=== PATIENT | female | born 1955 | race Caucasian/White ===

== ENCOUNTER 2022-01-07 09:32 | Outpatient (CLI) | payer MEDICARE, SELFPAY ==
--- NOTE | 2022-01-07 09:45 | CRLHL7_ITS ---
For Patients: As a result of the Century Cures Act, medical imaging exams and procedure reports are released immediately into your electronic medical record. You may view this report before your referring provider. If you have questions, please contact your health care provider. BILATERAL MAMMOGRAM WITH COMPUTER-AIDED DETECTION AND TOMOSYNTHESIS TECHNIQUE: CC and MLO views were obtained. These mammographic images have been obtained using full-field digital technique. These mammographic images were interpreted with the benefit of computer-aided detection. Breast Tomosynthesis was used in this interpretation. COMPARISON FILM: 12/21/2020, 12/21/2019, 08/06/2018. FINDINGS: The breasts are almost entirely fatty IMPRESSION: There is no radiographic evidence for malignancy. ASSESSMENT: BI-RADS Category 1: Negative RECOMMENDATION: Routine screening mammogram in 1 year. A lay language report of this examination will be provided to the patient. Ben Neville M.D. Diagnostic Radiologist [email or web address] DAYA/Dictated by: Ben Neville MD @ 01/07/2022 10:49:00 AM (Electronically Signed)
== END 2022-01-07 09:33 | disposition home or self-care (01) ==
LOC: MAMMO 09:39
PROVIDERS: PCP Family Medicine; Visit Provider Family Medicine
DX: Z12.31 Encounter for screening mammogram for malignant neoplasm of breast (principal); R92.2 Inconclusive mammogram
CPT/HCPCS: 77063; 77067

== ENCOUNTER 2022-02-26 13:18 | Outpatient (CLI) | payer MEDICARE, BC, SELFPAY | END 2022-02-26 13:19 | disposition home or self-care (01) | LOC: LONREF 13:19 | PROVIDERS: PCP Family Medicine; Visit Provider Family Medicine | DX: N39.0 Urinary tract infection, site not specified (principal) | CPT/HCPCS: 87086; 87186 ==

== ENCOUNTER 2022-04-24 07:32 | Outpatient (CLI) | payer MEDICARE, BC, SELFPAY ==
--- OUTSIDE RECORDS SUMMARY | 2022-04-24 07:33 | XMS_ITS | Encounter Summary ---
:1955 Author Organization [employer] Address [address] [place] [address] Care Team Providers Name Role Phone Colette Verma PA-C Primary Care Provider Reason for Visit Reason Onset Date Comments Refill 11/05/2018 metFORMIN (GLUCOPHAG E) 1000 MG tablet; omeprazole (PRILOSEC) 20 MG capsule Encounter Details Date Type Department Care Team Description 11/05/2018 Refill [facility] Colette Verma, Refill (metFORMIN Medicine CARLOS (GLUCOPHAGE) 1000 MG [address] tablet; omeprazole [place], [place] [address] (PRILOSEC) 20 [place] [id number] capsule) [phone] Social History Tobacco Use Types Packs/Day Years Used Date Smoking Tobacco: Former Cigarettes Quit : 01/25/2015 Smokeless Tobacco: Never Alcohol Use Standard Drinks/Week Comments Yes 0 (1 standard drink = 0.6 oz pure alcoho l) rare Sex Assigned at Date Recorded Not on file documented as of this encounter Nursing Notes Tiera Matos, RN - 11/08/2018 4:49 PM CDT Further Assistance Needed on Refill from Clinician RN reviewed. Patient overdue for lab(s). -> Rapid A1C ??is overdue (performed over 9 months ago, required every 6 months) ? Last qualifying visit: 02/15/2018 (with COLETTE VERMA) ? Next scheduled visit: None ? GFR (CrCl) estimated: >60 ml/min on 01/25/2018 Rapid A1C : 7.1 % on 01/25/2018 Review pended order for accuracy and sign if appropriate, Document if appointment is needed for further refills and route to care team to notify patient if needed. Requested Prescriptions Pending Prescriptions Disp Refills ??? metFORMIN (GLUCOPHAGE) 1000 MG tablet 360 Tablet 0 Sig: TAKE 2 TABS BY MOUTH TWICE DAILY WITH FOOD Signed Prescriptions Disp Refills ??? omeprazole (PRILOSEC) 20 MG capsule 90 Capsule 1 Sig: Take 1 Capsule by mouth daily. Take 1 hour before a meal. Authorizing Provider: COLETTE VERMA Ordering User: TIERA MATOS Interface, Out Surescripts Prov Query - 11/05/2018 1:21 PM CDT metFORMIN (GLUCOPHAGE) 1000 MG tablet Medication started: 01/25/2018 Last ordered by COLETTE VERMA R: 08/09/2018 (88 days ago) QTY: 360, Refills: 0, Sig: take 2 tabs by mouth twice daily with food (unchanged) -> This medication may not have been authorized by the requested provider. -> Rapid A1C is overdue (performed over 9 months ago, required every 6 months) Last qualifying visit: 02/15/2018 (with COLETTE VERMA) Next scheduled visit: None GFR (CrCl) estimated: >60 ml/min on 01/25/2018 Rapid A1C : 7.1 % on 01/25/2018 PATIENT IS DUE FOR: - HBA1C (PN ONLY) (Sent to [facility]) Powered by [employer], Reference: [id number], 11/05/2018 1:21:06 PM CDT, Pool: LAKVL REFILL ([id number]) omeprazole (PRILOSEC) 20 MG capsule Medication started: 01/25/2018 Last ordered by COLETTE VERMA R: 02/15/2018 (263 days ago) QTY: 90, Refills: 3, Sig: take 1 capsule by mouth daily. take 1 hour before a meal. (unchanged) -> The patient is requesting a renewal from a different pharmacy. -> Refill x 6 months, qty: 90, refills: 1 (until due for an office visit) Last qualifying visit: 02/15/2018 (with COLETTE VERMA) Next scheduled visit: None PATIENT IS DUE FOR: - HBA1C (PN ONLY) (Sent to [facility]) Powered by [employer], Reference: [id number], 11/05/2018 1:21:06 PM CDT, Pool: LAKVL REFILL ([id number]) documented in this encounter Plan of Treatment Not on filedocumented as of this encounter Visit Diagnoses Diagnosis Type 2 diabetes mellitus without complic ation, without long-term current use of insulin (HRC) Gastroesophageal reflux disease without esophagitis Esophageal reflux Essential hypertension (HRC) Unspecified essential hypertension documented in this encounter Care Teams Road Machinery Inspector Relationship Specialty Start Date End Date Colette Verma PA-C PCP - General Physician Public Relations Writer 01/19/18 [address] [place] [address] documented as of this encounter
--- OUTSIDE RECORDS SUMMARY | 2022-04-24 07:33 | XMS_ITS | Encounter Summary ---
:1955 Author Organization [employer] [email or web address] Address [address] [place] [address] Care Team Providers Name Role Phone Colette Verma PA-C Primary Care Provider Encounter Details Date Type Department Care Team Description 11/05/2018 Refill Order [facility] Colette Romero PA-C [address] [facility]. [address] [place] [address] [place] [address] [phone] (Wo rk) Social History Tobacco Use Types Packs/Day Years Used Date Smoking Tobacco: Former Cigarettes Quit : 01/25/2015 Smokeless Tobacco: Never Alcohol Use Standard Drinks/Week Comments Yes 0 (1 standard drink = 0.6 oz pure alcoho l) rare Sex Assigned at Date Recorded Not on file documented as of this encounter Nursing Notes Paulina Bean MA - 11/05/2018 1:38 PM CDT Labs to be addressed at future visit. Interface, Out Surescripts Prov Query - 11/05/2018 1:21 PM CDT SCHEDULE THE FOLLOWING: - HBA1C (PN ONLY) BY: Now (Due as of 07/24/2018 for metFORMIN (GLUCOPHAGE) 1000 MG tablet) - LAST QUALIFYING VISIT WITH COLETTE VERMA: 02/15/2018 - NEXT SCHEDULED VISIT: None - NEXT LAB APPOINTMENT: None Powered by [employer], Reference: [id number], 11/05/2018 1:21:06 PM CDT, Pool: FOREST LIGIA ([id number]) documented in this encounter Plan of Treatment Not on filedocumented as of this encounter Visit Diagnoses Diagnosis Encounter for long-term (current) use of medications - Primary Encounter for long-term (current) use of other medications documented in this encounter Care Teams Pattern Storage Clerk Relationship Specialty Start Date End Date Colette Verma PA-C PCP - General Physician Kiln Mechanic 01/19/18 [address] [place] [address] documented as of this encounter
--- OUTSIDE RECORDS SUMMARY | 2022-04-24 07:33 | XMS_ITS | Encounter Summary ---
:1955 Author Organization [employer] Address [address] [place] [address] Care Team Providers Name Role Phone Colette Verma PA-C Primary Care Provider Reason for Visit Reason Onset Date Comments Refill 11/05/2018 rosuvastatin (CRESTO R) 10 MG tablet; losartan (COZAAR) 25 MG tablet Encounter Details Date Type Department Care Team Description 11/05/2018 Refill [facility] Colette Verma, Refill (rosuvastatin Medicine CARLOS (CRESTOR) 10 MG tablet; [address] losartan (COZAAR) 25 MG [place], [place] [address] tablet) [id number] [phone] Social History Tobacco Use Types Packs/Day Years Used Date Smoking Tobacco: Former Cigarettes Quit : 01/25/2015 Smokeless Tobacco: Never Alcohol Use Standard Drinks/Week Comments Yes 0 (1 standard drink = 0.6 oz pure alcoho l) rare Sex Assigned at Date Recorded Not on file documented as of this encounter Nursing Notes Colette Verma PA-C - 11/07/2018 10:10 AM CDT OK, that's fine then. She should be getting refills from the person she is seeing. Colette Balderrama Ashleigh Vargas LPN - 11/05/2018 4:26 PM CDT Adeola returning phone call, states she has a new provider and has recently had all of her appointments. Adeola will notify the pharmacy to contact her new provider for further medication refills. Ashleigh Vargas LPN - 11/05/2018 4:18 PM CDT Left message for patient to call back. [facility] ([facility]), please warm transfer call to extension [phone] to discuss. If no answer at extension, re-route to appropriate pool per callrouting grid. Message to Patient/Caller: Left message for Kristan to return call to clinic for Colette's message. Colette Verma PA-C - 11/05/2018 4:16 PM CDT Please notify pt I refilled her meds for 30 days only. She is very overdue for annual exam/pap/diabetes check and labs. I would like her to come in for lab only fasting (but well hydrated) to do her labs first some morning as soon as she can and then schedule an annual exam/pap/med check visit for a couple days after that so we can update her full physical, discuss labs, do refills and update preventative medicine needed also. ThanksColette Monserrat Gregg RN - 11/05/2018 1:27 PM CDT Further Assistance Needed on Refill from Clinician RN reviewed. Medication ordered for short term. Please advise if longterm supply is appropriate Last qualifying visit: 02/15/2018 (with COLETTE VERMA) ? Next scheduled visit: None ? Review pended order for accuracy. Sign if appropriate. Document if appointment is needed for furtherrefills. Route to care team to notify patient if needed. Requested Prescriptions Pending Prescriptions Disp Refills ??? rosuvastatin (CRESTOR) 10 MG tablet 90 Tablet 1 Sig: Take 1 Tablet by mouth daily. ??? losartan (COZAAR) 25 MG tablet 90 Tablet 0 Sig: Take 1 Tablet by mouth daily. Interface, Out Surescripts Prov Query - 11/05/2018 1:21 PM CDT losartan (COZAAR) 25 MG tablet Medication started: 02/15/2018 Last ordered by COLETTE VERMA R: 08/04/2018 (93 days ago) QTY: 90, Refills: 1, Sig: take 1 tablet bymouth every day (changed but equivalent) -> Refill x 3 months (until due for a(n) Cr check and K check) Last qualifying visit: 02/15/2018 (with COLETTE VERMA) Next scheduled visit: None SBP: 122 mm Hg on 02/15/2018 DBP: 78 mm Hg on 02/15/2018 Cr: 0.7 mg/dL on 01/25/2018 K: 4.4 mEq/L on 01/25/2018 PATIENT IS DUE FOR: - HBA1C (PN ONLY) (Sent to [facility]) Powered by [email or web address], Reference: [id number], 11/05/2018 1:21:06 PM CDT, Pool: FOREST REFILL ([id number]) rosuvastatin (CRESTOR) 10 MG tablet Medication started: 01/25/2018 Last ordered by COLETTE VERMA: 08/09/2018 (88 days ago) QTY: 30, Refills: 0, Sig: take 1 tablet bymouth every day (changed but equivalent) -> Refill x 6 months, qty: 90, refills: 1 (until due for an office visit) Last qualifying visit: 02/15/2018 (with COLETTE VERMA) Next scheduled visit: None PATIENT IS DUE FOR: - HBA1C (PN ONLY) (Sent to [facility]) Powered by [email or web address], Reference: [id number], 11/05/2018 1:21:06 PM CDT, Pool: FOREST REFILL ([id number]) documented in this encounter Plan of Treatment Not on filedocumented as of this encounter Visit Diagnoses Diagnosis Essential hypertension (HRC) Unspecified essential hypertension Type 2 diabetes mellitus without complic ation, without long-term current use of insulin (HRC) documented in this encounter Care Teams Pharmacy Data Analyst Relationship Specialty Start Date End Date Colette Verma, HEAVENC PCP - General Physician Teleprinter Installer 01/19/18 [address] [place] [address] documented as of this encounter
--- OUTSIDE RECORDS SUMMARY | 2022-04-24 07:33 | XMS_ITS | Encounter Summary ---
:1955 Author Organization [facility] Address [address] [address] Care Team Providers Name Role Phone Colette Verma PA-C Primary Care Provider Encounter Details Date Type Department Care Team Description 07/21/2018 [facility] [address] [address] [place], [place] [id number] [place] [address] [phone] (Wo rk) Social History Tobacco Use Types Packs/Day Years Used Date Smoking Tobacco: Former Cigarettes Quit : 01/25/2015 Smokeless Tobacco: Never Alcohol Use Standard Drinks/Week Comments Yes 0 (1 standard drink = 0.6 oz pure alcoho l) rare Sex Assigned at Date Recorded Not on file documented as of this encounter Plan of Treatment Not on filedocumented as of this encounter Visit Diagnoses Not on filedocumented in this encounter Care Teams Cheese Production Supervisor Relationship Specialty Start Date End Date Colette Verma PA-C PCP - General Physician Retail Sales Assistant 01/19/18 [address] [place] [address] documented as of this encounter
--- OUTSIDE RECORDS SUMMARY | 2022-04-24 07:33 | XMS_ITS | Encounter Summary ---
:1955 Author Organization [facility] Address [address] [place] [address] Care Team Providers Name Role Phone Colette Verma PA-C Primary Care Provider Encounter Details Date Type Department Care Team Description 12/27/2018 Notes/Orders [facility] Colette Verma Screeni ng for colon Medicine PACandice [facility] [address] [address] [address] [place] [address] [phone] Social History Tobacco Use Types Packs/Day Years Used Date Smoking Tobacco: Former Cigarettes Quit : 01/25/2015 Smokeless Tobacco: Never Alcohol Use Standard Drinks/Week Comments Yes 0 (1 standard drink = 0.6 oz pure alcoho l) rare Sex Assigned at Date Recorded Not on file documented as of this encounter Plan of Treatment Not on filedocumented as of this encounter Visit Diagnoses Diagnosis Screening for colon cancer Special screening for malignant neoplasm s, colon documented in this encounter Care Teams Aeronautical Inspector Relationship Specialty Start Date End Date Colette Verma PA-C PCP - General Physician Assessment Technician 01/19/18 [address] [place] [address] documented as of this encounter
--- OUTSIDE RECORDS SUMMARY | 2022-04-24 07:33 | XMS_ITS | Encounter Summary ---
:1955 Author Organization [facility] Address [address] [place] [address] Care Team Providers Name Role Phone Colette Verma PA-C Primary Care Provider Reason for Visit Reason Comments Refill losartan (COZAAR) 25 MG tabl et [Pharmacy Med Name: LOSARTAN POTASSIUM 25 MG TAB] Encounter Details Date Type Department Care Team Description 08/04/2018 Refill [facility] Colette Verma, Refill (losartan Medicine CARLOS (COZAAR) 25 MG tablet [address] [Pharmacy Med Name: [place], [place] [address] LOSARTAN POTASSIUM 25 MG [id number] TAB]) [phone] Social History Tobacco Use Types Packs/Day Years Used Date Smoking Tobacco: Former Cigarettes Quit : 01/25/2015 Smokeless Tobacco: Never Alcohol Use Standard Drinks/Week Comments Yes 0 (1 standard drink = 0.6 oz pure alcoho l) rare Sex Assigned at Date Recorded Not on file documented as of this encounter Nursing Notes Reshma Murphy RN - 08/04/2018 10:30 AM CST Renewed medication per medication refill protocol. Requested Prescriptions Pending Prescriptions Disp Refills losartan (COZAAR) 25 MG tablet [Pharmacy Med Name: LOSARTAN POTASSIUM 25 MG TAB] 90 Tablet 1 Sig: TAKE 1 TABLET BY MOUTH EVERY DAY [facility] Interface, Out Surescripts Prov Query - 08/04/2018 2:16 AM CST losartan (COZAAR) 25 MG tablet [Pharmacy Med Name: LOSARTAN POTASSIUM 25 MG TAB] Medication started: 02/15/2018 Last ordered by COLETTE VERMA R: 02/15/2018 (170 days ago) QTY: 90, Refills: 1, Sig: take 1 tablet by mouth daily. (changed but equivalent) -> Refill x 6 months, qty: 90, refills: 1 (until due for a(n) Cr check and K check) Last qualifying visit: 02/15/2018 (with COLETTE VERMA) Next scheduled visit: None SBP: 122 mm Hg on 02/15/2018 DBP: 78 mm Hg on 02/15/2018 Cr: 0.7 mg/dL on 01/25/2018 K: 4.4 mEq/L on 01/25/2018 Powered by [employer], Reference: [id number], 08/04/2018 2:16:26 AM KATIE, Ayad: FOREST REFILL ([id number]) [address] documented in this encounter Plan of Treatment Not on filedocumented as of this encounter Visit Diagnoses Diagnosis Essential hypertension (HRC) Unspecified essential hypertension documented in this encounter Care Teams Drosophere Operator Relationship Specialty Start Date End Date Colette Verma PA-C PCP - General Physician Nut Sorter 01/19/18 [address] [place], [place] [address] documented as of this encounter
--- OUTSIDE RECORDS SUMMARY | 2022-04-24 07:33 | XMS_ITS | Clinical Summary ---
:[address] [facility] Address [address] [place] [address] Care Team Providers Name Role Phone Colette Verma PA-C Primary Care Provider Source Comments You are receiving this document as you are listed as the primary care provider,follow-up provider, or the patient has been referred to you for consultation.This is in compliance with the Medicare and Medicaid EHR Incentive Program,which states Providers who transition their patient to another setting of careor provider of care or refers their patient to another provider of care shouldprovide summarycare record for each transition of care or referral. [employer] Allergies No known active allergies Medications Medication Sig Dispensed Refills Start Date End Date Status aspirin, enteric-coated Take 81 mg by 0 Active 81 MG enteric coated mouth daily. tablet Adalimumab (HUMIRA) 40 1 shot twice a 0 Active MG/0.4ML PSKT month nystatin (MYCOSTATIN) Apply to rash 60 g 5 01/25/2018 Active 648282 UNIT/GM under breasts creamIndications: bid prn Edwige infection of flexural skin blood glucose (ACCU-CHEK Use to test 100 Strip 3 07/02/2018 Active CARLY PLUS) test strip daily. ICD 10 - E11.9 ACCU-CHEK CARLY PLUS Use to test 1 Each 0 07/02/2018 Active meter daily. DX CODE: E11.9 lancets (ACCU-CHEK Use to test 100 Each 3 07/02/2018 Active FASTCLIX) daily. ICD 10 - E11.9 metFORMIN (GLUCOPHAGE) TAKE 2 TABS BY 360 Tablet 0 08/09/2018 Active 1000 MG MOUTH TWICE tabletIndications: Type DAILY WITH FOOD 2 diabetes mellitus without complication, without long-term current use of insulin (HRC) rosuvastatin (CRESTOR) Take 1 Tablet 30 Tablet 0 11/05/2018 Active 10 MG tabletIndications: by mouth daily. Type 2 diabetes mellitus without complication, without long-term current use of insulin (HRC) omeprazole (PRILOSEC) 20 Take 1 Capsule 90 Capsule 1 9 Active MG capsuleIndications: by mouth daily. Gastroesophageal reflux Take 1 hour disease without before a meal. esophagitis losartan (COZAAR) 25 MG Take 1 Tablet 30 Tablet 0 11/05/2018 Active tabletIndications: by mouth daily. Essential hypertension (HRC) Active Problems Problem Noted Date Type 2 diabetes mellitus without complication, without long-term current 01/25/2018 use of insulin Morbid obesity with BMI of 40.0-44.9, adult 01/25/2018 Psoriasis 01/25/2018 Gastroesophageal reflux disease without esophagitis Hx of bladder cancer 01/25/2018 Essential hypertension 01/25/2018 Edwige infection of flexural skin 01/25/2018 Family History Medical History Relation Name Comments Diabetes Father Heart Disease Father Alzheimer's Mother No Known Problems Son Natanael Relation Name Status Comments Father Mother Alive Son Natanael Alive Social History Tobacco Use Types Packs/Day Years Used Date Smoking Tobacco: Former Cigarettes Quit : 01/25/2015 Smokeless Tobacco: Never Alcohol Use Standard Drinks/Week Comments Yes 0 (1 standard drink = 0.6 oz pure alcoho l) rare Sex Assigned at Date Recorded Not on file Last Filed Vital Signs Vital Sign Reading Time Taken Comments Blood Pressure 122/78 02/15/2018 1:58 PM CDT Pulse 76 02/15/2018 1:58 PM CDT Temperature 36.1 ??C (97 ??F) 01/27/2018 5:00 PM CDT Respiratory Rate 20 01/27/2018 5:00 PM CDT Oxygen Saturation 99% 01/27/2018 5:00 PM CDT Inhaled Oxygen Concentration - - Weight 111.6 kg (246 lb) 01/27/2018 1:00 PM CDT Height 163.8 cm (5' 4.49) 01/27/2018 1:00 PM CDT Body Mass Index 41.59 01/27/2018 1:00 PM CDT Plan of Treatment Health Maintenance Due Date Last Done Comments Colon Cancer Screening Plan 1955 Due Diabetes: Eye Exam 1955 Diabetes: Foot Exam 1955 Diabetes: Lipid Panel 1955 Hep C Screening (Preventive 1955 Services) COVID-19 Vaccine (#1) 01/17/1956 Adult Preventive Visit 1973 Zoster/Shingles (1 of 2) 2005 Diabetes: HGBA1C 04/27/2018 01/25/2018 Mammogram 05/12/2018 05/12/2017 (Completed) Diabetes: Creatinine 01/25/2019 01/25/2018 Diabetes: Urine 02/15/2019 02/15/2018 Microalbumin Pneumococcal 65+ Yrs (2 - 09/28/2021 09/28/2020 PCV) Influenza (#1) 2022 04/17/2020, 04/04/2019, 06/01/2017, Additional history exists DTaP/Tdap/Td (2 - Tdap) 06/09/2024 06/09/2014 HepA Aged Out No longer eligib le based on patient 's age to complete this topic HepB Aged Out No longer eligib le based on patient 's age to complete this topic Hib Aged Out No longer eligib le based on patient 's age to complete this topic IPV (Polio) Aged Out No longer eligib le based on patient 's age to complete this topic MCV4 Aged Out No longer eligib le based on patient 's age to complete this topic Insurance Payer Benefit Plan / Subscriber Effective Phone Address Type Group ID Dates RISK RISK [id number] 11/15/2017-P [phone] Workers Comp ADMINISTRATION ADMINISTRATION resent [phone] SERVICES SERVICES [facility] [place] [phone] CIGNA CIGNA [id number] 06/29/2017-Pr [phone] Commer cial esent [phone] IVÁN MOONEY, ASHWINI [id number] Guarantor Name Account Type Relation to Date of Phone Billing Address Patient Adeola Hector Personal/Famil Self 1955 [id number] ([place]) [facility] [place] [phone] (Work) Adeola Hector Personal/Famil Self [address] y (Home) [place] [phone] [place] (Work) [phone] Adeola Hector Personal/Famil Self [address] (Home) [place] [phone] [place] (Work) [phone] Adeola Hector Workers Comp Self [address] (Home) [place] [address] Adeola Hector Workers Comp Self [address] (Home) [place] [address] Care Teams Water Chemist Relationship Specialty Start Date End Date Colette Verma PA-C PCP - General Physician Naphthalene Operator Helper 01/19/18 [address] [place] [address]
--- OUTSIDE RECORDS SUMMARY | 2022-04-24 07:33 | XMS_ITS | Encounter Summary ---
:1955 Author Organization [facility] Address [address] [place] [address] Care Team Providers Name Role Phone Colette Verma PA-C Primary Care Provider Reason for Visit Reason Onset Date Comments Refill Refill 08/09/2018 Encounter Details Date Type Department Care Team Description 08/08/2018 Refill [facility] Colette Romero PA-C Refill; Refill [address] [address] [place] [address] [place], [place] [phone] (Wo rk) Social History Tobacco Use Types Packs/Day Years Used Date Smoking Tobacco: Former Cigarettes Quit : 01/25/2015 Smokeless Tobacco: Never Alcohol Use Standard Drinks/Week Comments Yes 0 (1 standard drink = 0.6 oz pure alcoho l) rare Sex Assigned at Date Recorded Not on file documented as of this encounter Nursing Notes Susanne Pizano RN - 08/09/2018 2:10 PM CST Renewed medication per medication refill protocol. Requested Prescriptions Signed Prescriptions Disp Refills ??? metFORMIN (GLUCOPHAGE) 1000 MG tablet 360 Tablet 0 Sig: TAKE 2 TABS BY MOUTH TWICE DAILY WITH FOOD Authorizing Provider: COLETTE VERMA Ordering User: SUSANNE PIZANO CREAM MAN Interface, Out Surescripts Prov Query - 08/08/2018 8:44 AM CST metFORMIN (GLUCOPHAGE) 1000 MG tablet [Pharmacy Med Name: METFORMIN HCL 1,000 MG TABLET] Medication started: 01/25/2018 Last ordered by COLETTE VERMA R: 02/15/2018 (174 days ago) QTY: 360, Refills: 1, Si tabs po bid with food (changed) -> This medication may not have been authorized by the requested provider. -> Due to an unreadable sig, manually ensure the patient is due for a renewal. -> The requested sig has changed from the last order. -> Refill x 3 months (courtesy refill, overdue for a(n) Rapid A1C check) Last qualifying visit: 02/15/2018 (with COLETTE VERMA) Next scheduled visit: None GFR (CrCl) estimated: >60 ml/min on 01/25/2018 Rapid A1C : 7.1 % on 01/25/2018 PATIENT IS DUE FOR: - HBA1C (PN ONLY) (Sent to [facility]) Powered by YesVideo, Reference: [id number], 08/08/2018 8:44:50 AM ICE CREAM MAN, Pool: FOREST REFILL ([id number]) CREAM MAN documented in this encounter Plan of Treatment Not on filedocumented as of this encounter Visit Diagnoses Diagnosis Type 2 diabetes mellitus without complic ation, without long-term current use of insulin (HRC) documented in this encounter Care Teams Vac Press Operator Relationship Specialty Start Date End Date Colette Verma PA-C PCP - General Physician Rfid Systems Engineer 01/19/18 [address] [place] [address] documented as of this encounter
--- OUTSIDE RECORDS SUMMARY | 2022-04-24 07:33 | XMS_ITS | Encounter Summary ---
:1955 Author Organization [facility] Address [address] [place] [address] Care Team Providers Name Role Phone Colette Verma PA-C Primary Care Provider Encounter Details Date Type Department Care Team Description 08/08/2018 Refill Order [facility] [address] [facility] [address] [place] [address] [place] [address] [phone] (Wo rk) Social History Tobacco Use Types Packs/Day Years Used Date Smoking Tobacco: Former Cigarettes Quit : 01/25/2015 Smokeless Tobacco: Never Alcohol Use Standard Drinks/Week Comments Yes 0 (1 standard drink = 0.6 oz pure alcoho l) rare Sex Assigned at Date Recorded Not on file documented as of this encounter Nursing Notes Billie Wilson - 08/09/2018 10:27 AM CST Labs to be addressed at future visit. SERVICER HELPER Interface, Out Surescripts Prov Query - 08/08/2018 8:44 AM CST SCHEDULE THE FOLLOWING: - HBA1C (PN ONLY) BY: Now (Due as of 07/24/2018 for metFORMIN (GLUCOPHAGE) 1000 MG tablet) - LAST QUALIFYING VISIT WITH COLETTE VERMA: 02/15/2018 - NEXT SCHEDULED VISIT: None - NEXT LAB APPOINTMENT: None Powered by Codeship, Reference: [id number], 08/08/2018 8:44:50 AM Ayad WILSON: FOREST LIGIA ([id number]) E documented in this encounter Plan of Treatment Not on filedocumented as of this encounter Visit Diagnoses Diagnosis Encounter for long-term (current) use of medications - Primary Encounter for long-term (current) use of other medications documented in this encounter Care Teams Investor Relationship Specialty Start Date End Date Colette Verma PA-C PCP - General Physician Mixer Wet Pour 01/19/18 [address] [place] [address] documented as of this encounter
--- OUTSIDE RECORDS SUMMARY | 2022-04-24 07:33 | XMS_ITS | Encounter Summary ---
:1955 Author Organization [facility] Address [address] [place] [address] Care Team Providers Name Role Phone Colette Verma PA-C Primary Care Provider Reason for Visit Reason Comments Refill rosuvastatin (CRESTOR) 10 MG tablet [Pharmacy Med Name: ROSUVASTATIN CALCIUM 10 MG TAB] Encounter Details Date Type Department Care Team Description 08/08/2018 Refill [facility] Colette Verma, Refill (rosuvastatin Medicine CARLOS (CRESTOR) 10 MG tablet [address]. [address] [facility] [Pharmacy Med Name: [place], [place] [address] ROSUVASTATIN CALCIUM 10 [id number] MG TAB]) [phone] Social History Tobacco Use Types Packs/Day Years Used Date Smoking Tobacco: Former Cigarettes Quit : 01/25/2015 Smokeless Tobacco: Never Alcohol Use Standard Drinks/Week Comments Yes 0 (1 standard drink = 0.6 oz pure alcoho l) rare Sex Assigned at Date Recorded Not on file documented as of this encounter Nursing Notes Delilah Treviño LPN - 08/09/2018 12:55 PM CST Spoke with patient let her know that RX has been sent in for refill, but no additional refills will be given until patient is seen for annual exam. Patient should come and have lab work done prior to appointment, labs are pended. TER HAND Colette Verma PA-C - 08/09/2018 12:33 PM CST Please call pt and let them know they are overdue for annual exam and diabetes check and need to schedule that before anymore refills after this one. I put in her lab orders so I would like her to do fasting labs first (but drink water that day) and then see me a couple days after that for annual exam/diabetes check and we'll go over the labs also. Colette Balderrama TER HAND Monserrat Gregg, RN - 08/09/2018 10:31 AM CST Further Assistance Needed on Refill from Clinician RN reviewed. Medication ordered for short term. Please advise if deputy of counter intelligence supply is appropriate Last qualifying visit: 02/15/2018 (with COLETTE VERMA) ? Next scheduled visit: None ? Review pended order for accuracy. Sign if appropriate. Document if appointment is needed for furtherrefills. Route to care team to notify patient if needed. Requested Prescriptions Pending Prescriptions Disp Refills ??? rosuvastatin (CRESTOR) 10 MG tablet [Pharmacy Med Name: ROSUVASTATIN CALCIUM 10 MG TAB] 90 Tablet 2 Sig: TAKE 1 TABLET BY MOUTH EVERY DAY TER HAND Interface, Out Surescripts Prov Query - 08/08/2018 8:44 AM CST rosuvastatin (CRESTOR) 10 MG tablet [Pharmacy Med Name: ROSUVASTATIN CALCIUM 10 MG TAB] Medication started: 01/25/2018 Last ordered by COLETTE VERMA R: 02/15/2018 (174 days ago) QTY: 90, Refills: 1, Sig: take 1 tablet by mouth daily. (changed but equivalent) -> Refill x 9 months, qty: 90, refills: 2 (until due for an office visit) Last qualifying visit: 02/15/2018 (with COLETTE VERMA) Next scheduled visit: None PATIENT IS DUE FOR: - HBA1C (PN ONLY) (Sent to [facility]) Powered by Intelipost, Reference: [id number], 08/08/2018 8:44:50 AM PLEATER HAND, Pool: FOREST REFILL ([id number]) TER HAND documented in this encounter Plan of Treatment Not on filedocumented as of this encounter Visit Diagnoses Diagnosis Essential hypertension (HRC) - Primary Unspecified essential hypertension Type 2 diabetes mellitus without complic ation, without long-term current use of insulin (HRC) documented in this encounter Care Teams Reporting Developer Relationship Specialty Start Date End Date Colette Verma, PADebiC PCP - General Physician Transport Coordinator 01/19/18 [address] [place] [address] documented as of this encounter
--- OUTSIDE RECORDS SUMMARY | 2022-04-24 07:33 | XMS_ITS | Encounter Summary ---
:1955 Author Organization [facility] Address [address] [place] [address] Care Team Providers Name Role Phone Colette Verma PA-C Primary Care Provider Reason for Visit Reason Onset Date Comments Refill 07/02/2018 Encounter Details Date Type Department Care Team Description 07/02/2018 Refill [facility] Colette Romero PA-C Refill [address]. [address] [place] [address] [place], [place] [phone] (Wo rk) Social History Tobacco Use Types Packs/Day Years Used Date Smoking Tobacco: Former Cigarettes Quit : 01/25/2015 Smokeless Tobacco: Never Alcohol Use Standard Drinks/Week Comments Yes 0 (1 standard drink = 0.6 oz pure alcoho l) rare Sex Assigned at Date Recorded Not on file documented as of this encounter Nursing Notes Monserrat Gregg, RN - 07/02/2018 5:07 PM CST Renewed medication per medication refill protocol. Requested Prescriptions Signed Prescriptions Disp Refills ??? blood glucose (ACCU-CHEK CARLY PLUS) test strip 100 Strip 3 Sig: Use to test daily. ICD 10 - E11.9 Authorizing Provider: COLETTE VERMA Ordering User: MONSERRAT GREGG ??? ACCU-CHEK CARLY PLUS meter 1 Each 0 Sig: Use to test daily. DX CODE: E11.9 Authorizing Provider: COLETTE VERMA Ordering User: MONSERRAT GREGG ??? lancets (ACCU-CHEK FASTCLIX) 100 Each 3 Sig: Use to test daily. ICD 10 - E11.9 Authorizing Provider: COLETTE VERMA Ordering User: MONSERRAT GREGG SPORTATION CONSULTANT documented in this encounter Plan of Treatment Not on filedocumented as of this encounter Visit Diagnoses Not on filedocumented in this encounter Care Teams Certified Athletic Trainer Relationship Specialty Start Date End Date Colette Verma, PADebiC PCP - General Physician Software Developer Mid Level 01/19/18 [address] [place] [address] documented as of this encounter
--- OUTSIDE RECORDS SUMMARY | 2022-04-24 07:34 | XMS_ITS | Encounter Summary ---
:1955 Author Organization [facility] Address [address] [place] [address] Care Team Providers Name Role Phone Bayron Colette Pagan PA-C Primary Care Provider Encounter Details Date Type Department Care Team Description 01/27/2018 Anesthesia Event [facility] Nasrin Carlton MD [address] [place], [place] [address] [address] [facility] Yossi Allen MD [address] [place] [address] [place], [place] [address] Anesthesia Record Procedure Summary Procedure Name Responsible Anesthesia Start Anesthesia Stop Anesthesiologist Time Time RIGHT knee arthroscopy Nasrin Carlton 01/27/18 1431 01/27/18 1516 jose Pagan MD meniscectomy, chondroplasty (Right: Knee) Events Date Time Event Comment 01/27/2018 1326 IV plmt Shima diaz APRN, PIPELINE SUPERINTENDENT DIVISION 1333 IV Plmt Comp IV was placed in Preop area by Shima Ham APRN, ERICA for a dministration of IV fluids, IV antibiotics, and IV pre-op sedation. Patient was continuously mon itored by Shima Ham APRN, CRNA durin g the placement. 1431 An Start 1435 MD/DO Present 1438 An Start Data 1438 An Induction 1500 MD/DO Present 1511 an stop data 1516 An Stop Care transferred . 1516 Care Handoff Note I discussed wi th the receiving nurse and we: 1) Identified the p atient, branch family member(s) or patient surrogat e 2) Identified the responsible practitioner 3) Reviewed the pertinent medical history 4) Discu ssed the surgical/procedure course 5) Reviewed intr a-op anesthesia management and issues during an esthesia 6) Set expectations for the post-procedu re period 7) Allowed opportunity for questions an d acknowledgement of understanding of report Electr onically signed by Margaux Thornton APRN, C RNA Name Total ceFAZolin (aka ANCEF) 2 g in dextrose 100 ml IVPB 2 g midazolam 2 mg/2 mL injection (aka VERSED) 2 mg FENTanyl injection (aka SUBLIMAZE) 100 mcg propofol 10 mg/mL (aka diPRIvan) 175.77 mg lidocaine 2% PF injection aka (XYLOCAINE) 60 mg ketorolac 30 mg/mL injection (aka TORADOL) 30 mg dextrose 50% injection (aka d50) 25 mL lactated ringer infusion 800 mL Agents Name O2 Blood No blood administrations on file. Lines, Drains, and Airways Type Details Placement Removal Peripheral IV Placement Date: 01/27/18 1326 by 02/10/18 1725 b y Lda, 01/27/18; Placement Shima Ham ue Time: 1326; CLEO Lares CRNA Pre-existing: No; Inserted by?: PIPELINE SUPERINTENDENT DIVISION; Orientation: Right; Site Prep: Alcohol; Local Anesthetic: Injectable, Lidocaine 1%; Insertion attempts: 1; Blood draw with insertion?: no; Patient Tolerance: Tolerated well; Removal Date: 02/10/18; Removal Time: 1725 Incision/Surgical Site 01/27/18; 1454; #1; 01/27/18 1454 by 0811/13 1725 by Tashi, No; Knee; Right; Liss Shah Discontinu e 02/10/18; 1725 RN documented in this encounter Social History Tobacco Use Types Packs/Day Years Used Date Smoking Tobacco: Former Cigarettes Quit : 01/25/2015 Smokeless Tobacco: Never Alcohol Use Standard Drinks/Week Comments Yes 0 (1 standard drink = 0.6 oz pure alcoho l) rare Sex Assigned at Date Recorded Not on file documented as of this encounter Miscellaneous Notes Anesthesia Postprocedure Evaluation - Luis Lama MD - 01/27/2018 3:59 PM CDT [facility] Anesthesia Post-op Note Patient: Adeola Hector Post-Op Diagnosis: Right knee pain Procedure Performed: Procedure(s): RIGHT knee arthroscopy partial medial meniscectomy, chondroplasty Anesthesia Type: Spinal Post-op vital signs: BP (P) 107/56 Pulse (!) (P) 53 Temp 97.7 ??F (36.5 ??C) (Oral) Resp (P) 16 Ht 5' 4.49 Wt 111.6 kg (246 lb) SpO2 (P) 94% BMI 41.59 kg/m2 Pain Score: Preferred Pain Scale: (P) number (Numeric Rating Pain Scale) Pain Rating (0-10): Rest: (P) 0 Post-op assessment: No anesthesia complication. Patient location: PACU Airway Status: Patent Cardiovascular function: Satisfactory Hydration status: Satisfactory PONV: None Level of Consciousness: Awake Fully Participates Postop Assessment: Patient tolerated procedure well. Electronically signed by: Luis Lama MD 01/27/2018 3:59 PM Anesthesia Preprocedure Evaluation - Nasrin Carlton MD - 01/27/2018 3:06 PM CDT [facility] Anesthesia Pre-op Evaluation Procedure: Procedure(s): RIGHT knee arthroscopy partial medial meniscectomy, chondroplasty HPI: 62 y.o. old female with Right knee pain NPO Status: Last Fluid Intake Time: 2300 Last Fluid Intake Date: 01/26/18 (0930 sips apple juice with meds) Last Food Intake Date: 01/26/18 Last Food Intake Time: 2299 No Known Allergies Past Medical History: Diagnosis Date ??? Cancer (HRC) 2012 bladder ??? Diabetes mellitus (HRC) ??? Gastroesophageal reflux disease ??? Obese (HRC) ??? Plaque psoriasis ??? Type 2 diabetes mellitus (HRC) Patient Active Problem List Diagnosis ??? Type 2 diabetes mellitus without complication, without long-term current use of insulin (HRC) ??? Morbid obesity with BMI of 40.0-44.9, adult (HRC) ??? Psoriasis ??? Gastroesophageal reflux disease without esophagitis ??? Hx of bladder cancer ??? Essential hypertension (HRC) ??? Edwige infection of flexural skin Past Surgical History: Procedure Laterality Date ??? BLADDER SURGERY 2012 bladder cancer ??? TONSILLECTOMY Outpatient Prescriptions Marked as Taking for the 01/27/18 encounter (Hospital Encounter) Medication Sig Dispense Refill ??? Adalimumab (HUMIRA) 40 MG/0.4ML PSKT 1 shot twice a month ??? amLODIPine (NORVASC) 5 MG tablet Take 5 mg by mouth daily. ??? metFORMIN (GLUCOPHAGE) 1000 MG tablet Take 1,000 mg by mouth two times a day with meals. ??? omeprazole (PRILOSEC) 20 MG capsule Take 20 mg by mouth daily. Take 1 hour before a meal. ??? rosuvastatin (CRESTOR) 10 MG tablet Take 10 mg by mouth daily. ??? [DISCONTINUED] omeprazole (PRILOSEC) 10 MG capsule Take 10 mg by mouth daily. Take 1 hour beforea meal. Current Facility-Administered Medications Medication Dose Route Frequency ??? chloroprocaine (NESACAINE) 3 % injection 2 mL 2 mL Regional Nerve Block Once ??? dextrose (D50) injection 25 g 25 g Intravenous PRN based on Blood Sugar ??? ropivacaine (NAROPIN) injection ONCE PRN Facility-Administered Medications Ordered in Other Encounters Medication Dose Route Frequency ??? dextrose (D50) injection ??? fentaNYL (SUBLIMAZE) injection Intravenous ??? ketorolac (TORADOL) injection Intravenous ??? lactated ringers infusion Intravenous ??? lidocaine 2% PF (XYLOCAINE) injection Intravenous ??? midazolam (aka VERSED) injection Intravenous ??? propofol (aka diPRIvan) injection Intravenous Labs: Lab Results Component Value Date/Time SODIUM 139 01/25/2018 02:25 PM K 4.4 01/25/2018 02:25 PM CHLORIDE 102 01/25/2018 02:25 PM BUN 19 01/25/2018 02:25 PM CREATININE 0.70 01/25/2018 02:25 PM GLUCOSE 108 (H) 01/25/2018 02:25 PM Lab Results Component Value Date/Time WBC 8.9 01/25/2018 02:25 PM HGB 15.6 (H) 01/25/2018 02:25 PM HCT 46.4 (H) 01/25/2018 02:25 PM PLTS 236 01/25/2018 02:25 PM No results found for: INR No results found for: HCGQUANT Urine : Urine : Blood Bank: No results found for: ABORH, ABSCR EKG: No results found for this or any previous visit. Physical Exam: BP (!) 144/66 Pulse 72 Temp 98.4 ??F (36.9 ??C) (Oral) Resp 18 Ht 5' 4.49 Wt 111.6 kg (246 lb) SpO2 96% BMI 41.59 kg/m2 Assessment/Plan: Review of Systems Patient has GERD. GERD controlled with medication. Patient is not a smoker. The patient denies alcohol use. Patient denies any recent URI. History of PONV: No. History of motion sickness: No. Patient denies any personal or family history of anesthesia complications (PONV). Exam Mental Status: Alert and oriented. Mallampati score: I (One). Mouth opening: Normal Thyromental Distance: > 3 finger breadths and Normal Neck Extension: Full Neck Circumference > 40 cm?: No Current airway assessment:Normal Dentition: Normal. Cardiac Exam: Regular rate and rhythm. Respiratory Exam: Breath sounds clear to auscultation Assessment ASA Status: 3 . Plan Anesthesia type: Spinal Induction: Maintenance: Postoperative pain management (PONV): Plan for postoperative opioid use PONV Risk Score Peds:0 PONV Risk Score Adult: 3 Anesthetic plan, risks, benefits and alternatives discussed with: Patient H&P Reviewed and Patient examined, no change observed IV access Antibiotics per surgery Electronically signed by: Nasrin Carlton MD 01/27/2018 3:06 PM documented in this encounter Plan of Treatment Not on filedocumented as of this encounter Visit Diagnoses Not on filedocumented in this encounter Administered Medications Inactive Administered Medications - up to 3 most recent administrations Medication Order MAR Action Action Date Dose Rate Site ceFAZolin (aka ANCEF) 2 g in Given 01/27/2018 2:35 PM CDT 2 g dextrose 100 ml IVPB 2 g, Intravenous, Administer over 30 Minutes, ONCE, On Thu01/27/18 at 1400, For 1 dose, Infuse within 60 minutes prior to incision; Re-dose 1 gram IV every 4 hours after initial dose until incision closed., Pre-op dextrose (D50) injection Given 01/27/2018 2:49 PM CDT 25 mL Starting on Thu01/27/18 at 1449 fentaNYL (SUBLIMAZE) injection Given 01/27/2018 2:35 PM CDT 100 mcg Intravenous, Starting on Thu01/27/18 at 1435 ketorolac (TORADOL) injection Given 01/27/2018 3:04 PM CDT 30 mg Intravenous, Starting on Thu01/27/18 at 1504, Until Thu01/27/18 at 1516 lactated ringers infusion Started 01/27/2018 2:31 PM CDT Starting on Thu01/27/18 at 1431 lidocaine 2% PF (XYLOCAINE) injection Given 01/27/2018 2:36 PM CDT 60 mg Intravenous, Starting on Thu01/27/18 at 1436, Until Thu01/27/18 at 1516 midazolam (aka VERSED) injection Given 01/27/2018 2:35 PM CDT 2 mg Intravenous, Starting on Thu01/27/18 at 1435 propofol (aka diPRIvan) Started 01/27/2018 2:40 PM 75 mcg/kg/min 5 0.22 mL/hr injection CDT Intravenous, Starting on Thu01/27/18 at 1440 documented in this encounter Care Teams Chemical Treatment Plant Technician Relationship Specialty Start Date End Date Colette Verma PA-C PCP - General Physician Medical Technologist Generalist 01/19/18 [address] [place] [address] documented as of this encounter
--- OUTSIDE RECORDS SUMMARY | 2022-04-24 07:34 | XMS_ITS | Encounter Summary ---
:1955 Author Organization [facility] Address [address] [place] [address] Care Team Providers Name Role Phone Unavailable Primary Care Provider Unavailable Encounter Details Date Type Department Care Team Description 04/21/2018 Hospital Encounter Department of [facility] Drug Screen Laboratory Medicine, S, SUPPORT COORDINATOR, C.N.P., [facility], [place] [address] [place] [address] [place] [address] [phone] (Wo rk) Social History Tobacco Use Types Packs/Day Years Used Date Smoking Tobacco: Never Assessed Sex Assigned at Date Recorded Not on file documented as of this encounter Plan of Treatment Not on filedocumented as of this encounter Visit Diagnoses Diagnosis Drug Screen documented in this encounter
--- OUTSIDE RECORDS SUMMARY | 2022-04-24 07:34 | XMS_ITS | Encounter Summary ---
:1955 Author Organization [facility] Address [address] [place] [address] Care Team Providers Name Role Phone Bayron Colette Pagan PA-C Primary Care Provider Encounter Details Date Type Department Care Team Description 01/27/2018 Surgery [facility] Pablito Luque MD RIGHT knee arthroscopy [address] [facility] Driv e [address] [facility] [address] partial medial [place], [place] [address] [place], [place] meniscectomy, [address] chondroplasty [phone] (Wo rk) Social History Tobacco Use Types Packs/Day Years Used Date Smoking Tobacco: Former Cigarettes Quit : 01/25/2015 Smokeless Tobacco: Never Alcohol Use Standard Drinks/Week Comments Yes 0 (1 standard drink = 0.6 oz pure alcoho l) rare Sex Assigned at Date Recorded Not on file documented as of this encounter Last Filed Vital Signs Vital Sign Reading Time Taken Comments Blood Pressure 144/66 01/27/2018 1:00 PM CDT Pulse 72 01/27/2018 1:00 PM CDT Temperature 36.9 ??C (98.4 ??F) 01/27/2018 1:00 PM CDT Respiratory Rate 18 01/27/2018 1:00 PM CDT Oxygen Saturation 96% 01/27/2018 1:00 PM CDT Inhaled Oxygen Concentration - - Weight 111.6 kg (246 lb) 01/27/2018 1:00 PM CDT Height 163.8 cm (5' 4.49) 01/27/2018 1:00 PM CDT Body Mass Index 41.59 01/27/2018 1:00 PM CDT documented in this encounter Medications at Time of Discharge Medication Sig Dispensed Refills Start Date End Date Adalimumab (HUMIRA) 40 1 shot twice a month 0 MG/0.4ML PSKT aspirin, enteric-coated Take 81 mg by mouth 0 81 MG enteric coated daily. tablet nystatin (MYCOSTATIN) Apply to rash under 60 g 5 01/25 316329 UNIT/GM breasts bid prn creamIndications: Edwige infection of flexural skin amLODIPine (NORVASC) 5 MG Take 5 mg by mouth 0 02/15/2018 tablet daily. HYDROcodone-acetaminophen Take 1 Tablet by 20 Tablet 0 08/0 06/201702/15/2018 (NORCO) 5-325 MG tablet mouth every 4 hours as needed. metFORMIN (GLUCOPHAGE) Take 1,000 mg by 0 02/15/2018 1000 MG tablet mouth two times a day with meals. omeprazole (PRILOSEC) 20 Take 20 mg by mouth 0 02/15/2018 MG capsule daily. Take 1 hour before a meal. rosuvastatin (CRESTOR) 10 Take 10 mg by mouth 0 02/15/2018 MG tablet daily. documented as of this encounter Procedure Notes Pablito Luque MD - 01/27/2018 12:00 PM CDT NAME: ADEOLA HECTOR MR#: [id number] CSN: [id number] AUTHENTICATING CLINICIAN: Pablito Luque MD CONFIRM #: [id number] LOC: 725 OPERATIVE REPORT DATE OF OPERATION: 01/27/2018 : 1955 SURGEON: Pabilto Luque MD PREOPERATIVE DIAGNOSIS: Right knee medial meniscus tear. POSTOPERATIVE DIAGNOSIS: Right knee medial meniscus tear along with chondromalacia of the patella, trochlea, and medial femoral condyle. FIRST DIGITAL PROOFING AND PLATEMAKER: Va Crabtree PA-C ANESTHESIA: Spinal and local. ESTIMATED BLOOD LOSS: Per the anesthesia record. IV FLUIDS: Per the anesthesia record. TOURNIQUET: Tourniquet was placed but not inflated. COMPLICATIONS: None. IMPLANTS: None. BRIEF HPI: The patient is an otherwise healthy 62-year-old female who had progressively worsening medial-sided right knee pain with associated swelling and mechanical symptoms. She failed extensive conservative treatment, and eventually an MRI was obtained. MRI showed evidence of a medial meniscus tear and some mild chondromalacia. Risks and benefits of both nonoperative and operative management were discussed,and she elected to proceed with surgical intervention. DESCRIPTION OF PROCEDURE: Patient was identified in the preoperative holding area, and the right knee was marked. History, physical exam, radiographs, and laboratory values were reviewed. After informed consent was obtained sparkle gram of Ancef antibiotics given prophylactically, she was brought to the operating room. She was placed on the operating room table in a supine position, and spinal anesthesia was administered. An exam under anesthesia demonstrated full range of motion of the knee, and the skin was intact. At this point, a well-padded tourniquet was placed high on the right thigh, leg was placed in an arthroscopic legholder and prepped and draped in the usual sterile fashion. After a [id number], a standard superolateral, inferolateral, and inferomedial portals were established and the knee joint was explored. The articular cartilage of the patella and trochlear groove showed some diffuse grade 2 and early grade 3 chondromalacic changes. This was debrided back to st able tissue with a full-radius shaver. The suprapatellar pouch, medial and lateral gutters were entered, and there was no synovitis or loose bodies noted. The medial compartment was entered. The articular cartilage of the medial femoral condyle and medialtibial plateau was largely intact. There was a small area of chondromalacia on the central weightbearing portion of the medial femoral condyle, and this was debrided back to stable tissue with a full-radius shaver. The medial meniscus was then probed, and there was a radial tear with a horizontal oblique component and a moderate-size flap component measuring about a 1.75 cm in length. This involved the white-white and red-white zones. This was unstable and not felt to be repairable, and an upbiting basket and full-radius shaver were used to debride this back to stable tissue. The remaining meniscus was probed and stable. The notch was explored, and the ACL and PCL were within normal limits. The lateral compartment was entered. The articular cartilage of the lateral femoral condyle and lateral tibial plateau was within normal limits. The lateral meniscus was probed and stable. At this point, all fluid and soft tissue was suctioned out of the knee joint, 30 mL of 0.5% ropivacaine was injected into the knee joint for postoperative pain control, and simple 3-0 nylon sutures were used to close the skin incisions. A sterile compressive dressing was placed over the knee joint itself. The patient was then awakened from the anesthetic and brought to the recovery room in stable condition. All sponge and needle counts were correct according to the nursing staff. KJA:MEDQ C: R:02/01/18 11:43 CONFIRM#:[id number] documented in this encounter Plan of Treatment Not on filedocumented as of this encounter Procedures Procedure Name Priority Date/Time Associated Diagnosis Comme nts ARTHROSCOPIC MENISCECTOMY 01/27/2018 2:34 PM Right kne e pain KNEE CDT documented in this encounter Visit Diagnoses Diagnosis Right knee pain Pain in joint, lower leg documented in this encounter Administered Medications Inactive Administered Medications - up to 3 most recent administrations Medication Order MAR Action Action Date Dose Rate Site dextrose (D50) injection 25 g 25 g, Intravenous, PRN BASED ON BLOOD ANN GAR, Blood Sugar <, Starting on Thu01/27/18 at 1338, PACU & Post-op ropivacaine (NAROPIN) injection Given 01/27/2018 3:02 PM CDT 30 mL Right Knee ONCE PRN, Starting on Thu01/27/18 at 1502, Until Thu01/27/18 at 1925, Intra-op documented in this encounter Active and Recently Administered Medications Times are shown in CDT. Scheduled Medication Order 01/25/2018 01/26/2018 01/27/2018 ceFAZolin (aka ANCEF) 2 g in dextrose 100 ml IVPB (COMPLETED) 1435 (Given - Provider: Margaux Thornton APRN, ZIPPER SETTER LOCKSTITCH) 2 g, Intravenous, Administer over 30 Min utes, ONCE, On Thu01/27/18 at 1400, For 1 dose, Infuse within 60 minutes prior to incision; Re-dose 1 gram IV every 4 hours after initial dose until incision closed., Pre-op chloroprocaine (NESACAINE) 3 % injection 2 mL 1400 (Due) 2 mL, Regional Nerve Block, ONCE, Thu01/27/18 at 1400, For 1 dose , Pre-op PRN Medication Order 01/25/2018 01/26/2018 01/27/2018 dextrose (D50) injection 25 g 25 g, Intravenous, PRN BASED ON BLOOD ANN GAR, Blood Sugar <, Starting Thu01/27/18 at 1338, PACU & Post-op ropivacaine (NAROPIN) injection 1502 (Given - Provider: Va Crabtree PA-C) ONCE PRN, Starting Thu01/27/18 at 1502, Intra-op documented in this encounter Care Teams Bartacker Relationship Specialty Start Date End Date Colette Verma PA-C PCP - General Physician Highway Administrative Engineer 01/19/18 [address] [place] [address] documented as of this encounter
--- OUTSIDE RECORDS SUMMARY | 2022-04-24 07:34 | XMS_ITS | Encounter Summary ---
:1955 Author Organization [facility] Address [address] [place] [address] Care Team Providers Name Role Phone Colette Verma PA-C Primary Care Provider Reason for Visit Reason Comments LAB RESULTS Encounter Details Date Type Department Care Team Description 01/26/2018 Telephone [facility] Colette Romero PA-C LAB RESULTS [id number] [address] [place] [address] [place], [place] [phone] (Wo rk) Social History Tobacco Use Types Packs/Day Years Used Date Smoking Tobacco: Former Cigarettes Quit : 01/25/2015 Smokeless Tobacco: Never Alcohol Use Standard Drinks/Week Comments Yes 0 (1 standard drink = 0.6 oz pure alcoho l) rare Sex Assigned at Date Recorded Not on file documented as of this encounter Nursing Notes Savanna Caruso CMA - 01/26/2018 1:23 PM CDT Spoke with patient informed her of message below. Nothing else needed. No further questions. Savanna Caruso CMA - 01/26/2018 1:23 PM CDT ----- Message from Colette Verma PA-C sent at 01/26/2018 11:04 AM CDT ----- Please call pt and let her know her labs look fine for surgery tomorrow, thanks. Colette documented in this encounter Plan of Treatment Not on filedocumented as of this encounter Visit Diagnoses Not on filedocumented in this encounter Care Teams Licensed Practical Nurse Clinic Nurse Relationship Specialty Start Date End Date Colette Verma PA-C PCP - General Physician Concrete Pourer 01/19/18 [address] [place] [address] documented as of this encounter
--- OUTSIDE RECORDS SUMMARY | 2022-04-24 07:34 | XMS_ITS | Encounter Summary ---
:1955 Author Organization [facility] Address [address] [place] [address] Care Team Providers Name Role Phone Colette Verma PA-C Primary Care Provider Reason for Visit Reason Comments QUESTIONS, GENERAL work comp paperwork Encounter Details Date Type Department Care Team Description 06/09/2018 Telephone [facility] Pablito Luque MD QUESTIONS, GENERAL CENTER [address] [place] [address] (work comp paperwork) [address] [place], [place] [phone] (Wo rk) Social History Tobacco Use Types Packs/Day Years Used Date Smoking Tobacco: Former Cigarettes Quit : 01/25/2015 Smokeless Tobacco: Never Alcohol Use Standard Drinks/Week Comments Yes 0 (1 standard drink = 0.6 oz pure alcoho l) rare Sex Assigned at Date Recorded Not on file documented as of this encounter Nursing Notes Va Ferrera RN - 06/09/2018 3:02 PM CST Pt of Rebel status-post??right knee arthroscopy, partial medial meniscectomy and chondroplasty??completed on 01/27/2018??. Last OV 05/11. Sumanth from [employer] is requesting for Dr. Luque to fill out a form that was originally sent 05/24 and fax back. Paperwork was faxed here and sent to [employer]. Claim # [id number] Fax completed form to [phone] N[facility]OX documented in this encounter Plan of Treatment Not on filedocumented as of this encounter Visit Diagnoses Not on filedocumented in this encounter Care Teams Plasma Specialist Relationship Specialty Start Date End Date Colette Verma PADebiC PCP - General Physician Pet Resort Concierge 01/19/18 [address] [place] [address] documented as of this encounter
--- OUTSIDE RECORDS SUMMARY | 2022-04-24 07:34 | XMS_ITS | Encounter Summary ---
:1955 Author Organization [facility] Address [address] [place] [address] Care Team Providers Name Role Phone Unavailable Primary Care Provider Unavailable Encounter Details Date Type Department Care Team Description 08/03/2020 Immunization Urgent Care, [facility] Rolando Cevallos En counter For COVID-19 [place], in [place] Deras M.D. Vaccine Immunization [place], [place] [address] [place] [phone] Social History Tobacco Use Types Packs/Day Years Used Date Smoking Tobacco: Never Assessed Sex Assigned at Date Recorded Not on file documented as of this encounter Plan of Treatment Not on filedocumented as of this encounter Visit Diagnoses Diagnosis Encounter For COVID-19 Vaccine Immunizat ion documented in this encounter
--- OUTSIDE RECORDS SUMMARY | 2022-04-24 07:34 | XMS_ITS ---
:1955 Author Care Team Providers Name Role Phone ElizabethleighannDaniel Primary Care Provider Unavailable Allergies Code Code System Name Reaction Severity Status Onset 20301203 RxNorm Keflex Diarrhea ? Active ? Medications Name Status Start Date Stop Date ? ? betamethasone, augmented 0.05 % topical cream Active ? Not available APPLY TO BOTH LOWER LEGS TWO TIMES A DA Y FOR 2-3 WEEKS, THEN TWICE DAILY NEEDED FOR FLARES cefuroxime axetil 500 mg tablet Active ? Not available Take 1 tablet every 12 hours by oral route for 7 days. celecoxib 200 mg capsule Completed ? 022 TAKE ONE CAPSULE BY MOUTH ONCE DAILY Contour Next One Meter Active ? Not avail able USE DIRECTED ONCE DAILY Contour Next Test Strips Active ? Not mateus ilable USE DIRECTED ONCE DAILY glipizide ER 10 mg tablet, extended release 24 hr Active ? Not available TAKE ONE TABLET BY MOUTH ONCE DAILY glipizide ER 5 mg tablet, extended release 24 hr Completed ? 04/14/2022 TAKE ONE TABLET BY MOUTH ONCE DAILY Januvia 100 mg tablet Completed ? 04/14/2022 TAKE ONE TABLET BY MOUTH ONCE DAILY ketoconazole 2 % topical cream Completed ? 1 APPLY TO THE LOWER ABDOMEN ONCE DAILY losartan 25 mg tablet Active ? Not availa ble metformin 1,000 mg tablet Active ? Not av ailable TAKE ONE TABLET BY MOUTH TWICE A DAY WITH MEALS omeprazole 20 mg capsule,delayed release Active ? Not available TAKE ONE CAPSULE BY MOUTH ONCE DAILY rosuvastatin 10 mg tablet Active ? Not av ailable Skyrizi 150 mg/1.66 mL(75 mg/0.83 mL x 2) subcutaneous syringe k it Active ? Not available Inject by subcutaneous route. sulfamethoxazole 800 mg-trimethoprim 160 mg tablet Completed ? 04/14/2022 TAKE ONE TABLET BY MOUTH TWICE A DAY triamcinolone acetonide 0.025 % topical cream Completed ? 04/14/2022 APPLY TOPICAL ROUTE TO THE EAR TWO TIME S A DAY FOR 2-3 WEEKS , THEN 2 DAYS A WEEK AFTER. Problems None recorded. Procedures Date Name Performed by ? ? Transurethral Resection of Neoplasm of I nformation not available Bladder 04/14/2022 CT, Urogram [facility] Radiology Department [address] [place], [place] [id number] (Work Place) Results Lab Results Date Name Specimen Result Interpretation Description Value Range Status Address ? 04/14/2022 Culture, UR ABNORMAL Final microbiology ? Fin saul [place] Urine Report results [facility] [place]: [address] [facility] [address], [place] 04/14/2022 Urinalysis, ? Color-S Yellow ? ? [facility]: Dipstick tatus [address], [place] ? ? ? pH-Stat 6.0 ? ? [facility] : us [address], [place] ? ? ? Nitrate negative ? ? [facility]: s-Status [address], [place] ? ? ? Blood-S Trace ? ? [facility] : tatus [address], [place] ? ? ? Leuko-S Moderate ? ? [facility]: tatus [address], [place] Past Encounters 04/14/2022 History of Malignant Neoplasm of Bladder ; Microscopic Hematuria Daniel Pires MD: [address], [place] [address], Ph. Social History Tobacco Smoking Status Former Smoker Vaccine List Vaccine Type pneumococcal polysaccharide PPV23 09/28/2020 Plan of Care Reminders Provider Appointments None recorded. ? ? Lab None recorded. ? ? Referral None recorded. ? ? Procedures None recorded. ? ? Surgeries None recorded. ? ? Imaging None recorded. ? ? Vitals Height Weight 5 ft 4 in 239 lbs
--- OUTSIDE RECORDS SUMMARY | 2022-04-24 07:34 | XMS_ITS | Encounter Summary ---
:1955 Author Organization [facility] Address [address] [place] [address] Care Team Providers Name Role Phone Unassigned, Provider Primary Care Provider Unavailable Reason for Visit Reason Comments Knee Pain or Injury right Encounter Details Date Type Department Care Team Description 01/05/2018 Office Visit [facility] Pablito Luque MD Tear of medial meniscus of right knee, u nspecified tear type, unspecified whether old or current tear, initial encounter (Primary Dx); [address] Chondromalacia, right knee [address] [place], [place] [address] [phone] (Wo rk) Social History Tobacco Use Types Packs/Day Years Used Date Smoking Tobacco: Never Smokeless Tobacco: Never Sex Assigned at Date Recorded Not on file documented as of this encounter Last Filed Vital Signs Vital Sign Reading Time Taken Comments Blood Pressure - - Pulse - - Temperature - - Respiratory Rate - - Oxygen Saturation - - Inhaled Oxygen Concentration - - Weight 112 kg (247 lb) 01/05/2018 2:41 PM CDT Height 162.6 cm (5' 4) 01/05/2018 2:41 PM CDT Body Mass Index 42.4 01/05/2018 2:41 PM CDT documented in this encounter Progress Notes Pablito Luque MD - 01/05/2018 3:00 PM CDT [facility] Consult[facility] 01/05/2018 Chief Complaint: Right knee pain History of Present Illness: Adeola Hector is a 62 y.o. female worker's compensation patient who presents for evaluation of right knee pain. 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 She notes that she has been limping and is unable to walk well. She localizes her pain to the medial compartment of her knee. Her pain is made worse with weight bearing. She wasoriginally seen at a [facility] in [place]. Since she has recently moved to the [facility], so she no longer works for the job she was injured at and is set to have a new job here in the [facility]. The intake sheet was reviewed with the patient. This was up-to-date including medications, past surgical history and social history, as well as risk factors, complete review of systems and family health history and scanned into electronic medical record. Physical Exam: 1.626 m (5' 4) 112 kg (247 lb) General: Pleasant 62 y.o. female in no acute distress. Appropriate affect. Alert and oriented x 3. Walks with a non-antalgic gait. Musculoskeletal: Lumbosacral range of motion is full and pain-free. Neurovascular: Neurovascularly intact distally. Skin: No erythema, ecchymosis, atrophy, or effusion. Right Knee: No crepitation in the patellofemoral joint. Range of motion is 0-130 degrees. Mildly positive Cliff's for the medial compartment. Negative Cliff's for the lateral compartment. Ligamentously stable to varus and valgus loading testing. Negative anterior drawer, posterior drawer, Sonny's and pivot shift tests. Imaging: MRI of the right knee - Performed at an outs (12/07/17): 1. Medial meniscal tear. 2. Inflammation of the MCL. 3. Mild medial compartment arthritis. 4. Mild lateral and patellofemoral chondromalacia. 5. Trace effusion. Reading per radiology. I independently reviewed and interpreted the imaging studies above; the results were discussed with the patient. Assessment: Diagnosis and Associated Orders ICD-10-CM 1. Tear of medial meniscus of right knee, unspecified tear type, unspecified whether old or current tear, initial encounter S83.241A 2. Chondromalacia, right knee M94.261 mild Plan: We had a detailed discussion about the implications of the diagnosis, as well as possible treatment options. At this time her work restrictions will remain unchanged. Risks and benefits of both nonoperative and operative management were discussed. Risks of surgery were discussed. These included but were not limited to risks of bleeding, infection, possible injury to vessels and nerves, possible incomplete pain relief, and possible need for future surgery. We also discussed the possibility of partialmeniscectomy versus meniscal repair and the anatomy behind that decision intraoperatively. Patient verbalized understanding and wished to proceed with surgery. All of her questions were answered. Scribe Disclosure: Michael Haynes, am serving as a scribe to document services personally performed by Pablito Luque MD at this visit, based upon the provider's statements to me. All documentation has been reviewed by the aforementioned provider prior to being entered into the official medical record. Portions of this medical record were completed by a scribe. UPON MY REVIEW AND AUTHENTICATION BY ELECTRONIC SIGNATURE, this confirms (a) I performed the applicable clinical services, and (b) the recordis accurate. Pablito Luque MD documented in this encounter Plan of Treatment Not on filedocumented as of this encounter Visit Diagnoses Diagnosis Tear of medial meniscus of right knee, u nspecified tear type, unspecified whether old or current tear, initial encounter - Miladis amandeep Chondromalacia, right knee documented in this encounter Care Teams Visual Journalist Relationship Specialty Start Date End Date Unassigned, Provider PCP - General 08/30/00 01/18/[address] [place] [address] documented as of this encounter
--- OUTSIDE RECORDS SUMMARY | 2022-04-24 07:34 | XMS_ITS | Encounter Summary ---
:1955 Author Organization [facility] Address [address] [place] [address] Care Team Providers Name Role Phone Colette Verma PA-C Primary Care Provider Reason for Visit Reason Onset Date Comments Refill 05/13/2018 Encounter Details Date Type Department Care Team Description [facility] [facility] Ref[facility] [address] [address] [place] [address] [place], [place] [phone] (Wo rk) Social History Tobacco Use Types Packs/Day Years Used Date Smoking Tobacco: Former Cigarettes Quit : 01/25/2015 Smokeless Tobacco: Never Alcohol Use Standard Drinks/Week Comments Yes 0 (1 standard drink = 0.6 oz pure alcoho l) rare Sex Assigned at Date Recorded Not on file documented as of this encounter Nursing Notes Tammie Cornejo RN - 05/13/2018 2:47 PM CST Resent BROKER Geetha Martinez - 05/13/2018 1:58 PM CST Further assistance needed to complete refill request Reason: Clarification for medication regimen needed. Pharmacy asking for MORE specific directions, for insurance billing purposes. Next Steps: Triage to complete refill as appropriate. CURRENT PRESCRIPTION: Drug Name/Strength: One Touch Verio Test Strips Sig: Use to test daily [facility] PH: [phone] BROKER documented in this encounter Plan of Treatment Not on filedocumented as of this encounter Visit Diagnoses Not on filedocumented in this encounter Care Teams Neighborhood Worker Relationship Specialty Start Date End Date Colette Verma PADebiC PCP - General Physician Comic Book Artist 01/19/18 [address] [place] [address] documented as of this encounter
--- OUTSIDE RECORDS SUMMARY | 2022-04-24 07:34 | XMS_ITS | Encounter Summary ---
:1955 Author Organization [facility] Address [address], [place] [address] Care Team Providers Name Role Phone Bayron Colette Pagan PA-C Primary Care Provider Reason for Visit Reason Comments Knee Pain or Injury right Encounter Details Date Type Department Care Team Description 05/11/2018 Office Visit [facility] Pablito Luque MD S/P arthroscopic partial medial meniscec ej (Primary Dx); CENTER [address] [place] [address] [facility] [address] [place], [place] [address] [phone] (Wo rk) Social History Tobacco Use Types Packs/Day Years Used Date Smoking Tobacco: Former Cigarettes Quit : 01/25/2015 Smokeless Tobacco: Never Alcohol Use Standard Drinks/Week Comments Yes 0 (1 standard drink = 0.6 oz pure alcoho l) rare Sex Assigned at Date Recorded Not on file documented as of this encounter Patient Instructions Patient InstructionsFátima Forbes, ATC - 05/11/2018 11:[address] Pablito Luque MD Orthopaedic Surgeon Designer Architect: Karis Zaragoza Please contact Karis for all administrative questions at [phone] Physician Contract Officer: Va Crabtree PA-C Nurse: Randi Schultz Please contact Randi for any medical questions at [phone] Medication Requests: Prescriptions are not filled on Weekends or on Weekdays after 3:00PM For all medication refills: Request a refill using [employer] or contact your Pharmacy ERN ROOM WORKING SUPERVISOR documented in this encounter Progress Notes Pablito Luque MD - 05/11/2018 11:00 AM CST Orthopaedic Surgery Postoperative Follow-Up 05/11/2018 History of Present Illness: Adeola Hector is a 62 y.o. female worker's compensation patient, 3 months status- post right knee arthroscopy, partial medial meniscectomy and chondroplasty completed on 01/27/2018 who presents today forpostoperative follow-up. I last evaluated this patient on 03/09/18, at which time she reported to bedoin well postoperatively. Noted occasional shooting right knee pain, and some difficulty with stairs due to soreness. It was recommended that she continue with physical therapy, transitioning to a home therapy program with instruction from the therapist. Workability form provided for sedentary work.Today, she reports mild pain with extension. Denies swelling or signs of infection. Denies any new or worsening symptoms. Physical Exam: General: Pleasant 62 y.o. female in no acute distress. Appropriate affect. Alert and oriented x 3. Walks with a non-antalgic gait. Neurovascular: Neurovascularly intact distally. Skin: Well-healed incisions. Right Knee: Full extension. 115 degrees of flexion. No medial or lateral joint line tenderness. Assessment: Diagnosis and Associated Orders ICD-10-CM 1. S/P arthroscopic partial medial meniscectomy Z98.890 right knee with chondroplasty 2. Follow-up examination after orthopedic surgery Z09 Plan: I am pleased with this patient's progress postoperatively. Continue with home therapy exercises and symptomatic management as needed. Patient is at [facility]. Workability forms provided. Released without restrictions. Follow-up as needed. Can call for a visco or steroid injection in the future. Scribe Disclosure: I, Arcadio Prado, am serving as a scribe to document [...] (b) the recordis accurate. Pablito Luque MD ERN ROOM WORKING SUPERVISOR documented in this encounter Plan of Treatment Not on filedocumented as of this encounter Visit Diagnoses Diagnosis S/P arthroscopic partial medial meniscec ej - Primary Follow-up examination after orthopedic s urgery Follow-up examination, following other s urgery documented in this encounter Care Teams Pipeline Systems Operator Relationship Specialty Start Date End Date Colette Verma PA-C PCP - General Physician Contract Officer 01/19/18 [address] [place] [address] documented as of this encounter
--- OUTSIDE RECORDS SUMMARY | 2022-04-24 07:34 | XMS_ITS | Encounter Summary ---
:1955 Author Organization [facility] Address [address] [place] [address] Care Team Providers Name Role Phone Colette Verma PA-C Primary Care Provider Encounter Details Date Type Department Care Team Description 02/15/2018 Lab Visit [facility] Type 2 diabetes mellitus [id number] without complication, [place] [address] without long-term current [phone] use of insulin (HRC) Social History Tobacco Use Types Packs/Day Years [...] Name Priority Date/Time Associated Diagnosis Comme nts ALBUMIN/CREAT RATIO Routine 02/15/2018 2:40 PM Type 2 diabetes Results for this CDT mellitus without procedure a re in complication, the results without long-term section. current use of insulin (HRC) documented in this encounter Results Microalb/Creat Ratio (02/15/2018 2:40 PM CDT) P athologist Signature Microalbumin 29.7 mg/L PN SOFT Urine U Creat Random 121 mg/dL PN SOFT Microalbumin/Crea 24.5 0.0 - 30.0 PN SOFT tinine Ratio Specimen Anatomical Collection Method Collection Time Receive d Time (Source) Location / / Volume Laterality Urine specimen 02/15/2018 2:40 PM 018 4:52 (specimen) CDT PM CDT Narrative ELISEO MARINO - 02/15/2018 5:49 PM CDT Performed at [facility] ([facility] [address] [facility], [place] [address] CLIA number [id number] Colette Verma PA-C LAB_1 Performing Organization Address City/State/ZIP Code Phon e Number PN SOFT [address] [place] [address] documented in this encounter Visit Diagnoses Diagnosis Type 2 diabetes mellitus without complic ation, without long-term current use of insulin (HRC) documented in this encounter Care Teams Adult Services Librarian Relationship Specialty Start Date End Date Colette Verma PA-C PCP - General Physician News Camera Person 01/19/18 [address] [place] [address] documented as of this encounter
--- OUTSIDE RECORDS SUMMARY | 2022-04-24 07:34 | XMS_ITS | Encounter Summary ---
:1955 Author Organization [facility] Address [address] [place] [address] Care Team Providers Name Role Phone Colette Verma PA-C Primary Care Provider Reason for Referral Procedure/Equipment (Routine) - Incomplete Specialty Diagnoses / Procedures Referred By Contact Refer red To Contact Diagnoses Surgery, elective Pablito Luque MD Procedures YASMEEN Arthroscopy Knee Rt [address] [place] [address] Referral ID Status Reason Start Date Expiration Date Visits V isits Requested Authorized [id number] Incomplete 01/25/2018 04/26/2019 1 1 Encounter Details Date Type Department Care Team Description 01/25/2018 Notes/Orders [facility] Pablito Luque MD Surgery, elective CENTER [address] [place] [address] (Primary Dx) [address] [place], [place] [address] [phone] (Wo rk) Social History Tobacco Use Types Packs/Day Years Used Date Smoking Tobacco: Former Cigarettes Quit : 01/25/2015 Smokeless Tobacco: Never Alcohol Use Standard Drinks/Week Comments Yes 0 (1 standard drink = 0.6 oz pure alcoho l) rare Sex Assigned at Date Recorded Not on file documented as of this encounter Plan of Treatment Not on filedocumented as of this encounter Results YASMEEN Arthroscopy Knee Rt (01/27/2018 12:05 PM CDT) Anatomical Region Laterality Modality Lower Extremity, Knee Endoscopy Specimen (Source) Anatomical Location Collection Method / Collectio n Time Received Time / Laterality Volume Pablito Luque MD RAD NON-REPORTABLES documented in this encounter Visit Diagnoses Diagnosis Surgery, elective - Primary Unspecified elective surgery for purpose s other than remedying health states documented in this encounter Care Teams Legal Clerk Relationship Specialty Start Date End Date Colette Verma PA-C PCP - General Physician Fisheries Officer 01/19/18 [address] [place] [address] documented as of this encounter
--- OUTSIDE RECORDS SUMMARY | 2022-04-24 07:34 | XMS_ITS | Encounter Summary ---
:1955 Author Organization [facility] Address [address] [place] [address] Care Team Providers Name Role Phone Unavailable Primary Care Provider Unavailable Encounter Details Date Type Department Care Team Description 02/12/2021 Orders Only [facility] PCP TH Sa pat Maldonado M.D. [address] [place], [place] [phone] (Wo rk) Social History Tobacco Use Types Packs/Day Years Used Date Smoking Tobacco: Never Assessed Sex Assigned at Date Recorded Not on file documented as of this encounter Plan of Treatment Not on filedocumented as of this encounter Visit Diagnoses Not on filedocumented in this encounter
--- OUTSIDE RECORDS SUMMARY | 2022-04-24 07:34 | XMS_ITS | Encounter Summary ---
:1955 Author Organization [facility] Address [address] [place] [address] Care Team Providers Name Role Phone Colette Verma PA-C Primary Care Provider Encounter Details Date Type Department Care Team Description 01/25/2018 Lab Visit [facility] Preoperative examination; [id number] [address] Type 2 diabetes mellitus wit hout complication, without long-term current use of insulin (HRC) [place] [address] Social History Tobacco Use Types Packs/Day Years Used Date Smoking Tobacco: Former Cigarettes Quit : 01/25/2015 Smokeless Tobacco: Never Alcohol Use Standard Drinks/Week Comments Yes 0 (1 standard drink = 0.6 oz pure alcoho l) rare Sex Assigned at Date Recorded Not on file documented as of this encounter Progress Notes Colette Verma PA-C - 01/26/2018 11:04 AM CDT Please call pt and let her know her labs look fine for surgery tomorrow, thanks. Colette documented in this encounter Plan of Treatment Not on filedocumented as of this encounter Procedures Procedure Name Priority Date/Time Associated Diagnosis Comme nts COMP METABOLIC Routine 01/25/2018 2:25 PM Type 2 diabetes Resu lts for this PANEL CDT mellitus without procedure a re in complication, without the re sults long-term current use sectio n. of insulin (HRC) COMPLETE BLOOD Routine 01/25/2018 2:25 PM Preoperative Results for this COUNT-NO DIFF CDT examination procedure are in the results section. HGB A1C Routine 01/25/2018 2:25 PM Type 2 diabetes Result s for this CDT mellitus without procedure a re in complication, without the re sults long-term current use sectio n. of insulin (HRC) documented in this encounter Results (ABNORMAL) Hgb A1c (01/25/2018 2:25 PM CDT) athologist Signature HGB A1C 7.1 (H) 4.0 - 5.6 % PN SOFT Specimen Anatomical Collection Method Collection Time Receive d Time (Source) Location / / Volume Laterality 01/25/2018 2:25 PM 8 6:21 CDT PM CDT Narrative PN SOFT - 01/25/2018 11:00 PM CDT Performed at [facility], [facility] [place] [address] CLIA number [id number] Colette Verma PA-C LAB_1 Performing Organization Address City/State/ZIP Code Phon e Number PN SOFT [address] [place] [phone] (ABNORMAL) Comp Metabolic Panel (01/25/2018 2:25 PM CDT) [facility] gist Method Time Signature Aspartate 33 10 - 40 PN SOFT Aminotransferase U/L Lab Glucose 108 (H) 70 - 100 PN SOFT mg/dL Comment: The stated glucose range is for the fast ing state. Non-fasting glucose range is 70-180 mg/d L Bilirubin Total 0.9 0.2 - 1.2 mg/dL PN SOFT Calcium 9.9 8.4 - 10.4 mg/dL PN SOFT Sodium 139 136 - 145 mmol/L PN SOFT Potassium 4.4 3.5 - 5.2 mmol/L PN SOFT Blood Urea Nitrogen 19 9 - 26 mg/dL PN SOFT Albumin 4.0 3.4 - 5.0 g/dL PN SOFT Chloride 102 98 - 109 mmol/L PN SOFT Alk Phos 80 40 - 150 U/L PN SOFT Protein Total, Serum 8.1 6.4 - 8.3 g/dL PN S OFT Creatinine Serum 0.70 0.55 - 1.02 mg/dL PN SO FT Est GFR Am >60 >60 mL/min/1.73m2 PN SOFT Est GFR Non-Afr Am >60 >60 mL/min/1.73m2 PN SOFT Comment: Normal>60, moderate decrease 30 - 59, se melo decrease 15 - 29, renal failure <15 mL/min/1.73 m2 NOTE: ??Choose the eGFR result above inge ropriate for the race of the patient. Alanine Aminotransferase 31 9 - 55 U/L PN S OFT CO2 26 22 - 31 mmol/L PN SOFT Specimen Anatomical Collection Method Collection Time Receive d Time (Source) Location / / Volume Laterality 01/25/2018 2:25 PM 8 4:51 CDT PM CDT Narrative PN SOFT - 01/25/2018 5:36 PM CDT Performed at [facility], [address] [place] [address] CLIA number [id number] Colette Verma PA-C LAB_1 Performing Organization Address [facility] Phon e Number PN SOFT [address] [place] [address] [phone] (ABNORMAL) Complete Blood Count-No Diff (01/25/2018 2:25 PM CDT) [facility] gist Method Time Signature White Blood Cell 8.9 3.8 - 11.0 PN SOFT Count k/cmm Red Blood Cell 5.38 (H) 3.70 - PN SOFT Count 5.20 m/cmm Hemoglobin 15.6 (H) 11.8 - PN SOFT 15.5 g/dL Hematocrit 46.4 (H) 35.0 - PN SOFT 46.0 % Mean Corpuscular 86.2 80.0 - PN SOFT Volume 100.0 fL RDW 13.7 11.0 - PN SOFT 15.0 % Platelet Count 236 140 - 450 PN SOFT k/cmm Specimen Anatomical Collection Method Collection Time Receive d Time (Source) Location / / Volume Laterality 01/25/2018 2:25 PM 8 2:25 CDT PM CDT Narrative PN SOFT - 01/25/2018 2:27 PM CDT Performed at [facility], [address] [place] [address] CLIA number [id number] Colette R Bayron PA-C LAB_1 Performing Organization Address City/State/ZIP Code Phon e Number PN SOFT [address] [place] [address] [phone] documented in this encounter Visit Diagnoses Diagnosis Preoperative examination Preoperative examination, unspecified Type 2 diabetes mellitus without complic ation, without long-term current use of insulin (HRC) documented in this encounter Care Teams Show Host/Hostess Relationship Specialty Start Date End Date Colette Verma PA-C PCP - General Physician Disability Counselor 01/19/18 [address] [place] [address] documented as of this encounter
--- OUTSIDE RECORDS SUMMARY | 2022-04-24 07:34 | XMS_ITS | Encounter Summary ---
:1955 Author Organization [facility] Address [address] [place] [address] Care Team Providers Name Role Phone Unavailable Primary Care Provider Unavailable Reason for Referral Specialty Diagnoses / Procedures Referred By Contact Refer red To Contact Trace Renee M.D. [facility] [address] [place] [address] Referral ID Status Reason Start Date Expiration Date Visits Requ ested Visits Authorized RER WHARF Encounter Details Date Type Department Care Team Description 06/29/2020 Orders Only [facility] PCP [facility] Trace Renee Jr., M.D. [address] [facility] [address] [place] [phone] (Wo rk) Social History Tobacco Use Types Packs/Day Years Used Date Smoking Tobacco: Never Assessed Sex Assigned at Date Recorded Not on file documented as of this encounter Plan of Treatment Scheduled Referrals Name Type Priority Associated Order Schedule Diagnoses Covid immunization Outpatient Referral Routine Ex pected: office visit Initial 021 (Approximate), Expires: 06/29/2021 documented as of this encounter Visit Diagnoses Not on filedocumented in this encounter
--- OUTSIDE RECORDS SUMMARY | 2022-04-24 07:34 | XMS_ITS | Encounter Summary ---
:1955 Author Organization [facility] Address [address] [place] [address] Care Team Providers Name Role Phone Colette Verma PA-C Primary Care Provider Encounter Details Date Type Department Care Team Description 01/27/2018 Hospital Encounter [facility] Pablito Luque MD [address] [facility] Ricardo e [address] [facility] [place], [place] [address] [place], [place] [phone] (Wo rk) Social History Tobacco Use Types Packs/Day Years Used Date Smoking Tobacco: Former Cigarettes Quit : 01/25/2015 Smokeless Tobacco: Never Alcohol Use Standard Drinks/Week Comments Yes 0 (1 standard drink = 0.6 oz pure alcoho l) rare Sex Assigned at Date Recorded Not on file documented as of this encounter Last Filed Vital Signs Vital Sign Reading Time Taken Comments Blood Pressure 104/44 01/27/2018 5:00 PM CDT Pulse 57 01/27/2018 5:00 PM CDT Temperature 36.1 ??C (97 ??F) [...] to rash under 60 g 5 01/25 702218 UNIT/GM breasts bid prn creamIndications: Edwige infection [...] 12:00 PM CDT NAME: ADEOLA HECTOR MR#: [id number] CSN: [id number] AUTHENTICATING CLINICIAN: Pablito Luque MD CONFIRM #: [id number] LOC: 725 OPERATIVE REPORT DATE OF OPERATION: 01/27/2018 : 1955 SURGEON: Pablito Luque MD PREOPERATIVE DIAGNOSIS: Right knee medial meniscus tear. POSTOPERATIVE DIAGNOSIS: Right knee medial meniscus tear along with chondromalacia of the patella, trochlea, and medial femoral condyle. FIRST COMPRESSOR SERVICE TECHNICIAN: Va Crabtree PA-C ANESTHESIA: Spinal and local. [...] in the usual sterile fashion. After a ognmv-plu-fpt-cause, a standard superolateral, inferolateral, and inferomedial portals [...] were correct according to the nursing staff. CONI:BECKY C: R:02/01/18 11:43 CONFIRM#:[id number] documented in this encounter Plan of Treatment Not on filedocumented as of this encounter Procedures Procedure Name Priority Date/Time Associated Diagnosis Comme nts ARTHROSCOPIC MENISCECTOMY 01/27/2018 2:34 PM Right kne e pain KNEE CDT documented in this encounter Visit Diagnoses Not on filedocumented [...] 1435 (Given - Provider: Margaux Thornton APRN, [employer]) 2 g, Intravenous, Administer over 30 Min [...] Intra-op documented in this encounter Care Teams Laundry Equipment Operator Relationship Specialty Start Date End Date Colette Verma PA-C PCP - General Physician Music Librarian 01/19/18 [address] [place] [address] documented as of this encounter
--- OUTSIDE RECORDS SUMMARY | 2022-04-24 07:34 | XMS_ITS | Encounter Summary ---
:1955 Author Organization [facility] Address [address] [place] [address] Care Team Providers Name Role Phone Colette Vemra PA-C Primary Care Provider Reason for Visit Reason Onset Date Comments Medication Questions 05/12/2018 Encounter Details Date Type Department Care Team Description 05/12/2018 Telephone [facility] Colette Verma, Medicat ion Questions Medicine [place] [address] [address] [address] [place], [place] [address] [phone] Social History Tobacco Use Types Packs/Day Years Used Date Smoking Tobacco: Former Cigarettes Quit : 01/25/2015 Smokeless Tobacco: Never Alcohol Use Standard Drinks/Week Comments Yes 0 (1 standard drink = 0.6 oz pure alcoho l) rare Sex Assigned at Date Recorded Not on file documented as of this encounter Nursing Notes Haritha Jaime RN - 05/12/2018 12:05 PM CST Called patient back to request which test strips she uses. States she moved to [place] the end of November. Has a One Touch Verio, is almost out of strips. Requested Prescriptions Signed Prescriptions Disp Refills ??? blood glucose (ONETOUCH VERIO) test strip 100 Strip 1 Sig: Use to test daily. Use as directed. Pharmacy dispense brand based on insurance. Authorizing Provider: COLETTE VERMA Ordering User: HARITHA JAIME OV 02/15/18 NING OPERATIONS SPECIALIST Mai Roman - 05/12/2018 10:12 AM CST Further assistance needed to complete refill request Reason: Clarification for medication regimen needed. Pharmacy asking for specific directions, for insurance billing purposes. Next Steps: Triage to complete refill as appropriate. CURRENT PRESCRIPTION: Drug Name/Strength: blood glucose test strip Sig: Use ??to test as needed for Blood Sugar >. Use as directed. Pharmacy dispense brand based oninsurance. NING OPERATIONS SPECIALIST documented in this encounter Plan of Treatment Not on filedocumented as of this encounter Visit Diagnoses Not on filedocumented in this encounter Care Teams Roastmaster Relationship Specialty Start Date End Date Colette Verma PA-C PCP - General Physician Strategic Planner 01/19/18 [address] [place] [address] documented as of this encounter
--- OUTSIDE RECORDS SUMMARY | 2022-04-24 07:34 | XMS_ITS | Encounter Summary ---
:1955 Author Organization [facility] Address [address] [place] [address] Care Team Providers Name Role Phone Colette Verma PA-C Primary Care Provider Reason for Referral Therapies (Routine) - Closed Specialty Diagnoses / Procedures Referred By Contact Refer red To Contact Diagnoses Right knee pain, unspecified chronicity Pablito Luque MD [address] [facility] [place] [address] Referral ID Status Reason Start Date Expiration Date Visits Requ ested Visits Authorized [id number] Closed 02/03/2018 04/04/2018 1 1 Scheduling Instructions If scheduling assistance is needed, ajit asher inquire with the medical office staff upon exiting your appointment or contact the ordering clinic for recommended locations. This recommended service/s may not be co nimco by your insurance coverage. To find out your specific benefit coverage, please c all the number on your insurance card. Reason for Visit Reason Comments QUESTIONS, GENERAL Encounter Details Date Type Department Care Team Description 02/03/2018 Telephone [facility] Pablito Luque MD QUESTIONS, GENERAL [address] [facility] [address] [place] [address] [place] [address] [place] [address] [phone] (Wo rk) Social History Tobacco Use Types Packs/Day Years Used Date Smoking Tobacco: Former Cigarettes Quit : 01/25/2015 Smokeless Tobacco: Never Alcohol Use Standard Drinks/Week Comments Yes 0 (1 standard drink = 0.6 oz pure alcoho l) rare Sex Assigned at Date Recorded Not on file documented as of this encounter Nursing Notes Kacie Connelly RN - 02/03/2018 12:34 PM CDT Valerie Valdez, nurse correctional case records supervisor from [facility] called for operative report from 01/27/[address] Luque and for an outside order for PT so she can go closer to [employer]. Order placed, and op note from 01/27/18 and order faxed to Valerie at F#[phone]. documented in this encounter Plan of Treatment Scheduled Referrals Name Type Priority Associated Diagnoses Order S chedule Physical Therapy Referral Routine Right knee pain, unspeci fied Ordered: 02/03/2018 chronicity documented as of this encounter Visit Diagnoses Diagnosis Right knee pain, unspecified chronicity - Primary documented in this encounter Care Teams Gear Finisher Relationship Specialty Start Date End Date Colette Verma PA-C PCP - General Physician Dispensary Technician 01/19/18 [address] [place] [address] documented as of this encounter
--- OUTSIDE RECORDS SUMMARY | 2022-04-24 07:34 | XMS_ITS | Encounter Summary ---
:1955 Author Organization [facility] Address [address] [place] [address] Care Team Providers Name Role Phone Colette Verma PA-C Primary Care Provider Reason for Referral Consult/Transfer Care (Routine) - Closed Specialty Diagnoses / Procedures Referred By Contact Refer red To Contact Diagnoses Type 2 diabetes mellitus without complication, without long-term current use of insulin (HRC) Colette Verma PA-C [address] [place] [address] Referral ID Status Reason Start Date Expiration Date Visits Requ ested Visits Authorized [id number] Closed 02/15/2018 05/17/2019 1 1 Scheduling Instructions Your provider has recommended an appoint ment with Terri Conway. You may call [phone] to schedule your appoi ntment. If you do not schedule an appointment within the next 1 to 3 business days, we will call you to help arrange your appointment. We suggest you call your [employer] about your coverage and benefits for this appointment. Reason for Visit Reason Comments MEDICATION CHECK Encounter Details Date Type Department Care Team Description 02/15/2018 Office Visit Raf Gibson Colette Verma, Type 2 diabetes mellitus without complication, without long-term current use of insulin (HRC) (Primary Dx); Medicine PA-C Essential hypertension; [address] [address] [facility] Gastroesophageal reflux disease without esophagitis; [place], [place] Screen for ST D (sexually transmitted disease) [id number] [phone] Social History Tobacco Use Types Packs/Day Years [...] Pulse 76 02/15/2018 1:58 PM CDT Temperature - - Respiratory Rate - - Oxygen Saturation - - Inhaled Oxygen Concentration - - Weight - - Height - - Body Mass Index - - documented in this encounter Patient Instructions Patient InstructionsColette Verma PA-C - 02/15/2018 2:00 PM CDT Here is plan below: 1) Stop the Amlodipine 5mg tablet and start the Losartan 25mg tablet once daily in the AM for your blood pressure. Monitor your blood pressure a few times per week and make sure it is running under 130s/80s. If not we will increase the medication, give me an update in a month. Check the blood pressureat different times, sometimes in the AM, sometimes in the afternoon and sometimes in the PM but onlyonce daily or a few times per week. 2) We discussed that there are several lifestyle changes that can help improve overall mental and physical health including starting 2,000IU of Vitamin D3 daily and 2g fish oil daily (can get at [employer], Nature Made brand is good). Also drinking 2-3 liters of water per day and eating a healthy diet, more frequent, smaller meals of higher protein, lean meats, fruits, veggies, whole grains and avoid fast foods and processed foods and artificial sweeteners. Eat more healthy fats also like avocado, eggs,nuts, coconut oil, leonel seeds. Check out the book Food, What the Heck Should I Eat? By Dr. Wilton Monroy. 3) We also discussed the importance of getting regular exercise, aiming for 30- 60min of cardio/strength/yoga at least 4-6 times per week. 4) Continue your other medications as directed. 5) Recheck labs in 3 months. Come in for lab only visit first to do fasting labs, make sure to drinkat least 20oz of water before hand but no food from midnight the night before. Then schedule annual exam and med check visit for a couple days later. 6) Call to schedule your eye exam also at number below. Call with any questions or concerns in the meantime. Thanks, Colette Verma PAC. documented in this encounter Progress Notes Colette Verma PA-C - 02/15/2018 2:00 PM CDT Clinic Visit SUBJECTIVE: CC: Chief Complaint Patient presents with ??? MEDICATION CHECK History of Present Illness: Pt is here today for a med check. 1) Diabetes: She is taking Metformin 1,000mg, 2 tabs po bid with food, we'll continue this and consider adding something in 3 months if HgbA1C is going up. She is working on a more paleo diet, less carbs, more healthy fats and proteins. She has a stationary bike in her house and treadmill which is broken but they are going to fix it. Her knee surgery went well so she can start to bike again. Discussed working up to 30-60min of cardio at least 4-6 times per week. She is on the statin for the diabetes, said her cholesterol has been fine in the past. 2) Hypertension: Lisinopril made her cough in the past but she is doing fine on amlodipine. Discussed switching to losartan though to have better kidney protection since she is a diabetic and she wouldlike to do that. Denies any headaches, vision changes, chest pains, palpitations, edema, dizziness. 3) Gerd: Has to take Prilosec 20mg qAM or her reflux comes back, hopefully some healthy diet changeswill help. Lab Results Component Value Date/Time HGB A1C 7.1 (H) 01/25/2018 1425 Creatinine Serum 0.70 01/25/2018 1425 No results found for: CHOL, HDL, LDL, LDLPOC, TRI, TRIGPOC Lab Results Component Value Date/Time Alanine Aminotransferase 31 01/25/2018 1425 Aspartate Aminotransferase 33 01/25/2018 1425 PMH, Allergies and Medications reviewed and updated in [facility] today. Review of Systems: Review of systems reviewed and found to be negative except as noted above in HPI. OBJECTIVE: Vital Signs: BP 122/78 (BP Location: Left Arm, BP Cuff Size: Adult Large) Pulse 76 General: Pleasant in NAD. Obese. Skin: Warm and dry pink, psoriasis patch on R frausto noted. Psych: Well dressed and groomed, normal affect. ASSESSMENT: Encounter Diagnoses Name Primary? Type 2 diabetes mellitus without complication, without long-term current use of insulin (HRC) Yes ??? Essential hypertension (HRC) ??? Gastroesophageal reflux disease without esophagitis ??? Screen for STD (sexually transmitted disease) PLAN: Adeola was seen today for medication check. Diagnoses and all orders for this visit: Type 2 diabetes mellitus without complication, without long-term current use of insulin (HRC) - metFORMIN (GLUCOPHAGE) 1000 MG tablet; 2 tabs po bid with food - rosuvastatin (CRESTOR) 10 MG tablet; Take 1 Tablet by mouth daily. - Ophthalmology Consult-Adult/Peds - Lipid Panel and Direct LDL(If Needed); Future - Microalb/Creat Ratio; Future - Hgb A1c; Future Essential hypertension (HRC) - losartan (COZAAR) 25 MG tablet; Take 1 Tablet by mouth daily. - Comp Metabolic Panel; Future Gastroesophageal reflux disease without esophagitis - omeprazole (PRILOSEC) 20 MG capsule; Take 1 Capsule by mouth daily. Take 1 hour before a meal. Screen for STD (sexually transmitted disease) - HIV 1/2 Ag/Ab 4th Generation; Future - Hepatitis C Virus Melissa with Reflex; Future Here is plan below: 1) Stop the Amlodipine 5mg tablet and start the Losartan 25mg tablet once daily in the AM for your blood pressure. Monitor your blood pressure a few times per week and make sure it is running under 130s/80s. If not we will increase the medication, give me an update in a month. Check the blood pressureat different times, sometimes in the AM, sometimes in the afternoon and sometimes in the PM but onlyonce daily or a few times per week. 2) We discussed that there are several lifestyle changes that can help improve overall mental and physical health including starting 2,000IU of Vitamin D3 daily and 2g fish oil daily (can get at [employer], Nature Made brand is good). Also drinking 2-3 liters of water per day and eating a healthy diet, more frequent, smaller meals of higher protein, lean meats, fruits, veggies, whole grains and avoid fast foods and processed foods and artificial sweeteners. Eat more healthy fats also like avocado, eggs,nuts, coconut oil, leonel seeds. Check out the book Food, What the Heck Should I Eat? By Dr. Wilton Monroy. 3) We also discussed the importance of getting regular exercise, aiming for 30- 60min of cardio/strength/yoga at least 4-6 times per week. 4) Continue your other medications as directed. 5) Recheck labs in 3 months. Come in for lab only visit first to do fasting labs, make sure to drinkat least 20oz of water before hand but no food from midnight the night before. Then schedule annual exam and med check visit for a couple days later. 6) Call to schedule your eye exam also at number below. Call with any questions or concerns in the meantime. Thanks, ZAID Oshea. 25min spent with pt today, all in consult about above A/P. HRK documented in this encounter Plan of Treatment Scheduled Referrals Name Type Priority Associated Diagnoses Order [facility] Ophthalmology Referral Routine Type 2 diabetes Ordered: Consult-Adult/Peds mellitus without complication, without long-term current use of insulin (HRC) documented as of this encounter Results Microalb/Creat Ratio (02/15/2018 2:40 PM CDT) athologist Signature Microalbumin 29.7 mg/L PN SOFT Urine U Creat Random 121 mg/dL PN SOFT Microalbumin/Crea 24.5 0.0 - 30.0 PN SOFT tinine Ratio Specimen Anatomical Collection Method Collection Time Receive d Time (Source) Location / / Volume Laterality Urine specimen 02/15/2018 2:40 PM 018 4:52 (specimen) CDT PM CDT Narrative PN SOFT - 02/15/2018 5:49 PM CDT Performed at [facility], [address] [place] [address] CLIA number [id number] Colette Verma PA-C LAB_1 Performing Organization Address City/State/ZIP Code [facility] e Number PN SOFT [address] [place] [address] [phone] documented in this encounter Visit Diagnoses Diagnosis Type 2 diabetes mellitus without complic ation, without long-term current use of insulin (HRC) - Primary Essential hypertension (HRC) Unspecified essential hypertension Gastroesophageal reflux disease without esophagitis Esophageal reflux Screen for STD (sexually transmitted dis ease) Screening examination for venereal disea se Type 2 diabetes mellitus without complic ation, without long-term current use of insulin (HRC) documented in this encounter Care Teams Test Borer Helper Relationship Specialty Start Date End Date Colette Verma PA-C PCP - General Physician Roll Wrapper 01/19/18 [address] [place] [address] documented as of this encounter
--- OUTSIDE RECORDS SUMMARY | 2022-04-24 07:34 | XMS_ITS | Encounter Summary ---
:1955 Author Reason for Visit Bladder Cancer Assessment and Plan 1. History of malignant neoplasm of liza dder 1. H/O Bladder cancer (LG Ta) - s/p TUR-BT (05/26/12) - LG Ta - patient is no longer smoking - Cystoscopy (04/14/22) reveals normal b ladder / normal urethra - recommend annual Cystoscopy ? urinalysis, dipstick ? culture, urine 2. Microscopic hematuria 2. Microscopic hematuria - Cystoscopy (04/14/22) revealed a elena l bladder - check UCx - check CT Urogram ? CT, urogram - CT A/P with and without contrast Discussion Note: None recorded.Patient educational handouts: No information available. Plan of Care Reminders Provider Appointments None recorded. ? ? Lab Urinalysis, Dipstick 04/14/2022 [facility] ? Culture, Urine 04/14/2022 [place] [facility] Referral None recorded. ? ? Procedures None recorded. ? ? Surgeries None recorded. ? ? Imaging CT, Urogram 04/14/2022 [facility] Radiology Department Medications Name Start Date ? ? betamethasone, augmented 0.05 % topical cream ? APPLY TO BOTH LOWER LEGS TWO TIMES A DA Y FOR 2-3 WEEKS, THEN TWICE DAILY NEEDED FOR FLARES cefuroxime axetil 500 mg tablet ? Take 1 tablet every 12 hours by oral route for 7 days . Contour Next One Meter ? USE DIRECTED ONCE DAILY Contour Next Test Strips ? USE DIRECTED ONCE DAILY glipizide ER 10 mg tablet, extended release 24 hr ? TAKE ONE TABLET BY MOUTH ONCE DAILY losartan 25 mg tablet ? TAKE ONE TABLET BY MOUTH ONCE DAILY metformin 1,000 mg tablet ? TAKE ONE TABLET BY MOUTH TWICE A DAY WITH MEALS omeprazole 20 mg capsule,delayed release ? TAKE ONE CAPSULE BY MOUTH ONCE DAILY rosuvastatin 10 mg tablet ? TAKE ONE TABLET BY MOUTH ONCE DAILY Skyrizi 150 mg/1.66 mL(75 mg/0.83 mL x 2) subcutaneous syringe kit ? Inject by subcutaneous route. Medications Administered None recorded. Vitals Height Weight 5 ft 4 in 239 lbs Results Lab Results Date Name Specimen Result Interpretation Description Value Range Status Address ? 04/14/2022 Culture, UR ABNORMAL Final microbiology ? Dany [facility] [place] Urine Report results Urology - Emmy Yates b: [address], [place] 04/14/2022 Urinalysis, ? Color-S Yellow ? ? [...] [address], [place] Allergies Code Code System Name Reaction Severity Onset 20301203 RxNorm Keflex Diarrhea ? ? Problems None recorded. Procedures Date Name Performed by ? ? Transurethral Resection of Neoplasm of I nformation not available Bladder 04/14/2022 CT, Urogram [facility] Radiology Department [address] [place] [address] (Work Place) Vaccine List Vaccine Type pneumococcal polysaccharide PPV23 09/28/2020 Social History Tobacco Smoking Status Former Smoker What was the date of your most recent tobacco 04/14/2022 screening? Do you use any illicit or recreational drugs? N When did you quit smoking? 6-10yearssincelastcigarette What is your level of alcohol consumption? Moderate What is your level of caffeine consumption? Occasional Family History Relation Problem Onset Age of Age Notes Father No current problems or (No Information) N/A ( No Notes) disability Mother No current problems or (No Information) N/A ( No Notes) disability Functional Status Unknown. Past Encounters 04/14/2022 History of Malignant Neoplasm of Bladder ; Microscopic Hematuria Daniel Pires MD: [address], [place] [address], Ph. History of Present Illness Note: <div>66 yo female with history of Bladder cancer, plaque psoriasis, HTN, DM (type 2), hyperlipidemia, and obesity. She reports 2 UTIs in the past year. Her recent UAs have shown microscopic hematuria and pyuria - UCx have been negative. She voids every 2-3 hours during the day and 2x/night. Shehas occasional urgency - denies hesitancy, slow stream, or dysuria.</div><div>
& lt;/div><div>- s/p TUR-BT (05/26/12) - LG Ta ([place])</div><div>
</div><div>- UA - trace blood - moderate LE</div> Review of Systems ? Comprehensive General Adult ROS Reported By: Patient Constitutional: Constitutional: no fever, no chills Eyes: Eyes: no dry eyes, no vision change, no irritation Endocrine: Endocrine: no fatigue, no in creased thirst Cardiovascular: Cardiovascular: no chest isabell n, no palpitations Integumentary: Skin: no rashes, no change i n skin color Respiratory: Respiratory: no wheezing, no cough, no shortness of breath Gastrointestinal: Gastrointestinal: no abdomin al pain, no nausea, no vomiting, no constipation, no GERD Musculoskeletal: Musculoskeletal: no neck isabell n, no back pain Neurologic: Neurologic: no tremor, no di zziness, no numbness, no headaches Genitourinary: Genitourinary: no incontinen ce, no difficulty urinating ENMT: Ears: no ear pain. Mouth/Thr oat: no sore throat Allergic/Immunologic: Allergy/Immunologic: no itch ing, no hives Hematologic/Lymphatic: Hematologic/Lymphatic no swo llen glands, no excessive bleeding Psychiatric: Psych: no hallucinations, (n ormal) sleep disturbances: mismatch of sleep / wake miguel edule with lifestyle needs Physical Exam ? Urology Female Reported By: Patient Constitutional: General Appearance: healthy- appearing, overweight. Level of Distress: no acute distress Abdomen: Inspection and Palpation: so ft, no tenderness, no masses, no CVA tenderness Female Genitalia: Vulva: no masses, no atrophy , no lesions. Bladder/Urethra: no urethral discharge, bladder non distended; urethral with mild retraction along anterior wa ll. Vagina: no tenderness, no abnormal vaginal discharge Skin: General Appearance of extrem ities: no edema. Inspection and palpation: normal temperatur e
--- OUTSIDE RECORDS SUMMARY | 2022-04-24 07:34 | XMS_ITS | Encounter Summary ---
:1955 Author Organization [facility] Address [address] [place] [address] Care Team Providers Name Role Phone Unavailable Primary Care Provider Unavailable Reason for Referral Specialty Diagnoses / Procedures Referred By Contact Refer red To Contact [facility] [address] [place] [phone] Referral ID Status Reason Start Date Expiration Date Visits Requ ested Visits Authorized ATE DUTY RN Encounter Details Date Type Department Care Team Description 07/13/2020 Immunization Urgent Care, [address], in [facility] (Primary Dx) [address] [place] [phone] Social History Tobacco Use Types Packs/Day Years Used Date Smoking Tobacco: Never Assessed Sex Assigned at Date Recorded Not on file documented as of this encounter Plan of Treatment Scheduled Referrals Name Type Priority Associated Diagnoses Order S chedule Covid immunization Outpatient Referral Routine Encounter For E xpected: office visit Covid-19 Vaccine 08/03/2020, Subsequent; 21 days Immunization Expires: 07/13/2023 documented as of this encounter Visit Diagnoses Diagnosis Encounter For COVID-19 Vaccine Immunizat ion - Primary documented in this encounter
--- OUTSIDE RECORDS SUMMARY | 2022-04-24 07:34 | XMS_ITS | Clinical Summary ---
:1955 Author Organization [facility] Address [address] [place] [address] Care Team Providers Name Role Phone Unavailable Primary Care Provider Unavailable Source Comments Patient records contain information from all sites at [facility]. For routine questions regarding patient records, call [phone] during business hours, M-F 8:00 AM - 5:00 PM Central Time. Record requests for emergency care only can be directed to [phone] at any time.[facility] Immunizations Name Administration Dates Next Due Influenza TIV (IM) 06/01/2017, 04/07/2016, 04/26/2013, 03/25/2012 Influenza, Unspecified 04/07/2016, 05/21/2015, 03/29/2014 SARS-COV-2 (COVID-19) - PFIZER (12 08/03/2020, 07/13/2020 years or older) Tdap 06/09/2014 influenza vaccine quad 04/17/2021 (FLUZONE/FLUARIX) (6 months and older)(PF) Social History Tobacco Use Types Packs/Day Years Used Date Smoking Tobacco: Never Assessed Sex Assigned at Date Recorded Not on file Plan of Treatment Health Maintenance Due Date Last Done Comments Bone Density Scan 1955 (Osteoporosis Screen) CT Colonography 1955 Cologuard 1955 Colonoscopy 1955 Colorectal Cancer Screening 1955 FIT 1955 Fasting Glucose for 1955 Diabetes Screening Hepatitis C Screening 1955 Mammogram 1955 Zoster Vaccines (1 of 2) 1974 COVID-19 Vaccine (3 - 08/31/2020 08/03/2020, 07/13/2020 Pfizer risk series) Depression Screening 06/29/2021 (Annual PHQ-2) Fall Risk Screen (Annual) 06/29/2021 Pneumococcal vaccine (65+ 09/28/2021 09/28/2020 years) (2 - PCV) Influenza Vaccine (#1) 2022 04/17/2021, 04/17/2020, 04/04/2019, Additional history exists DTaP,Tdap,and Td Vaccines 06/09/2024 06/09/2014 (2 - Td or Tdap) HPV Vaccines Aged Out No longer eligib le based on patient 's age to complete this topic Insurance Payer Benefit Plan Subscriber ID Effective Phone Address Typ e / Group Dates [facility] [id number] 2020-Pres [phone] [address] [address] PPO PLUS ent [address] [place] [phone] (Home) [place] [id number]
--- OUTSIDE RECORDS SUMMARY | 2022-04-24 07:34 | XMS_ITS | Encounter Summary ---
:1955 Author [facility] Address [address] [place] [address] [place] [address] Care Team Providers Name Role Phone Bayron Colette Pagan PA-C Primary Care Provider Reason for Visit Reason Comments Knee Problem Right Knee Encounter Details Date Type Department Care Team Description 02/08/2018 Office Visit [facility], Postop check (Primary [facility] Dx) [address] [place] [address] [place], [place] [phone] (Wo rk) Social History Tobacco Use Types Packs/Day Years Used Date Smoking Tobacco: Former Cigarettes Quit : 01/25/2015 Smokeless Tobacco: Never Alcohol Use Standard Drinks/Week Comments Yes 0 (1 standard drink = 0.6 oz pure alcoho l) rare Sex Assigned at Date Recorded Not on file documented as of this encounter Patient Instructions Patient InstructionsRosetta Call MA - 02/08/2018 11:00 AM CDT Va Crabtree PA-C, ATC Physician Electron Gun Inspector Please contact the nurse line for all medical related questions at [phone] Medication Requests: Prescriptions are not filled on Weekends or on Weekdays after 3:00PM For all medication refills: Request a refill using MyChart or contact your Pharmacy documented in this encounter Progress Notes Va Crabtree PA-C - 02/08/2018 11:00 AM CDT HISTORY OF PRESENT ILLNESS: Adeola Hector is a pleasant 62 y.o. female who returns 12 days status post right knee arthroscopy with partial medial meniscectomy and chondroplasty of the patella, trochlea, and medial femoral condyle.Surgery was performed by Dr. Luque on 01/27/18. Overall she feels like she is recovering as expectedand rates her pain as a 3/10 in severity. She discontinued [place] and takes ibuprofen as needed with relief. This is a workman's comp injury and she has not returned to work since surgery. Physical therapy is scheduled to start next week in [place]. She denies any fever, chills or shortness of breath. PHYSICAL EXAM: The patient is alert, oriented, and in no apparent distress. She ambulates with a slightly antalgic gait, without the use of a brace or any other assisted device. Examination of the right knee reveals a mild effusion and moderate erythema around the two lateral incisions. No ecchymosis. Small amount of purulence but no significant drainage. Calf is soft and non-tender to palpation. Range of motion isabout 3-100 degrees and pain free. She is otherwise neurovascularly intact distally. IMPRESSION: Status post right knee arthroscopy with partial medial meniscectomy and chondroplasty of the patella, trochlea, and medial femoral condyle (DOS:01/27/18) PLAN: Surgical findings were discussed with the patient and scope pictures were reviewed. Sutures removed and but no steri-strips were applied due to the redness around the incisions. I recommend we start a course of Keflex for early cellulitis and she agrees with that plan. Keflex is e-prescribed to her [facility] in [place]. We discussed concerning signs of a deep infection including fever, joint effusion and painful range of motion and she is instructed to seek immediate medical attention if those develop. She will change the bandages daily and let us know if there is no improvement in the nextfew days. She may otherwise begin physical therapy as scheduled, continue as long as it is beneficial and transition to a home exercise program. We discussed how she can progressively increase her activities as tolerated. We also discussed her return to work and decided that she be off work until her next follow-up appointment with the goal of starting light duty work at that point. She was asked to return to clinic in 5 weeks' time for a routine 6 week postop check with Dr. Luque. All questions were answered today and she is invited to call with any additional questions. documented in this encounter Plan of Treatment Not on filedocumented as of this encounter Visit Diagnoses Diagnosis Postop check - Primary Follow-up examination, following unspeci fied surgery documented in this encounter Care Teams Talent Assistant Relationship Specialty Start Date End Date Colette Verma PA-C PCP - General Physician Electron Gun Inspector 01/19/18 [address] [place] [address] documented as of this encounter
--- OUTSIDE RECORDS SUMMARY | 2022-04-24 07:34 | XMS_ITS | Encounter Summary ---
:1955 Author Organization [facility] Address [address] [address] Care Team Providers Name Role Phone Bayron Colette Pagan PA-C Primary Care Provider Reason for Visit Reason Comments Knee Pain or Injury right Encounter Details Date Type Department Care Team Description 03/09/2018 Office Visit [facility] Pablito Luque, S/P rig ht knee arthroscopy (Primary Dx); CENTER Aftercare following surgery of [facility] [address] [facility] [address] [place] [address] [place] [address] [phone] Social History Tobacco Use Types Packs/Day Years Used Date Smoking Tobacco: Former Cigarettes Quit : 01/25/2015 Smokeless Tobacco: Never Alcohol Use Standard Drinks/Week Comments Yes 0 (1 standard drink = 0.6 oz pure alcoho l) rare Sex Assigned at Date Recorded Not on file documented as of this encounter Patient Instructions Patient InstructionsFátima Forbes, ATC - 03/09/2018 11:[address] Pablito Luque MD Orthopaedic Surgeon Operator Receptionist: Karis Zaragoza Please contact Karis for all administrative questions at [phone] Physician Curriculum Coach: Va Crabtree PA-C Nurse: Randi Schultz Please contact Randi for any medical questions at [phone] Medication Requests: Prescriptions are not filled on Weekends or on Weekdays after 3:00PM For all medication refills: Request a refill using MyChart or contact your Pharmacy documented in this encounter Progress Notes Pablito Luque MD - 03/09/2018 11:00 AM CDT Orthopaedic Surgery Postoperative Follow-Up 03/09/2018 History of Present Illness: Adeola Hector is a 62 y.o. female workers' compensation patient status-post right knee arthroscopy, partial medial meniscectomy and chondroplasty completed on 01/27/2018 who presents today for postoperative follow-up. Today, the patient reports she is doing well postoperatively. She states has experienced intermittent shooting pains at the knee. She has difficulty walking up and down stairs due to soreness and discomfort. Denies any swelling, numbness or tingling. Physical Exam: General: Pleasant 62 y.o. female in no acute distress. Appropriate affect. Alert and oriented x 3. Walks with a non-antalgic gait. Skin: Well-healed incisions. Right Knee: Range of motion 0-110 degrees. No medial or lateral joint line tenderness. Neurovascularly intact distally. Assessment: Diagnosis and Associated Orders ICD-10-CM 1. S/P right knee arthroscopy Z98.890 status-post right knee arthroscopy, partial medial meniscectomy and chondroplasty 2. Aftercare following surgery of the musculoskeletal system Z47.89 Plan: Patient is doing well. She should continue with physical therapy until the therapist feels she is ready to transition to a home program. The patient was provided with an updated workability form outlining light duty, sedentary work restrictions. Follow up in six weeks for reevaluation. All questions were answered. Scribe Disclosure: INirmala, am serving as a scribe to document services personally performed by Pablito Luque MD at this visit, based upon the provider's statements to me. All documentation has been reviewed bythe aforementioned provider prior to being entered into [...] of this encounter Visit Diagnoses Diagnosis S/P right knee arthroscopy - Primary Other postprocedural status [facility] documented in this encounter Care Teams Director Hedis Relationship Specialty Start Date End Date Colette Verma PA-C PCP - General Physician Curriculum Coach 01/19/18 [address] [place] [address] documented as of this encounter
--- OUTSIDE RECORDS SUMMARY | 2022-04-24 07:34 | XMS_ITS | Encounter Summary ---
:1955 Author [facility] Address [address] [place] [address] Care Team Providers Name Role Phone Colette Verma PA-C Primary Care Provider Reason for Visit Reason Comments Preop Exam 01/27/2018 DOROTHY Luque Encounter Details Date Type Department Care Team Description 01/25/2018 Pre-Op Visit [facility] Colette Verma, Preoper ative examination (Primary Dx); Medicine PA-Bill Tear of medial meniscus of right knee, c urrent, unspecified tear type, initial encounter; [address] Type 2 diabetes mellitus without complic ation, without long-term current use of insulin (HRC); [place], [place] Morbid obesit y with BMI of 40.0-44.9, adult (HRC); [id number] Lucy infection of flexural skin [phone] Social History Tobacco Use Types Packs/Day Years Used Date Smoking Tobacco: Former Cigarettes Quit : 01/25/2015 Smokeless Tobacco: Never Alcohol Use Standard Drinks/Week Comments Yes 0 (1 standard drink = 0.6 oz pure alcoho l) rare Sex Assigned at Date Recorded Not on file documented as of this encounter Last Filed Vital Signs Vital Sign Reading Time Taken Comments Blood Pressure 125/80 01/25/2018 1:24 PM CDT Pulse 69 01/25/2018 1:24 PM CDT Temperature 37.2 ??C (99 ??F) 01/25/2018 1:24 PM CDT Respiratory Rate 16 01/25/2018 1:24 PM CDT Oxygen Saturation 95% 01/25/2018 1:24 PM CDT Inhaled Oxygen Concentration - - Weight 111.6 kg (246 lb) 01/25/2018 1:24 PM CDT Height 163.8 cm (5' 4.5) 01/25/2018 1:24 PM CDT Body Mass Index 41.57 01/25/2018 1:24 PM CDT documented in this encounter OR Notes H&P - Colette Verma PA-C - 01/25/2018 1:30 PM CDT PREOPERATIVE ASSESSMENT Date of : 1955 Age: 62 y.o. Sex: female Preoperative Evaluation completed by: Colette Verma PA-C Primary care physician: Colette Verma PA-C [phone] CHIEF COMPLAINT Pre-Operative Evaluation ANTICIPATED PROCEDURE Pt will be having R knee arthroscopy with Dr. Pablito Luque on 01/27/18 at [facility]. HISTORY OF PRESENT ILLNESS Pt was working in the [employer] room in October and twisted her R knee and torn the meniscus. She waited to do the surgery until they moved up here from [place], [place]. They moved here in November to be with Family. Their son is here. The knee bothers her every day and aches at night so they recommended the surgery. Pt took last dose of Advil 800mg night of 01/24/18. She stopped aspirin 81mg last week. Pts last Humara dose for her psoriasis was 01/24/18. No signs of infection today, should be fine for surgery. Risk Factors/Review of Systems: (Please see flowsheets for details) Cardiovascular risks negative except for: HTN: Pt states she doesn't have hypertension that she knows of but she is on Amlodipine 5mg so I putit down. Renal risks negative except for: Neuro risks negative except for: GI risks negative except for: GERD: Stable on Omeprazole 20mg qd Pulmonary risks negative except for: Amt/Quit Date:: Quit in 2014. Endocrine/Nutrition risks negative except for: Diabetes: Details: Type 2, Controlled Hematologic Disease risks negative except for: Musculoskeletal/Skin risks negative except for: Torn R knee medial meniscus. Mental Health risks negative except for: Other risk factors negative except for: Complete review of systems is otherwise negative except as noted: above. . Past Medical History: Diagnosis Date ??? Cancer (HRC) 2012 bladder ??? Diabetes mellitus (HRC) ??? Gastroesophageal reflux disease ??? Obese (HRC) ??? Plaque psoriasis ??? Type 2 diabetes mellitus (HRC) Past Surgical History: Procedure Laterality Date ??? BLADDER SURGERY 2011 bladder cancer ??? TONSILLECTOMY Family History Problem Relation Age of Onset ??? Alzheimer's Mother ??? Diabetes Father ??? Heart Disease Father ??? No Known Problems Son Social History Social History ??? Marital status: Spouse name: Noah ??? Number of children: 1 ??? 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 Social History Main Topics ??? Smoking status: Former Smoker Quit date: 01/25/2015 ??? Smokeless tobacco: Never Used ??? Alcohol use Yes Comment: rare ??? Drug use: No ??? Sexual activity: Yes Partners: Male control/ protection: Post-menopausal Other Topics Concern ??? Bike Helmet Yes ??? City Water No ??? Exercise Yes ??? Seat Belt No ??? Weight Concern Yes Social History Narrative Current Outpatient Prescriptions Medication Sig Dispense Refill ??? Adalimumab (HUMIRA) 40 MG/0.4ML PSKT 1 shot twice a month ??? amLODIPine (NORVASC) 5 MG tablet Take 5 mg by mouth daily. ??? aspirin, enteric-coated 81 MG enteric coated tablet Take 81 mg by mouth daily. ??? metFORMIN (GLUCOPHAGE) 1000 MG tablet Take 1,000 mg by mouth two times a day with meals. ??? nystatin (MYCOSTATIN) [id number] UNIT/GM cream Apply to rash under breasts bid prn 60 g 5 ??? omeprazole (PRILOSEC) 20 MG capsule Take 20 mg by mouth daily. Take 1 hour before a meal. ??? rosuvastatin (CRESTOR) 10 MG tablet Take 10 mg by mouth daily. No current facility-administered medications for this visit. No Known Allergies PHYSICAL EXAMINATION: BP 125/80 (BP Location: Right Arm, BP Cuff Size: Adult Large) Pulse 69 Temp 99 ??F (37.2 ??C) (Oral) Resp 16 Ht 5' 4.5 (1.638 m) Wt 246 lb (111.6 kg) SpO2 95% BMI 41.57 kg/m2 General: Patient alert, in NAD. Morbidly obese. HEENT: PERRLA. EOMI. Bilateral TM's, external canals normal. Nose: normal mucosa, turbinates, without lesions. Oropharynx normal, normal teeth, gums, tongue, moist mucosa. Skin: Warm, dry, without lesions noted, pt does have psoriasis in cleavage area and under b/l breasts but also has lucy infection under the breast folds because the skin is more red and macerated. Has psoriasis on b/l shins also. Neck: Supple, without thyromegaly, masses or lymphadenopathy. CV: RRR without murmurs, rubs or gallops. Resp: Clear to auscultation b/l without rhonchi, wheezes or rales. Abdomen: Obese, soft, non-tender, without palpable hepatosplenomegaly, masses, or hernias, b/s x 4. Lower extremities: No edema, varicosities, or deformity. Pt has patches of psoriasis b/l shins. MS: Normal cervical, thoracic and lumbar spine without deformities, non-tender. Neuro: Antalgic gait, patellar reflexes 2/4+ b/l, biceps reflexes 2/4+ b/l. Psychiatric: Alert & oriented with normal affect and insight, does not appear depressed or anxious. TEST RESULTS AND DATE EKG done: Today: 01/25/2018. Normal EKG today. Labs done: Yes: date and results: CMP=normal except for borderline glucose, HgbA1c was 7.1, CBC=normal white count but hct, hgb and RBC are borderline high. ASSESSMENT 1. Preoperative Assessment: This patient has been examined by me today and has been found to be a suitable candidate for surgery: YES. 2. R knee medial meniscus tear. RECOMMENDATIONS AND PLAN Day of surgery testing: none Medication recommendations: no adjustments needed. Additional screening recommended: no Consult (Cardiology/other): no Additional test results attached: none Beta yoni protocol ordered: no Insulin/Diabetes orders initiated: no Not on insulin. Initiate continuous O2 sat monitoring post-op: no Other: no ABOVE RECOMMENDATIONS WERE REVIEWED WITH PATIENT: yes Colette Verma PA-C 01/26/2018 documented in this encounter Plan of Treatment Not on filedocumented as of this encounter Procedures Procedure Name Priority Date/Time Associated Diagnosis Comme nts ECG 12 LEAD Routine 01/25/2018 1:37 PM Preoperative Results f or this OUTPATIENT CDT examination procedure are i n the results section. documented in this encounter Results (ABNORMAL) Hgb A1c (01/25/2018 2:25 PM CDT) athologist Signature HGB A1C 7.1 (H) 4.0 - 5.6 % PN SOFT Specimen Anatomical Collection Method Collection Time Receive d Time (Source) Location / / Volume Laterality 01/25/2018 2:25 PM 8 6:21 CDT PM CDT Narrative PN SOFT - 01/25/2018 11:00 PM CDT Performed at [facility], [address] [place] [address] CLIA number [id number] Colette Verma PA-C LAB_1 Performing Organization Address City/State/[facility] Phon e Number PN SOFT [address] [place] [address] (ABNORMAL) Comp Metabolic Panel (01/25/2018 2:25 PM CDT) [facility] gist Method Time Signature Aspartate 33 [...] - 01/25/2018 5:36 PM CDT Performed at [facility], [address] [place] [address] CLIA number [id number] Colette Verma PA-C LAB_1 Performing Organization Address City/State/[facility] Code Phon e Number PN SOFT [address] [place] [address] (ABNORMAL) Complete Blood Count-No Diff (01/25/2018 2:25 PM CDT) [facility] gist Method Time Signature White Blood [...] - 01/25/2018 2:27 PM CDT Performed at [facility], [address] [place] [address] CLIA number [id number] Colette Verma PA-C LAB_1 Performing Organization Address City/[facility]/ZIP Code Phon e Number PN SOFT [address] [place] [address] ECG 12 Lead Outpatient (01/25/2018 1:37 PM CDT) P athologist Signature Ventricular Rate 69 BPM [facility] Atrial Rate 69 BPM [facility] P-R Interval 130 ms [facility] QRS Duration 84 ms [facility] QT 390 ms [facility] QTc 417 ms [facility] P [place] 11 degrees [facility] R [place] -7 degrees [facility] T [place] 28 degrees [facility] Specimen (Source) Anatomical Collection Method Collection Time Re ceived Time Location / / Volume Laterality 01/25/2018 1:37 PM CDT Narrative [facility] - 01/25/2018 1:44 PM CDT Sinus rhythm Normal ECG No previous ECGs available Confirmed by ABRAN CANADA ([id number]) on 12/29 1:44:51 PM Procedure Note Abran Canada MD / Epic, Internal Pro cessing - 10/14/2019 Sinus rhythm Normal ECG No previous ECGs available Confirmed by ABRAN CANADA ([id number]) on 12/29 1:44:51 PM Colette Verma PA-C PN ECG ORDERABLES Performing Organization Address [facility] Phon e Number [facility] [address] [place] [address] documented in this encounter Visit Diagnoses Diagnosis Preoperative examination - Primary Preoperative examination, unspecified Tear of medial meniscus of right knee, c urrent, unspecified tear type, initial encounter Type 2 diabetes mellitus without complic ation, without long-term current use of insulin (HRC) Morbid obesity with BMI of 40.0-44.9, ad ult (HRC) Lucy infection of flexural skin Candidiasis of skin and nails Preoperative examination Preoperative examination, unspecified Type 2 diabetes mellitus without complic ation, without long-term current use of insulin (HRC) documented in this encounter Care Teams Dexigraph Operator Relationship Specialty Start Date End Date Colette Verma PA-C PCP - General Physician Drinking Water Technician 01/19/18 [address] [place] [address] documented as of this encounter
--- NOTE | 2022-04-24 08:00 | CRLHL7_ITS ---
For Patients: As a result of the 21st Century Cures Act, medical imaging exams and procedure reports are released immediately into your electronic medical record. You may view this report before your referring provider. If you have questions, please contact your health care provider. INDICATION: MICROSCOPIC HEMATURIA , HX OF BLADDER CANCER TECHNIQUE: CT abdomen and pelvis urogram without and with 99 cc Isovue 370 intravenous contrast. Contrast images were obtained in the nephrographic and delayed phases. COMPARISON: None. FINDINGS: KIDNEYS: The unenhanced images demonstrate a large 1 cm stone in the distal left ureter with left hydroureter and hydronephrosis. The kidneys are normal in caliber. The right kidney demonstrates normal uptake and excretion of IV contrast. There is decreased uptake and delayed excretion of contrast regarding the left kidney. No masses. The right renal collecting system and right ureter are normal. There is an incidental subcentimeter cyst in the midportion of the right kidney. URINARY BLADDER: The urinary bladder is normal in caliber and without evidence of mass, wall thickening, or inflammation. OTHER: Mild scarring at the medial right lung base. No pleural effusion. No free intraperitoneal air. Fatty infiltration of the liver. Gallbladder normal. Normal pancreas and spleen. There is a 1.5 cm benign left adrenal adenoma. Normal right adrenal gland. Atherosclerotic disease. No aneurysm. No adenopathy. Uterus and ovaries appear normal. No bowel obstruction. No fracture IMPRESSION: 1. Obstructing 1 cm stone in the distal left ureter with left hydroureter and left hydronephrosis. Delayed opacification and excretion of contrast regarding the left kidney consistent with obstructive nephropathy. 2. 1.5 cm benign left adrenal adenoma. 3. Hepatic steatosis. Please note that all CT scans at this facility use dose modulation, iterative reconstruction, and/or weight-based dosing when appropriate to reduce radiation dose to as low as reasonably achievable. Dictated by Ben Neville MD @ 04/24/2022 10:16:14 AM (Electronically Signed)
[2022-04-24 08:22] LABS: Creatinine* 0.8 mg/dL (0.5-1.5); Estimated Glomerular Filt Rate 81 ml/min
== END 2022-04-24 07:33 | disposition home or self-care (01) ==
LOC: CT 07:32
PROVIDERS: PCP Family Medicine; Visit Provider Urology
DX: R31.29 Other microscopic hematuria (principal); N13.2 Hydronephrosis with renal and ureteral calculous obstruction; K76.0 Fatty (change of) liver, not elsewhere classified; E27.9 Disorder of adrenal gland, unspecified
CPT/HCPCS: 36415; 74178; 82565; Q9967

== ENCOUNTER 2022-05-02 10:13 | Outpatient (CLI) | payer MEDICARE, BC, SELFPAY ==
--- OUTSIDE RECORDS SUMMARY | 2022-05-02 10:23 | XMS_ITS | Encounter Summary ---
:1955 Author Organization [facility] Address [address] [place] [address] Care Team Providers Name Role Phone Colette Verma PA-C Primary Care Provider Encounter Details Date Type Department Care Team Description 07/21/2018 [facility] [address] [address] [place], [place] [id number] [place] [address] [phone] (Wo rk) Social History Tobacco Use Types [...] on filedocumented in this encounter Care Teams Edge Trimmer Mechanic Relationship Specialty Start Date End Date Colette Verma PA-C PCP - General Physician Cellular Phone Repairer 01/19/18 [address] [place] [address] documented as of this encounter
--- OUTSIDE RECORDS SUMMARY | 2022-05-02 10:23 | XMS_ITS | Encounter Summary ---
:1955 Author Organization [facility] Address [address] [place] [address] Care Team Providers Name Role Phone Colette Verma PA-C Primary Care Provider Reason for Visit Reason Comments Refill rosuvastatin (CRESTOR) 10 MG tablet [Pharmacy Med Name: ROSUVASTATIN CALCIUM 10 MG TAB] Encounter Details Date Type Department Care Team Description 08/08/2018 Refill [facility] Colette Verma, Refill (rosuvastatin Medicine CARLOS (CRESTOR) 10 MG tablet [id number] [address] [facility] [Pharmacy Med Name: [place], [place] [address] ROSUVASTATIN CALCIUM 10 [id number] MG TAB]) [phone] Social History Tobacco Use Types Packs/Day Years [...] done prior to appointment, labs are pended. T WORKER Colette Verma PA-C - 08/09/2018 12:33 PM [...] go over the labs also. Colette Balderrama T WORKER Monserrat Gregg, RN - 08/09/2018 10:31 AM CST Further Assistance Needed on Refill from Clinician RN reviewed. Medication ordered for short term. Please advise if terminal makeup operator supply is appropriate Last qualifying visit: 02/15/2018 [...] TAKE 1 TABLET BY MOUTH EVERY DAY T WORKER Interface, Out Surescripts Prov Query - 08/08/2018 [...] (Sent to [facility]) Powered by [employer], Reference: [id number], 08/08/2018 8:44:50 AM CRAFT WORKER, Pool: FOREST REFILL ([id number]) T WORKER documented in this encounter Plan of Treatment Not on filedocumented as of this encounter Visit Diagnoses Diagnosis Essential hypertension (HRC) - Primary Unspecified essential hypertension Type 2 diabetes mellitus without complic ation, without long-term current use of insulin (HRC) documented in this encounter Care Teams Department Clinician Relationship Specialty Start Date End Date Colette Verma, PADebiC PCP - General Physician Gear Keeper 01/19/18 [address] [place] [address] documented as of this encounter
--- OUTSIDE RECORDS SUMMARY | 2022-05-02 10:23 | XMS_ITS | Encounter Summary ---
:1955 Author Organization [facility] Address [address] [place] [address] Care Team Providers Name Role Phone Colette Verma PA-C Primary Care Provider Reason for Visit Reason Onset Date Comments Refill Refill 08/09/2018 Encounter Details Date Type Department Care Team Description 08/08/2018 Refill [facility] Colette Romero PA-C Refill; Refill [address] [address] [place] [address] [place], [place] [id number] (Wo rk) Social History Tobacco Use Types [...] Provider: COLETTE VERMA Ordering User: SUSANNE PIZANO OMER SERVICE AGENT Interface, Out Surescripts Prov Query - 08/08/2018 [...] (Sent to [facility]) Powered by [employer], Reference: [id number], 08/08/2018 8:44:50 AM CUSTOMER SERVICE AGENT, Pool: FOREST REFILL ([id number]) OMER SERVICE AGENT documented in this encounter Plan of Treatment Not on filedocumented as of this encounter Visit Diagnoses Diagnosis Type 2 diabetes mellitus without complic ation, without long-term current use of insulin (HRC) documented in this encounter Care Teams Receiving Tank Operator Relationship Specialty Start Date End Date Colette Verma PA-C PCP - General Physician Blanker Press Operator 01/19/18 [address] [place] [address] documented as of this encounter
--- OUTSIDE RECORDS SUMMARY | 2022-05-02 10:23 | XMS_ITS | Encounter Summary ---
:1955 Author [facility] Address [address] [address] Care Team Providers Name Role Phone Colette Verma PA-C Primary Care Provider Reason for Visit Reason Onset Date Comments Medication Questions 05/12/2018 Encounter Details Date Type Department Care Team Description 05/12/2018 Telephone [facility] Colette Verma, Medicat ion Questions Medicine CARLOS [address] [address] [place], [place] [address] [phone] Social History Tobacco Use Types Packs/Day Years [...] strips she uses. States she moved to [place] the end of November. Has a One Touch Verio, is almost out of strips. Requested Prescriptions Signed Prescriptions Disp Refills ??? blood glucose (ONETOUCH VERIO) test strip 100 Strip 1 Sig: Use to test daily. Use as directed. Pharmacy dispense brand based on insurance. Authorizing Provider: COLETTE VERMA Ordering User: HARITHA JAIME OV 02/15/18 OVER RIG OPERATOR Mai Roman - 05/12/2018 10:12 AM CST Further assistance needed to complete refill request Reason: Clarification for medication regimen needed. Pharmacy asking for specific directions, for insurance billing purposes. Next Steps: Triage to complete refill as appropriate. CURRENT PRESCRIPTION: Drug Name/Strength: blood glucose test strip Sig: Use ??to test as needed for Blood Sugar >. Use as directed. Pharmacy dispense brand based oninsurance. OVER RIG OPERATOR documented in this encounter Plan of Treatment Not on filedocumented as of this encounter Visit Diagnoses Not on filedocumented in this encounter Care Teams Finance Consultant Relationship Specialty Start Date End Date Colette Verma PA-C PCP - General Physician Sales Planning Manager 01/19/18 [address] [place] [address] documented as of this encounter
--- OUTSIDE RECORDS SUMMARY | 2022-05-02 10:23 | XMS_ITS | Encounter Summary ---
:1955 Author Organization [facility] Address [address] [place] [address] Care Team Providers Name Role Phone Colette Verma PA-C Primary Care Provider Encounter Details Date Type Department Care Team Description 11/05/2018 Refill Order [facility] Colette Romero PA-C [address] [facility]. [address] [place] [address] [place] [address] [phone] (Wo rk) Social History Tobacco Use Types [...] - NEXT LAB APPOINTMENT: None Powered by [employer], Reference: [id number], 11/05/2018 1:21:06 PM CDT, Pool: FOREST LIGIA ([id number]) documented in this encounter Plan of Treatment Not on filedocumented as of this encounter Visit Diagnoses Diagnosis Encounter for long-term (current) use of medications - Primary Encounter for long-term (current) use of other medications documented in this encounter Care Teams Seasonal Warehouse Associate Relationship Specialty Start Date End Date Colette Verma PA-C PCP - General Physician Product Design Specialist 01/19/18 [address] [place] [address] documented as of this encounter
--- OUTSIDE RECORDS SUMMARY | 2022-05-02 10:23 | XMS_ITS | Encounter Summary ---
:1955 Author Organization [facility] Address [address] [place] [address] Care Team Providers Name Role Phone Colette Verma PA-C Primary Care Provider Encounter Details Date Type Department Care Team Description 08/08/2018 Refill Order [facility] Colette Romero [facility]-C [address] [facility] [address] [place] [address] [place] [address] [phone] (Wo rk) Social History Tobacco Use Types [...] Labs to be addressed at future visit. OR RECRUITER Interface, Out Surescripts Prov Query - 08/08/2018 8:44 AM CST SCHEDULE THE FOLLOWING: - HBA1C (PN ONLY) BY: Now (Due as of 07/24/2018 for metFORMIN (GLUCOPHAGE) 1000 MG tablet) - LAST QUALIFYING VISIT WITH COLETTE VERMA: 02/15/2018 - NEXT SCHEDULED VISIT: None - NEXT LAB APPOINTMENT: None Powered by [email or web address], Reference: [id number], 08/08/2018 8:44:50 AM Ayad WILSON: FOREST LIGIA ([id number]) E documented in this encounter Plan of Treatment Not on filedocumented as of this encounter Visit Diagnoses Diagnosis Encounter for long-term (current) use of medications - Primary Encounter for long-term (current) use of other medications documented in this encounter Care Teams Steel Finisher Relationship Specialty Start Date End Date Colette Verma PA-C PCP - General Physician Medical Concierge 01/19/18 [address] [place] [address] documented as of this encounter
--- OUTSIDE RECORDS SUMMARY | 2022-05-02 10:23 | XMS_ITS | Encounter Summary ---
:1955 Author Organization [email or web address] Address [address] [place] [address] Care Team Providers Name Role Phone Colette Verma PA-C Primary Care Provider Reason for Visit Reason Onset Date Comments Refill 11/05/2018 rosuvastatin (CRESTO R) 10 MG tablet; losartan (COZAAR) 25 MG tablet Encounter Details Date Type Department Care Team Description 11/05/2018 Refill [facility] Colette Verma, Refill (rosuvastatin Medicine CARLOS (CRESTOR) 10 MG tablet; [address] [address] [address] losartan (COZAAR) 25 MG [place], [place] [address] tablet) [address] [phone] Social History Tobacco Use Types Packs/Day Years [...] (PSC), please warm transfer call to extension [phone] to discuss. If no answer at extension, [...] ordered for short term. Please advise if alf supply is appropriate Last qualifying visit: 02/15/2018 [...] (Sent to [facility]) Powered by [employer], Reference: [id number], 11/05/2018 1:21:06 PM CDT, Pool: FOREST REFILL ([id number]) rosuvastatin (CRESTOR) 10 MG tablet Medication started: [...] (Sent to [facility]) Powered by [employer], Reference: [id number], 11/05/2018 1:21:06 PM CDT, Pool: FOREST REFILL ([id number]) documented in this encounter Plan of Treatment Not on filedocumented as of this encounter Visit Diagnoses Diagnosis Essential hypertension (HRC) Unspecified essential hypertension Type 2 diabetes mellitus without complic ation, without long-term current use of insulin (HRC) documented in this encounter Care Teams Preschool Paraprofessional Relationship Specialty Start Date End Date Colette Verma, HEAVENC PCP - General Physician Calculus Tutor 01/19/18 [address] [place] [address] documented as of this encounter
--- OUTSIDE RECORDS SUMMARY | 2022-05-02 10:23 | XMS_ITS | Encounter Summary ---
:1955 Author Organization [facility] Address [address] [place] [address] Care Team Providers Name Role Phone Colette Verma PA-C Primary Care Provider Reason for Visit Reason Onset Date Comments Refill 05/13/2018 Encounter Details Date Type Department Care Team Description 05/13/2018 [facility] Refill [address] [address] [place] [address] [place], [place] [phone] (Wo rk) Social History Tobacco Use Types Packs/Day Years Used Date Smoking Tobacco: Former Cigarettes Quit : 01/25/2015 Smokeless Tobacco: Never Alcohol Use Standard Drinks/Week Comments Yes 0 (1 standard drink = 0.6 oz pure alcoho l) rare Sex Assigned at Date Recorded Not on file documented as of this encounter Nursing Notes Tammie Cornejo RN - 05/13/2018 2:47 PM CST Resent R AND SCALER Geetha Martinez - 05/13/2018 1:58 PM CST Further assistance needed to complete refill request Reason: Clarification for medication regimen needed. Pharmacy asking for MORE specific directions, for insurance billing purposes. Next Steps: Triage to complete refill as appropriate. CURRENT PRESCRIPTION: Drug Name/Strength: One Touch Verio Test Strips Sig: Use to test daily [facility] PH: [phone] R AND SCALER documented in this encounter Plan of Treatment Not on filedocumented as of this encounter Visit Diagnoses Not on filedocumented in this encounter Care Teams Drop Hammer Pile Driver Operator Relationship Specialty Start Date End Date Colette Verma PADebiC PCP - General Physician Business Relations Manager 01/19/18 [address] [place] [address] documented as of this encounter
--- OUTSIDE RECORDS SUMMARY | 2022-05-02 10:23 | XMS_ITS | Encounter Summary ---
:1955 Author Organization [facility] Address [address] [place] [address] Care Team Providers Name Role Phone Colette Verma PA-C Primary Care Provider Reason for Visit Reason Onset Date Comments Refill 07/02/2018 Encounter Details Date Type Department Care Team Description 07/02/[address] [facility] Colette Romero PA-C Refill [address] [address] [place] [address] [place], [place] [phone] (Wo rk) Social History Tobacco Use Types [...] Provider: COLETTE VERMA Ordering User: MONSERRAT GREGG RONMENTAL COMPLIANCE MANAGER documented in this encounter Plan of Treatment Not on filedocumented as of this encounter Visit Diagnoses Not on filedocumented in this encounter Care Teams Psychiatry Instructor Relationship Specialty Start Date End Date Colette Verma, PADebiC PCP - General Physician Fireproof Door Assembler 01/19/18 [address] [place] [address] documented as of this encounter
--- OUTSIDE RECORDS SUMMARY | 2022-05-02 10:23 | XMS_ITS | Encounter Summary ---
:1955 Author Organization [employer] [facility] Address [address] [place] [address] Care Team Providers Name Role Phone Colette Verma PA-C Primary Care Provider Reason for Visit Reason Onset Date Comments Refill 11/05/2018 metFORMIN (GLUCOPHAG E) 1000 MG tablet; omeprazole (PRILOSEC) 20 MG capsule Encounter Details Date Type Department Care Team Description 11/05/2018 Refill [facility] Colette Verma, Refill (metFORMIN Medicine CARLOS (GLUCOPHAGE) 1000 MG [address] tablet; omeprazole [place], [place] [address] (PRILOSEC) 20 [place] [address] capsule) [phone] Social History Tobacco Use Types Packs/Day Years [...] (Sent to [facility]) Powered by [employer], Reference: [id number], 11/05/2018 1:21:06 PM CDT, Pool: LAKVL REFILL ([id number]) omeprazole (PRILOSEC) 20 MG capsule Medication started: [...] (Sent to [facility]) Powered by [employer], Reference: [id number], 11/05/2018 1:21:06 PM CDT, Pool: LAKVL REFILL ([id number]) documented in this encounter Plan of Treatment Not on filedocumented as of this encounter Visit Diagnoses Diagnosis Type 2 diabetes mellitus without complic ation, without long-term current use of insulin (HRC) Gastroesophageal reflux disease without esophagitis Esophageal reflux Essential hypertension (HRC) Unspecified essential hypertension documented in this encounter Care Teams Dip Brazier Relationship Specialty Start Date End Date Colette Verma PA-C PCP - General Physician Aco Coordinator 01/19/18 [address] [place] [address] documented as of this encounter
--- OUTSIDE RECORDS SUMMARY | 2022-05-02 10:23 | XMS_ITS | Encounter Summary ---
:1955 Author Organization [facility] Address [address] [place] [address] Care Team Providers Name Role Phone Colette Verma PA-C Primary Care Provider Reason for Visit Reason Comments Refill losartan (COZAAR) 25 MG tabl et [Pharmacy Med Name: LOSARTAN POTASSIUM 25 MG TAB] Encounter Details Date Type Department Care Team Description 08/04/2018 Refill [facility] Colette Verma, Refill (losartan Medicine CARLOS (COZAAR) [address] [address] [address] [Pharmacy Med Name: [place], [place] [address] LOSARTAN POTASSIUM 25 MG [address] TAB]) [phone] Social History Tobacco Use Types Packs/Day Years [...] TAKE 1 TABLET BY MOUTH EVERY DAY OVOLTAIC INSTALLER Interface, Out Surescripts Prov Query - 08/04/2018 [...] K: 4.4 mEq/L on 01/25/2018 Powered by [employer], Reference: [id number], 08/04/2018 2:16:26 AM KATIE, Ayad: FOREST REFILL ([id number]) OVOLTAIC INSTALLER documented in this encounter Plan of Treatment Not on filedocumented as of this encounter Visit Diagnoses Diagnosis Essential hypertension (HRC) Unspecified essential hypertension documented in this encounter Care Teams Bridge Crane Operator Relationship Specialty Start Date End Date Colette Verma PA-C PCP - General Physician Junior Graphic Designer 01/19/18 [address] [place], [place] [address] documented as of this encounter
--- OUTSIDE RECORDS SUMMARY | 2022-05-02 10:23 | XMS_ITS | Clinical Summary ---
:1955 Author Organization [facility] Address [address] [place] [address] Care Team Providers Name Role Phone Colette [...] for each transition of care or referral. [employer] Allergies No known active allergies Medications Medication Sig Dispensed Refills Start Date End Date Status aspirin, enteric-coated Take 81 mg by 0 Active 81 MG enteric coated mouth daily. tablet Adalimumab (HUMIRA) 40 1 shot twice a 0 Active MG/0.4ML PSKT month nystatin (MYCOSTATIN) Apply to rash 60 g 5 01/25/2018 Active 973807 UNIT/GM under breasts creamIndications: bid prn Edwige [...] Address Type Group ID Dates RISK RISK [id number] 11/15/2017-P [phone] Workers Comp ADMINISTRATION ADMINISTRATION resent [phone] SERVICES SERVICES [facility] [place] [address] CIGNA CIGNA [id number] 06/29/2017-Pr [phone] Commer cial esent [phone] IVÁN MOONEY, ASHWINI [address] Guarantor Name Account Type Relation to Date of Phone Billing Address Patient Adeola Hector Personal/Famil Self 1955 [id number] (Home) [facility] [phone] [address] (Work) Adeola Hector Personal/Famil Self [address] y (Home) [place] [phone] [place] (Work) [phone] Adeola Hector Personal/Famil Self 1955 [address] (Home) [place] [phone] [place] (Work) [phone] Adeola Hector Workers Comp Self [address] (Home) [place] [address] Adeola Hector Workers Comp Self [address] (Home) [place] [address] Care Teams Pharmacy Manager Relationship Specialty Start Date End Date Colette Verma PA-C PCP - General Physician Valet Service Attendant 01/19/18 [address] [place] [address]
--- OUTSIDE RECORDS SUMMARY | 2022-05-02 10:23 | XMS_ITS | Encounter Summary ---
:1955 Author Organization [facility] Address [address] [place] [address] Care Team Providers Name Role Phone Colette Verma PA-C Primary Care Provider Reason for Visit Reason Comments [facility] work comp paperwork Encounter Details Date Type Department Care Team Description 06/09/2018 Telephone [facility] Pablito Luque MD [facility] [address] [place] [address] (work comp paperwork) [address] [place], [place] [phone] (Wo rk) Social History Tobacco Use Types [...] here and sent to [employer]. Claim # [id number] Fax completed form to [phone] SKILLS SPECIALIST documented in this encounter Plan of Treatment Not on filedocumented as of this encounter Visit Diagnoses Not on filedocumented in this encounter Care Teams Derrick Barge Operator Relationship Specialty Start Date End Date Colette Verma PADebiC PCP - General Physician Pourer Bull Ladle 01/19/18 [address] [place] [address] documented as of this encounter
--- OUTSIDE RECORDS SUMMARY | 2022-05-02 10:23 | XMS_ITS | Encounter Summary ---
:1955 Author Organization [facility] Address [address] [facility] [place] [address] Care Team Providers Name Role Phone Colette Verma PA-C Primary Care Provider Encounter Details Date Type Department Care Team Description 12/27/2018 Notes/Orders [facility] Colette Verma Screeni ng for colon Medicine PACandice cancer [address] [facility] [address] [place] [address] [phone] Social History Tobacco Use Types Packs/Day Years [...] colon documented in this encounter Care Teams Utility Engineer Relationship Specialty Start Date End Date Colette Verma PA-C PCP - General Physician Vibration Technician 01/19/18 [address] [place] [address] documented as of this encounter
--- OUTSIDE RECORDS SUMMARY | 2022-05-02 10:24 | XMS_ITS | Encounter Summary ---
:1955 Author Organization [facility] Address [address] [facility] [place] [address] Care Team Providers Name Role Phone Colette Verma PA-C Primary Care Provider Reason for Visit Reason Comments Preop Exam 01/27/2018 DOROTHY Luque Encounter Details Date Type Department Care Team Description 01/25/2018 Pre-Op Visit [facility] Colette Verma, Preoper ative examination (Primary Dx); Medicine PA-Bill Tear of medial meniscus of right knee, c urrent, unspecified tear type, initial encounter; [address] Type 2 diabetes mellitus without complic ation, without long-term current use of insulin (HRC); [place], [place] Morbid obesit y with BMI of 40.0-44.9, adult (HRC); [address] Lucy infection of flexural skin [phone] Social History Tobacco Use Types Packs/Day Years [...] PA-C Primary care physician: Colette Verma PA-C [phone] CHIEF COMPLAINT Pre-Operative Evaluation ANTICIPATED PROCEDURE Pt will be having R knee arthroscopy with Dr. Pablito Luque on 01/27/18 at [facility]. HISTORY OF PRESENT ILLNESS Pt was working in the [employer] room in October and twisted her R knee and torn the meniscus. She waited to do the surgery until they moved up here from [place], [place]. They moved here in November to [...] a day with meals. ??? nystatin (MYCOSTATIN) 950040 UNIT/GM cream Apply to rash under breasts [...] - 01/25/2018 11:00 PM CDT Performed at [facility], [address] [place] [address] CLIA number [id number] Colette Verma PA-C LAB_1 Performing Organization Address City/State/[facility] Phon e Number PN SOFT [address] [place] [address] [phone] (ABNORMAL) Comp Metabolic Panel (01/25/2018 2:25 PM CDT) [facility] gist Method Time Signature Aspartate 33 10 [...] - 01/25/2018 5:36 PM CDT Performed at [facility], [address] [place] [address] CLIA number [id number] Colette Verma PA-C LAB_1 Performing Organization Address City/State/[facility] Code Phon e Number PN SOFT [address] [place] [address] (ABNORMAL) Complete Blood Count-No Diff (01/25/2018 2:25 PM CDT) [facility] gist Method Time Signature White Blood Cell [...] - 01/25/2018 2:27 PM CDT Performed at [facility], [address] [place] [address] CLIA number [id number] Colette Verma PA-C LAB_1 Performing Organization Address City/[facility]/ZIP Code Phon e Number PN SOFT [address] [place] [address] [phone] ECG 12 Lead Outpatient (01/25/2018 1:37 PM CDT) P athologist Signature Ventricular Rate 69 BPM MUSE GHP Atrial Rate 69 BPM MUSE GHP P-R Interval 130 ms MUSE GHP QRS Duration 84 ms MUSE GHP QT 390 ms MUSE GHP QTc 417 ms MUSE GHP P [place] 11 degrees MUSE GHP R [place] -7 degrees MUSE GHP T [place] 28 degrees MUSE GHP Specimen (Source) Anatomical [...] PA-C PN ECG ORDERABLES Performing Organization Address [facility] Phon e Number MUSE GHP [address] [place] [address] documented in this encounter Visit Diagnoses Diagnosis [...] (HRC) documented in this encounter Care Teams Service Station Equipment Mechanic Relationship Specialty Start Date End Date Colette Verma PA-C PCP - General Physician Lna 01/19/18 [address] [place] [address] documented as of this encounter
--- OUTSIDE RECORDS SUMMARY | 2022-05-02 10:24 | XMS_ITS | Encounter Summary ---
:1955 Author Organization [facility] Address [address] [place] [address] Care Team Providers Name Role Phone Colette Verma PA-C Primary Care Provider Encounter Details Date Type Department Care Team Description 02/15/[address] [facility] Type 2 diabetes mellitus [address] without complication, [place] [address] without long-term current [phone] use of insulin (HRC) Social History Tobacco [...] - 02/15/2018 5:49 PM CDT Performed at [facility], [address] [facility], [place] [address] CLIA number [id number] Colette Verma PA-C LAB_1 Performing Organization Address City/State/ZIP Code Phon e Number PN SOFT [address] [place] [address] documented in this encounter Visit Diagnoses Diagnosis Type 2 diabetes mellitus without complic ation, without long-term current use of insulin (HRC) documented in this encounter Care Teams Poultry Killer Relationship Specialty Start Date End Date Colette Verma PA-C PCP - General Physician Machinist Class B 01/19/18 [address] [place] [address] documented as of this encounter
--- OUTSIDE RECORDS SUMMARY | 2022-05-02 10:24 | XMS_ITS | Encounter Summary ---
:1955 Author Organization [facility] Address [address] [place] [address] Care Team Providers Name Role Phone Colette Verma PA-C Primary Care Provider Encounter Details Date Type Department Care Team Description 01/25/2018 Lab Visit [facility] Preoperative examination; [address] Type 2 diabetes mellitus wit hout complication, without long-term current use of insulin (HRC) [place] [address] Social History Tobacco Use [...] 11:00 PM CDT Performed at [facility], [facility] [place] [address] CLIA number [id number] Colette Verma PA-C LAB_1 Performing Organization Address City/State/ZIP Code Phon e Number PN SOFT [address] [place] [address] (ABNORMAL) Comp Metabolic Panel (01/25/2018 2:25 PM CDT) [facility] gist Method Time Signature Aspartate 33 10 [...] - 01/25/2018 5:36 PM CDT Performed at [facility], [address] [place] [address] CLIA number [id number] Colette Verma PA-C LAB_1 Performing Organization Address [facility] Phon e Number PN SOFT [address] [place] [address] (ABNORMAL) Complete Blood Count-No Diff (01/25/2018 2:25 PM CDT) [facility] gist Method Time Signature White Blood Cell [...] - 01/25/2018 2:27 PM CDT Performed at [facility], [address] [place] [address] CLIA number [id number] Colette R Bayron PA-C LAB_1 Performing Organization Address City/State/ZIP Code Phon e Number PN SOFT [address] [place] [address] documented in this encounter Visit Diagnoses Diagnosis Preoperative examination Preoperative examination, unspecified Type 2 diabetes mellitus without complic ation, without long-term current use of insulin (HRC) documented in this encounter Care Teams Retouching Operator Relationship Specialty Start Date End Date Colette Verma PA-C PCP - General Physician Pin Drafter Operator 01/19/18 [address] [place] [address] documented as of this encounter
--- OUTSIDE RECORDS SUMMARY | 2022-05-02 10:24 | XMS_ITS | Encounter Summary ---
:1955 Author Organization [facility] Address [address] [place] [address] Care Team Providers Name Role Phone Colette Verma PA-C Primary Care Provider Reason for Referral Therapies (Routine) - Closed Specialty Diagnoses / Procedures Referred By Contact Refer red To Contact Diagnoses Right knee pain, unspecified chronicity Pablito Luque MD [address] [facility] [place]ST[place]IS [address] Referral ID Status Reason Start Date Expiration Date Visits Requ ested Visits Authorized [id number] Closed 02/03/2018 04/04/2018 1 1 Scheduling Instructions [...] TER Pablito Luque MD [facility] [address] [facility] [address] [place] [address] [place] 55[address] [place] [address] [phone] (Wo rk) Social History Tobacco Use Types [...] 02/03/2018 12:34 PM CDT Valerie Valdez, nurse nurse case manager from [facility] called for operative report from 01/27/[address] Luque and for an outside order for PT so she can go closer to [place]. Order placed, and op note from 01/27/18 and order faxed to Valerie at F#[phone]. documented in this encounter Plan of Treatment Scheduled Referrals Name Type Priority Associated Diagnoses Order S chedule Physical Therapy Referral Routine Right knee pain, unspeci fied Ordered: 02/03/2018 chronicity documented as of this encounter Visit Diagnoses Diagnosis Right knee pain, unspecified chronicity - Primary documented in this encounter Care Teams Drop Tester Relationship Specialty Start Date End Date Colette Verma PA-C PCP - General Physician Gear Hobber 01/19/18 [address] [place] [address] documented as of this encounter
--- OUTSIDE RECORDS SUMMARY | 2022-05-02 10:24 | XMS_ITS | Encounter Summary ---
:1955 Author Organization [facility] Address [address] [place] [address] Care Team Providers Name Role Phone Colette Verma PA-C Primary Care Provider Reason for Visit Reason Comments LAB RESULTS Encounter Details Date Type Department Care Team Description 01/26/2018 Telephone [facility] Colette Romero PA-C LAB RESULTS [address] [address] [place] [address] [place], [place] [phone] (Wo rk) Social History Tobacco Use Types [...] on filedocumented in this encounter Care Teams Fence Installer Helper Relationship Specialty Start Date End Date Colette Verma PA-C PCP - General Physician Veterinary Parasitologist 01/19/18 [address] [place] [address] documented as of this encounter
--- OUTSIDE RECORDS SUMMARY | 2022-05-02 10:24 | XMS_ITS | Encounter Summary ---
:1955 Author Organization [facility] Address [address] [place] [address] Care Team Providers Name Role Phone Colette Verma PA-C Primary Care Provider Reason for Referral Consult/Transfer Care (Routine) - Closed Specialty Diagnoses / Procedures Referred By Contact Refer red To Contact Diagnoses Type 2 diabetes mellitus without complication, without long-term current use of insulin (HRC) Colette Verma PA-C [address] [place] [address] Referral ID Status Reason Start Date Expiration Date Visits Requ ested Visits Authorized [id number] Closed 02/15/2018 05/17/2019 1 1 Scheduling Instructions Your provider has recommended an appoint ment with Terri Conway. You may call [phone] to schedule your appoi ntment. If you do not schedule an appointment within the next 1 to 3 business days, we will call you to help arrange your appointment. We suggest you call your [employer] about your coverage and benefits for this appointment. Reason for Visit Reason Comments MEDICATION CHECK Encounter Details Date Type Department Care Team Description 02/15/2018 Office Visit Raf Gibson Colette Verma, Type 2 diabetes mellitus without complication, without long-term current use of insulin (HRC) (Primary Dx); Medicine PA-C Essential hypertension; [address] [address] [facility] Gastroesophageal reflux disease without esophagitis; [place], [place] Screen for ST D (sexually transmitted disease) [id number] [phone] Social History Tobacco Use Types Packs/Day Years [...] Allergies and Medications reviewed and updated in [facility] today. Review of Systems: Review of systems [...] Name Type Priority Associated Diagnoses [facility] Referral Routine Type 2 diabetes Ordered: [...] - 02/15/2018 5:49 PM CDT Performed at [facility], [address] [place] [address] CLIA number [id number] Colette Verma PA-C LAB_1 Performing Organization Address City/State/ZIP Code [facility] e Number PN SOFT [address] [place] [address] documented in this encounter Visit Diagnoses Diagnosis [...] (HRC) documented in this encounter Care Teams Enterprise Integration Developer Relationship Specialty Start Date End Date Colette Verma PA-C PCP - General Physician Industrial Real Estate Agent 01/19/18 [address] [place] [address] documented as of this encounter
--- OUTSIDE RECORDS SUMMARY | 2022-05-02 10:24 | XMS_ITS | Encounter Summary ---
:1955 Author Organization [facility] Address [address], [place] [address] Care Team Providers Name Role Phone Bayron Colette Pagan PA-C Primary Care Provider Reason for Visit Reason Comments Knee Pain or Injury right Encounter Details Date Type Department Care Team Description 03/09/2018 Office Visit [facility] Pablito Luque, S/P rig ht knee arthroscopy (Primary Dx); CENTER Aftercare following surgery of the [facility] [address] [facility] [address] [place] [address] [place] [address] [phone] Social History Tobacco Use Types Packs/Day Years [...] CDT Dr. Pablito Luque MD Orthopaedic Surgeon Intensive Care Anaesthetist: Karis Zaragoza Please contact Karis for all administrative questions at [phone] Physician Visual Training Aide: Va Crabtree PA-C Nurse: Randi Schultz Please contact Randi for any medical questions at [phone] Medication Requests: Prescriptions are not filled on [...] postprocedural status Aftercare [facility]care [facility] documented in this encounter Care Teams Immersion Metal Cleaner Relationship Specialty Start Date End Date Colette Verma PA-C PCP - General Physician Visual Training Aide 01/19/18 [address] [place] [address] documented as of this encounter
--- OUTSIDE RECORDS SUMMARY | 2022-05-02 10:24 | XMS_ITS | Encounter Summary ---
:1955 Author Organization [facility] Address [address] [address] Care Team Providers Name Role Phone Bayron Colette Pagan PA-C Primary Care Provider Reason for Visit Reason Comments Knee Pain or Injury right Encounter Details Date Type Department Care Team Description 05/11/2018 Office Visit [facility] Pablito Luque MD S/P arthroscopic partial medial meniscec ej (Primary Dx); CENTER [address] [place] [address] [facility] [address] [place], [place] [address] [phone] (Wo rk) Social History Tobacco Use Types [...] CST Dr. Pablito Luque MD Orthopaedic Surgeon Physician Ophthalmologist: Karis Zaragoza Please contact Karis for all administrative questions at [phone] Physician Hydrogenation Still Operator: Va Crabtree PA-C Nurse: Randi Schultz Please contact Randi for any medical questions at [phone] Medication Requests: Prescriptions are not filled on Weekends or on Weekdays after 3:00PM For all medication refills: Request a refill using [employer] or contact your Pharmacy ATIONS STAFF SPECIALIST SECURITY documented in this encounter Progress Notes Pablito [...] (b) the recordis accurate. Pablito Luque MD ATIONS STAFF SPECIALIST SECURITY documented in this encounter Plan of Treatment Not on filedocumented as of this encounter Visit Diagnoses Diagnosis S/P arthroscopic partial medial meniscec ej - Primary Follow-up examination after orthopedic s urgery Follow-up examination, following other s urgery documented in this encounter Care Teams Healthcare Specialist Relationship Specialty Start Date End Date Colette Verma PA-C PCP - General Physician Hydrogenation Still Operator 01/19/18 [address] [place] [address] documented as of this encounter
--- OUTSIDE RECORDS SUMMARY | 2022-05-02 10:24 | XMS_ITS | Encounter Summary ---
:1955 Author Organization [facility] Address [address] [place] [address] Care Team Providers Name Role Phone Bayron Colette Pagan PA-C Primary Care Provider Encounter Details Date Type Department Care Team Description 01/27/2018 Surgery [facility] Pablito Luque MD RIGHT knee arthroscopy 8[address] [facility] Driv e [address] [facility] [address] partial medial [place], [place] [address] [place], [place] meniscectomy, [address] chondroplasty [phone] (Wo rk) Social History Tobacco Use Types [...] to rash under 60 g 5 01/25 034210 UNIT/GM breasts bid prn creamIndications: Edwige infection [...] 12:00 PM CDT NAME: ADEOLA HECTOR MR#: [id number] CSN: [id number] AUTHENTICATING CLINICIAN: Pablito Luque MD CONFIRM #: [id number] LOC: 725 OPERATIVE REPORT DATE OF OPERATION: 01/27/2018 : 1955 SURGEON: Pablito Luque MD PREOPERATIVE DIAGNOSIS: Right knee medial meniscus tear. POSTOPERATIVE DIAGNOSIS: Right knee medial meniscus tear along with chondromalacia of the patella, trochlea, and medial femoral condyle. FIRST MILLING SUPERVISOR: Va Crabtree PA-C ANESTHESIA: Spinal and local. [...] in the usual sterile fashion. After a lhivh-ppg-tnt-cause, a standard superolateral, inferolateral, and inferomedial portals [...] the nursing staff. KJA:MEDQ C: R:02/01/18 11:43 CONFIRM#:[id number] documented in this encounter Plan of Treatment [...] 1435 (Given - Provider: Margaux Thornton APRN, MONOMER PURIFICATION OPERATOR) 2 g, Intravenous, Administer over 30 Min [...] Intra-op documented in this encounter Care Teams Pharmacy Stock Clerk Relationship Specialty Start Date End Date Colette Verma PA-C PCP - General Physician Carton Forming Machine Operator 01/19/18 [address] [place] [address] documented as of this encounter
--- OUTSIDE RECORDS SUMMARY | 2022-05-02 10:24 | XMS_ITS | Encounter Summary ---
:1955 Author Organization [facility] Address [address] [place] [address] Care Team Providers Name Role Phone Colette Verma PA-C Primary Care Provider Reason for Referral Procedure/Equipment (Routine) - Incomplete Specialty Diagnoses / Procedures Referred By Contact Refer red To Contact Diagnoses Surgery, elective Pablito Luque MD Procedures YASMEEN Arthroscopy Knee Rt [address] [place] [address] Referral ID Status Reason Start Date Expiration Date Visits V isits Requested Authorized [id number] Incomplete 01/25/2018 04/26/2019 1 1 Encounter Details Date Type Department Care Team Description 01/25/2018 Notes/Orders [facility] Pablito Luque MD Surgery, elective CENTER [address] [place] [address] (Primary Dx) [address] [place], [place] [address] [phone] (Wo rk) Social History Tobacco Use Types [...] states documented in this encounter Care Teams Index Editor Relationship Specialty Start Date End Date Colette Verma PA-C PCP - General Physician Electrical Helper 01/19/18 [address] [place] [address] documented as of this encounter
--- OUTSIDE RECORDS SUMMARY | 2022-05-02 10:24 | XMS_ITS | Encounter Summary ---
:[address] [facility] Address [address] [place] [address] Care Team Providers Name Role Phone Unavailable Primary Care Provider Unavailable Encounter Details Date Type Department Care Team Description 08/03/2020 Immunization Urgent Care, [facility] Rolando Cevallos En counter For COVID-19 [place], in Osmin Deras M.D. Vaccine Immunization [place], [place] [address] [place] [phone] Social History Tobacco Use Types Packs/Day Years Used Date Smoking Tobacco: Never Assessed Sex Assigned at Date Recorded Not on file documented as of this encounter Plan of Treatment Not on filedocumented as of this encounter Visit Diagnoses Diagnosis Encounter For COVID-19 Vaccine Immunizat ion documented in this encounter
--- OUTSIDE RECORDS SUMMARY | 2022-05-02 10:24 | XMS_ITS | Encounter Summary ---
:[address] [facility] Address [address] [place] [address] Care Team Providers Name Role Phone Bayron Colette Pagan PA-C Primary Care Provider Encounter Details Date Type Department Care Team Description 01/27/2018 Anesthesia Event [facility] Nasrin Carlton MD [address] [place], [place] [address] 8[address] [facility] Yossi Allen MD [address] [place], [place] [address] [place], [place] [address] Anesthesia Record Procedure Summary Procedure Name Responsible Anesthesia Start Anesthesia Stop Anesthesiologist Time Time RIGHT knee arthroscopy Nasrin Carlton 01/27/18 1431 01/27/18 1516 jose Pagan MD meniscectomy, chondroplasty (Right: Knee) Events Date Time Event Comment 01/27/2018 1326 IV plmt Shima diaz APRN, HAIRSPRING INSPECTOR 1333 IV Plmt Comp IV was placed [...] CLEO Lares CRNA Pre-existing: No; Inserted by?: HAIRSPRING INSPECTOR; Orientation: Right; Site Prep: Alcohol; Local Anesthetic: [...] 1440 documented in this encounter Care Teams Head Gauge Unit Operator Relationship Specialty Start Date End Date Colette Verma PA-C PCP - General Physician Press Operator Helper 01/19/18 [address] [place] [address] documented as of this encounter
--- OUTSIDE RECORDS SUMMARY | 2022-05-02 10:24 | XMS_ITS | Encounter Summary ---
:1955 Author Organization [facility] Address [address] [place] [address] Care Team Providers Name Role Phone Unassigned, Provider Primary Care Provider Unavailable Reason for Visit Reason Comments Knee Pain or Injury right Encounter Details Date Type Department Care Team Description 01/05/2018 Office Visit [facility] ORTHOPAEDIC Pablito Luque MD Tear of medial meniscus of right knee, u nspecified tear type, unspecified whether old or current tear, initial encounter (Primary Dx); [address] Chondromalacia, right knee [address] [place], [place] [address] [phone] (Wo rk) Social History Tobacco Use Types [...] Luque MD - 01/05/2018 3:00 PM CDT [facility] Orthopaedic [place] Consultation 01/05/2018 Chief Complaint: Right knee pain [...] weight bearing. She wasoriginally seen at a [facility] in [place]. Since she has recently moved to the [place], so she no longer works for the job she was injured at and is set to have a new job here in the [place] [facility]. The intake sheet was reviewed with the [...] knee documented in this encounter Care Teams Inner Tube Cutter Relationship Specialty Start Date End Date Unassigned, Provider PCP - General 08/30/00 01/18/[address] [place] [address] documented as of this encounter
--- OUTSIDE RECORDS SUMMARY | 2022-05-02 10:24 | XMS_ITS | Clinical Summary ---
:1955 Author Organization [facility] Address [address] [place] [address] Care Team Providers Name Role Phone Unavailable Primary Care Provider Unavailable Source Comments Patient records contain information from all sites at [facility]. For routine questions regarding patient records, call [phone] during business hours, M-F 8:00 AM - 5:00 PM Central Time. Record requests for emergency care only can be directed to [phone] at any time.[facility] Immunizations Name Administration Dates Next Due Influenza [...] Phone Address Typ e / Group Dates [facility] CHOICE [id number] 2020-Pres [phone] [address] [address] PPO PLUS ent [address] [place] [phone] (Home) MD HARITHANHCRYSTAL WILSON [address]
--- OUTSIDE RECORDS SUMMARY | 2022-05-02 10:24 | XMS_ITS | Encounter Summary ---
:1955 Author [facility] Address [address] [place] [address] [place] [address] Care Team Providers Name Role Phone Bayron Colette Pagan PA-C Primary Care Provider Reason for Visit Reason Comments Knee Problem Right Knee Encounter Details Date Type Department Care Team Description 02/08/2018 Office Visit [facility] Va Salvador, Postop check (Primary CENTER CARLOS Dx) [address] [place] [address] [place], [place] [phone] (Wo rk) Social History Tobacco Use Types [...] AM CDT Va Crabtree PA-C, ATC Physician Public Relations Manager Please contact the nurse line for all medical related questions at [phone] Medication Requests: Prescriptions are not filled on [...] as a 3/10 in severity. She discontinued [place] and takes ibuprofen as needed with relief. This is a workman's comp injury and she has not returned to work since surgery. Physical therapy is scheduled to start next week in [place]. She denies any fever, chills or shortness [...] is e-prescribed to her [facility] in [place]. We discussed concerning signs of a deep [...] surgery documented in this encounter Care Teams Screw Remover Relationship Specialty Start Date End Date Colette Verma PA-C PCP - General Physician Public Relations Manager 01/19/18 [address] [place] [address] documented as of this encounter
--- OUTSIDE RECORDS SUMMARY | 2022-05-02 10:24 | XMS_ITS | Encounter Summary ---
:1955 Author Organization [facility] Address [address] [place] [address] Care Team Providers Name Role Phone Colette Verma PA-C Primary Care Provider Encounter Details Date Type Department Care Team Description 01/27/2018 Hospital Encounter [facility] Pablito Luque MD 8[address] [facility] Ricardo e [address] [facility] [place], [place] [address] [place], [place] [phone] (Wo rk) Social History Tobacco Use Types [...] to rash under 60 g 5 01/25 611360 UNIT/GM breasts bid prn creamIndications: Edwige infection [...] 12:00 PM CDT NAME: ADEOLA HECTOR MR#: [id number] CSN: [id number] AUTHENTICATING CLINICIAN: Pablito Luque MD CONFIRM #: [id number] LOC: 725 OPERATIVE REPORT DATE OF OPERATION: 01/27/2018 : 1955 SURGEON: Pablito Luque MD PREOPERATIVE DIAGNOSIS: Right knee medial meniscus tear. POSTOPERATIVE DIAGNOSIS: Right knee medial meniscus tear along with chondromalacia of the patella, trochlea, and medial femoral condyle. FIRST CAMPUS SUPERVISOR: Va Crabtree PA-C ANESTHESIA: Spinal and [...] in the usual sterile fashion. After a ppyqo-yrs-uqf-cause, a standard superolateral, inferolateral, and inferomedial portals [...] the nursing staff. CONI:BECKY C: R:02/01/18 11:43 CONFIRM#:[id number] documented in this encounter Plan of Treatment [...] ml IVPB (COMPLETED) 1435 (Given - Provider: Magraux Thornton APRN, DIGITAL SALES REPRESENTATIVE) 2 g, Intravenous, Administer over 30 Min [...] Intra-op documented in this encounter Care Teams Brick Loader Relationship Specialty Start Date End Date Colette Verma PA-C PCP - General Physician Tea Tree Farm Worker 01/19/18 [address] [place] [address] documented as of this encounter
--- OUTSIDE RECORDS SUMMARY | 2022-05-02 10:25 | XMS_ITS | Encounter Summary ---
:1955 Author Organization [facility] Address [address] [place] [address] Care Team Providers Name Role Phone Unavailable Primary Care Provider Unavailable Reason for Referral Specialty Diagnoses / Procedures Referred By Contact Refer red To Contact Trace Renee M.D. [facility] [address] [place] [address] Referral ID Status Reason Start Date Expiration Date Visits Requ ested Visits Authorized H BOSS Encounter Details Date Type Department Care Team Description 06/29/2020 Orders Only [facility] PCP [facility] Trace Renee Jr., M.D. [address] [facility] [address] [place] [phone] (Wo rk) Social History [...]
--- OUTSIDE RECORDS SUMMARY | 2022-05-02 10:25 | XMS_ITS | Encounter Summary ---
:1955 Author Organization [facility] Address [address] [place] [address] Care Team Providers Name Role Phone Unavailable Primary Care Provider Unavailable Encounter Details Date Type Department Care Team Description 04/21/2018 Hospital Encounter Department of [facility] Drug Screen Laboratory Medicine, S, VACCINE SPECIALIST, C.N.P., [facility] [place] [address] [place] [address] [place] [address] [phone] (Wo rk) Social History Tobacco Use Types Packs/Day Years Used Date Smoking Tobacco: Never Assessed Sex Assigned at Date Recorded Not on file documented as of this encounter Plan of Treatment Not on filedocumented as of this encounter Visit Diagnoses Diagnosis Drug Screen documented in this encounter
--- OUTSIDE RECORDS SUMMARY | 2022-05-02 10:25 | XMS_ITS ---
[...] 500 mg tablet Active ? Not available TAKE ONE TABLET BY MOUTH EVERY 12 HOURS FOR 7 DAYS celecoxib 200 mg capsule Completed ? 022 [...] mg tablet Active ? Not availa ble TAKE ONE TABLET BY MOUTH ONCE DAILY metformin 1,000 mg tablet Active ? Not av ailable TAKE ONE TABLET BY MOUTH TWICE A DAY WITH MEALS omeprazole 20 mg capsule,delayed release Active ? Not available TAKE ONE CAPSULE BY MOUTH ONCE DAILY rosuvastatin 10 mg tablet Active ? Not av ailable TAKE ONE TABLET BY MOUTH ONCE DAILY [...] nformation not available Bladder 04/14/2022 CT, Urogram [facility] Radiology Department [address] [place] [address] (Work Place) Results Lab Results Date Name Specimen Result Interpretation Description Value Range Status Address ? 04/14/2022 Culture, UR ABNORMAL Final microbiology ? Fin saul [place] Urine Report [facility]: [address], [place] 04/14/2022 Urinalysis, ? Color-S Yellow ? ? [...] Daniel Pires MD: [address], [place] [address], Ph. Social History Tobacco Smoking Status Former [...]
--- OUTSIDE RECORDS SUMMARY | 2022-05-02 10:25 | XMS_ITS | Encounter Summary ---
:1955 Author Organization [facility] Address [address] [place] [address] Care Team Providers Name Role Phone Unavailable Primary Care Provider Unavailable Reason for Referral Specialty Diagnoses / Procedures Referred By Contact Refer red To Contact [facility] Outpatient [facility] [address] [place] [phone] Referral ID Status Reason Start Date Expiration Date Visits Requ ested Visits Authorized EL BUFFER Encounter Details Date Type Department Care Team Description 07/13/2020 Immunization Urgent Care, [address], in [facility] (Primary Dx) [address] [place] [phone] Social History Tobacco Use Types [...]
--- OUTSIDE RECORDS SUMMARY | 2022-05-02 10:25 | XMS_ITS | Encounter Summary ---
[...] available. Plan of Care Reminders Provider Appointments [place] [address] 05/06/2022 9:00AM Daniel Pires MD Lab Urinalysis, Dipstick 04/14/2022 [facility] ? Culture, Urine 04/14/2022 [place] [facility] Lab Referral None recorded. ? ? Procedures None recorded. ? ? Surgeries None recorded. ? ? Imaging CT, Urogram 04/14/2022 [facility] Radiology Depart ment Medications Name Start Date ? ? betamethasone, augmented 0.05 % topical cream ? APPLY TO BOTH LOWER LEGS TWO TIMES A DA Y FOR 2-3 WEEKS, THEN TWICE DAILY NEEDED FOR FLARES cefuroxime axetil 500 mg tablet ? TAKE ONE TABLET BY MOUTH EVERY 12 HOURS FOR 7 DAYS Contour Next One Meter ? USE DIRECTED [...] UR ABNORMAL Final microbiology ? Dany hughes [place] Urine Report [facility] [place]: [address], [place] 04/14/2022 Urinalysis, ? Color-S Yellow ? ? [...] nformation not available Bladder 04/14/2022 CT, Urogram [facility] Radiology Department [address] [place] [address] (Work Place) Vaccine List Vaccine Type pneumococcal polysaccharide PPV23 09/28/2020 Social History Tobacco Smoking Status Former Smoker What was the date of your most recent tobacco 04/14/2022 screening? What is your level of alcohol consumption? Moderate What is your level of caffeine consumption? Occasional Do you use any illicit or recreational drugs? N When did you quit smoking? 6-10yearssincelastcigarette Family History Relation Problem Onset Age of Age Notes Father No current problems or (No Information) N/A ( No Notes) disability Mother No current problems or (No Information) N/A ( No Notes) disability Functional Status Unknown. Past Encounters 04/14/2022 History of Malignant Neoplasm of Bladder ; Microscopic Hematuria Daniel Pires MD: [address], [place] [address], Ph. History of Present Illness Note: <div>66 [...] lt;/div><div>- s/p TUR-BT (05/26/12) - LG [place] ([place])</div><div>
</div><div>- UA - trace blood - moderate [...]
[2022-05-02 13:27] LABS: Chloride* 102 mmol/L (96-114); Potassium* 4.2 mmol/L (3.6-5.1); Sodium* 137 mmol/L (135-149)
[2022-05-02 13:30] LABS: Blood Urea Nitrogen* 19 mg/dL (7-30); Carbon Dioxide* 24 mmol/L (20-32); Creatinine* 0.8 mg/dL (0.5-1.5); Estimated Glomerular Filt Rate 81 ml/min
[2022-05-02 13:31] LABS: Calcium* 9.4 mg/dL (8.4-10.6); Glucose* 196 mg/dL (60-115)
== END 2022-05-02 10:14 | disposition home or self-care (01) ==
LOC: LONREF 10:15
PROVIDERS: PCP Family Medicine; Visit Provider Family Medicine
DX: Z01.818 Encounter for other preprocedural examination (principal)
CPT/HCPCS: 80048

== ENCOUNTER 2022-05-05 09:11 | Outpatient (CLI) | payer MEDICARE, BC, SELFPAY ==
--- OUTSIDE RECORDS SUMMARY | 2022-05-05 09:13 | XMS_ITS | Encounter Summary ---
:1955 Author Organization [email or web address] Address [address] [place] [address] Care Team Providers Name Role Phone Colette Verma PA-C Primary Care Provider Reason for Visit Reason Onset Date Comments Refill 11/05/2018 metFORMIN (GLUCOPHAG E) 1000 MG tablet; omeprazole (PRILOSEC) 20 MG capsule Encounter Details Date Type Department Care Team Description 11/05/2018 Refill [facility] Colette Verma, Refill (metFORMIN Medicine CARLOS (GLUCOPHAGE) 1000 MG [address] tablet; omeprazole [place], [place] [address] (PRILOSEC) 20 [place] [address] capsule) [phone] Social History Tobacco Use Types Packs/Day Years [...] (Sent to [facility]) Powered by [employer], Reference: [id number], 11/05/2018 1:21:06 PM CDT, Pool: LAKVL REFILL ([id number]) omeprazole (PRILOSEC) 20 MG capsule Medication started: [...] (Sent to [facility]) Powered by [employer], Reference: [id number], 11/05/2018 1:21:06 PM CDT, Pool: LAKVL REFILL ([id number]) documented in this encounter Plan of Treatment Not on filedocumented as of this encounter Visit Diagnoses Diagnosis Type 2 diabetes mellitus without complic ation, without long-term current use of insulin (HRC) Gastroesophageal reflux disease without esophagitis Esophageal reflux Essential hypertension (HRC) Unspecified essential hypertension documented in this encounter Care Teams Electrode Cleaner Relationship Specialty Start Date End Date Colette Verma PA-C PCP - General Physician Wash Oil Pump Operator Helper 01/19/18 [address] [place] [address] documented as of this encounter
--- OUTSIDE RECORDS SUMMARY | 2022-05-05 09:13 | XMS_ITS | Clinical Summary ---
:1955 Author [facility] Address [address] [place] [address] Care Team Providers Name Role Phone Colette [...] for each transition of care or referral. Upverter Allergies No known active allergies Medications Medication Sig Dispensed Refills Start Date End Date Status aspirin, enteric-coated Take 81 mg by 0 Active 81 MG enteric coated mouth daily. tablet Adalimumab (HUMIRA) 40 1 shot twice a 0 Active MG/0.4ML PSKT month nystatin (MYCOSTATIN) Apply to rash 60 g 5 01/25/2018 Active 094609 UNIT/GM under breasts creamIndications: bid prn Edwige [...] Address Type Group ID Dates RISK RISK [id number] 11/15/2017-P [phone] Workers Comp ADMINISTRATION ADMINISTRATION resent [phone] SERVICES [place] [phone] CIGNA CIGNA [id number] 06/29/2017-Pr [phone] Commer cial esent [phone] IVÁN MOONEY, ASHWINI [address] Guarantor Name Account Type Relation to Date of Phone Billing Address Patient Adeola Hector Personal/Famil Self 1955 [address] (Home) [facility] [place] [phone] [address] (Work) Adeola Hector Personal/Famil Self [address] y (Home) [place] [phone] [place] (Work) [phone] Adeola Hector Personal/Famil Self 1955 [address] y (Home) [place] [phone] [place] (Work) [phone] Adeola Hector Workers Comp Self [address] (Home) [place] [address] Adeola Hector Workers Comp Self [address] (Home) [place] [address] Care Teams Instructor Physical Relationship Specialty Start Date End Date Colette Verma PA-C PCP - General Physician Fruit And Vegetable Inspector 01/19/18 [address] [place] [address]
--- OUTSIDE RECORDS SUMMARY | 2022-05-05 09:13 | XMS_ITS | Encounter Summary ---
:1955 Author Organization [facility] Address [address] [place] [address] Care Team Providers Name Role Phone Colette Verma PA-C Primary Care Provider Encounter Details Date Type Department Care Team Description 08/08/2018 Refill Order [facility] Colette Romero PA-C [address] [facility] [address] [place] [address] [place] [address] [phone] (Wo rk) Social History Tobacco Use Types [...] Labs to be addressed at future visit. T MANAGER Interface, Out Surescripts Prov Query - 08/08/2018 8:44 AM CST SCHEDULE THE FOLLOWING: - HBA1C (PN ONLY) BY: Now (Due as of 07/24/2018 for metFORMIN (GLUCOPHAGE) 1000 MG tablet) - LAST QUALIFYING VISIT WITH COLETTE VERMA: 02/15/2018 - NEXT SCHEDULED VISIT: None - NEXT LAB APPOINTMENT: None Powered by [employer], Reference: [id number], 08/08/2018 8:44:50 AM Ayad WILSON: FOREST LIGIA ([id number]) E documented in this encounter Plan of Treatment Not on filedocumented as of this encounter Visit Diagnoses Diagnosis Encounter for long-term (current) use of medications - Primary Encounter for long-term (current) use of other medications documented in this encounter Care Teams Missile Tracking Technician Relationship Specialty Start Date End Date Colette Verma PA-C PCP - General Physician Door Glass Installer 01/19/18 [address] [place] [address] documented as of this encounter
--- OUTSIDE RECORDS SUMMARY | 2022-05-05 09:13 | XMS_ITS | Encounter Summary ---
:1955 Author Organization [facility] Address [address] [place] [address] Care Team Providers Name Role Phone Colette Verma PA-C Primary Care Provider Reason for Visit Reason Onset Date Comments Refill Refill 08/09/2018 Encounter Details Date Type Department Care Team Description 08/08/2018 Refill [facility] Colette Romero PA-C Refill; Refill [address] [address] [place] [address] [place], [place] [phone] (Wo rk) Social History Tobacco Use Types [...] Provider: COLETTE VERMA Ordering User: SUSANNE PIZANO RVISOR [employer] Interface, Out Surescripts Prov Query - 08/08/2018 [...] (Sent to [facility]) Powered by [facility], Reference: [id number], 08/08/2018 8:44:50 AM SUPERVISOR [employer], Pool: FOREST REFILL ([id number]) [employer]ISOR [employer] documented in this encounter Plan of Treatment Not on filedocumented as of this encounter Visit Diagnoses Diagnosis Type 2 diabetes mellitus without complic ation, without long-term current use of insulin (HRC) documented in this encounter Care Teams Painter Structural Steel Relationship Specialty Start Date End Date Colette Verma PA-C PCP - General Physician Beadworker 01/19/18 [address] [place] [address] documented as of this encounter
--- OUTSIDE RECORDS SUMMARY | 2022-05-05 09:13 | XMS_ITS | Encounter Summary ---
:1955 Author Organization [facility] Address [address] [place] [address] Care Team Providers Name Role Phone Colette Verma PA-C Primary Care Provider Encounter Details Date Type Department Care Team Description 11/05/2018 Refill Order [facility] Colette Romero PA-C [address] [facility]. [address] [place] [address] [place] [address] [phone] (Wo rk) Social History Tobacco Use Types [...] - NEXT LAB APPOINTMENT: None Powered by Intelligent [employer]inger[employer], Reference: [id number], 11/05/2018 1:21:06 PM CDT, Pool: FOREST LIGIA ([id number]) documented in this encounter Plan of Treatment Not on filedocumented as of this encounter Visit Diagnoses Diagnosis Encounter for long-term (current) use of medications - Primary Encounter for long-term (current) use of other medications documented in this encounter Care Teams Tailman Relationship Specialty Start Date End Date Colette Verma PA-C PCP - General Physician Principal Developer 01/19/18 [address] [place] [address] documented as of this encounter
--- OUTSIDE RECORDS SUMMARY | 2022-05-05 09:13 | XMS_ITS | Encounter Summary ---
:1955 Author Organization [facility] Address [address] [address] Care Team Providers Name Role Phone Colette Verma PA-C Primary Care Provider Encounter Details Date Type Department Care Team Description 12/27/2018 Notes/Orders [facility] Colette Verma Screeni ng for colon Medicine PACandice cancer [address] [facility] [address] [place] [address] [phone] Social History Tobacco Use Types Packs/Day Years [...] colon documented in this encounter Care Teams Gang Drill Press Operator Relationship Specialty Start Date End Date Colette Verma PA-C PCP - General Physician Porcelain Enameling Supervisor 01/19/18 [address] [place] [address] documented as of this encounter
--- OUTSIDE RECORDS SUMMARY | 2022-05-05 09:13 | XMS_ITS | Encounter Summary ---
:1955 Author Organization [facility] Address [address] [place] [address] Care Team Providers Name Role Phone Colette Verma PA-C Primary Care Provider Reason for Visit Reason Comments Refill rosuvastatin (CRESTOR) 10 MG tablet [Pharmacy Med Name: ROSUVASTATIN CALCIUM 10 MG TAB] Encounter Details Date Type Department Care Team Description 08/08/2018 Refill [facility] Colette Verma, Refill (rosuvastatin Medicine CARLOS (CRESTOR) 10 MG tablet [address] [address]. [address] [facility] [Pharmacy Med Name: [place], [place] [address] ROSUVASTATIN CALCIUM 10 [address] MG TAB]) [phone] Social History Tobacco Use Types Packs/Day Years [...] done prior to appointment, labs are pended. SURY ACCOUNTANT Colette Verma PA-C - 08/09/2018 12:33 PM [...] go over the labs also. Colette Balderrama SURY ACCOUNTANT Monserrat Gregg, RN - 08/09/2018 10:31 AM CST Further Assistance Needed on Refill from Clinician RN reviewed. Medication ordered for short term. Please advise if remote computer terminal operator supply is appropriate Last qualifying visit: [...] TAKE 1 TABLET BY MOUTH EVERY DAY SURY ACCOUNTANT Interface, Out Surescripts Prov Query - 08/08/2018 [...] (Sent to [facility]) Powered by Elephanti, Reference: [id number], 08/08/2018 8:44:50 AM TREASURY ACCOUNTANT, Pool: FOREST REFILL ([id number]) SURY ACCOUNTANT documented in this encounter Plan of Treatment Not on filedocumented as of this encounter Visit Diagnoses Diagnosis Essential hypertension (HRC) - Primary Unspecified essential hypertension Type 2 diabetes mellitus without complic ation, without long-term current use of insulin (HRC) documented in this encounter Care Teams Livestock Nutritionist Relationship Specialty Start Date End Date Colette Verma, PADebiC PCP - General Physician Assistant Child Care Teacher 01/19/18 [address] [place] [address] documented as of this encounter
--- OUTSIDE RECORDS SUMMARY | 2022-05-05 09:13 | XMS_ITS | Encounter Summary ---
:1955 Author Organization [facility] Address [address] [place] [address] Care Team Providers Name Role Phone Colette Verma PA-C Primary Care Provider Reason for Visit Reason Onset Date Comments Refill 11/05/2018 rosuvastatin (CRESTO R) 10 MG tablet; losartan (COZAAR) 25 MG tablet Encounter Details Date Type Department Care Team Description 11/05/2018 Refill [facility] Colette Verma, Refill (rosuvastatin Medicine CARLOS (CRESTOR) 10 MG tablet; [address] [address] losartan (COZAAR) 25 MG [place], [place] [address] tablet) [address] [phone] Social History Tobacco Use Types Packs/Day Years [...] (PSC), please warm transfer call to extension [phone] to discuss. If no answer at extension, [...] ordered for short term. Please advise if correction supply is appropriate Last qualifying visit: 02/15/2018 [...] (Sent to [facility]) Powered by [employer], Reference: [id number], 11/05/2018 1:21:06 PM CDT, Pool: FOREST REFILL ([id number]) rosuvastatin (CRESTOR) 10 MG tablet Medication started: [...] (Sent to [facility]) Powered by [employer], Reference: [id number], 11/05/2018 1:21:06 PM CDT, Pool: FOREST REFILL ([id number]) documented in this encounter Plan of Treatment Not on filedocumented as of this encounter Visit Diagnoses Diagnosis Essential hypertension (HRC) Unspecified essential hypertension Type 2 diabetes mellitus without complic ation, without long-term current use of insulin (HRC) documented in this encounter Care Teams Contract Project Manager Relationship Specialty Start Date End Date Colette Verma, HEAVENC PCP - General Physician Body Make Up Artist 01/19/18 [address] [place] [address] documented as of this encounter
--- OUTSIDE RECORDS SUMMARY | 2022-05-05 09:14 | XMS_ITS | Encounter Summary ---
:1955 Author Organization [facility] Address [address] [place] [address] Care Team Providers Name Role Phone Colette Verma PA-C Primary Care Provider Reason for Visit Reason Comments QUESTIONS, GENERAL work comp paperwork Encounter Details Date Type Department Care Team Description 06/09/2018 Telephone [facility] Pablito Luque MD [facility] [address] [place] [address] (work comp paperwork) [address] [place], [place] [address] [phone] (Wo rk) Social History Tobacco Use Types [...] here and sent to [employer]. Claim # [id number] Fax completed form to [phone] IC WORKER FOREMAN documented in this encounter Plan of Treatment Not on filedocumented as of this encounter Visit Diagnoses Not on filedocumented in this encounter Care Teams Maritime Guard Relationship Specialty Start Date End Date Colette Verma PADebiC PCP - General Physician Small Arms Artillery Repairer 01/19/18 [address] [place] [address] documented as of this encounter
--- OUTSIDE RECORDS SUMMARY | 2022-05-05 09:14 | XMS_ITS | Encounter Summary ---
:1955 Author Organization [facility] Address [address] [place] [address] Care Team Providers Name Role Phone Colette Verma PA-C Primary Care Provider Reason for Visit Reason Onset Date Comments Refill 05/13/2018 Encounter Details Date Type Department Care Team Description 05/13/2018 [facility] Refill [address] [address] [place] [address] [place], [place] [phone] (Wo rk) Social History Tobacco Use Types Packs/Day Years Used Date Smoking Tobacco: Former Cigarettes Quit : 01/25/2015 Smokeless Tobacco: Never Alcohol Use Standard Drinks/Week Comments Yes 0 (1 standard drink = 0.6 oz pure alcoho l) rare Sex Assigned at Date Recorded Not on file documented as of this encounter Nursing Notes Tammie Cornejo RN - 05/13/2018 2:47 PM CST Resent [facility] Geetha Martinez - 05/13/2018 1:58 PM CST Further assistance needed to complete refill request Reason: Clarification for medication regimen needed. Pharmacy asking for MORE specific directions, for insurance billing purposes. Next Steps: Triage to complete refill as appropriate. CURRENT PRESCRIPTION: Drug Name/Strength: One Touch Verio Test Strips Sig: Use to test daily [facility] PH: [phone] [facility] documented in this encounter Plan of Treatment Not on filedocumented as of this encounter Visit Diagnoses Not on filedocumented in this encounter Care Teams Maritime Pilot Relationship Specialty Start Date End Date Colette Verma PADebiC PCP - General Physician Staffing Manager 01/19/18 [address] [place] [address] documented as of this encounter
--- OUTSIDE RECORDS SUMMARY | 2022-05-05 09:14 | XMS_ITS | Encounter Summary ---
:1955 Author Organization [facility] Address [address] [place] [address] Care Team Providers Name Role Phone Unavailable Primary Care Provider Unavailable Encounter Details Date Type Department Care Team Description 04/21/2018 Hospital Encounter Department of [facility] Drug Screen Laboratory Medicine, S, COUNTY TREASURER, C.N.P., [facility], [place] [address] [place] [address] [place] [address] [phone] (Wo rk) Social History Tobacco Use Types Packs/Day Years Used Date Smoking Tobacco: Never Assessed Sex Assigned at Date Recorded Not on file documented as of this encounter Plan of Treatment Not on filedocumented as of this encounter Visit Diagnoses Diagnosis Drug Screen documented in this encounter
--- OUTSIDE RECORDS SUMMARY | 2022-05-05 09:14 | XMS_ITS | Encounter Summary ---
:1955 Author Organization [facility] Address [address] [place] [address] Care Team Providers Name Role Phone Unassigned, Provider Primary Care Provider Unavailable Reason for Visit Reason Comments Knee Pain or Injury right Encounter Details Date Type Department Care Team Description 01/05/2018 Office Visit [facility]THOP[facility]EDIC Pablito Luque MD Tear of medial meniscus of right knee, u nspecified tear type, unspecified whether old or current tear, initial encounter (Primary Dx); [address] Chondromalacia, right knee [address] [place], [place] [address] [phone] (Wo rk) Social History Tobacco Use Types [...] Luque MD - 01/05/2018 3:00 PM CDT [facility] Orthopaedic [place] Consultation 01/05/2018 Chief Complaint: Right knee pain [...] weight bearing. She wasoriginally seen at a [facility] in [place]. Since she has recently moved to the [facility], so she no longer works for the job she was injured at and is set to have a new job here in the [facility]. The intake sheet was reviewed with [...] knee documented in this encounter Care Teams Lean Engineer Relationship Specialty Start Date End Date Unassigned, Provider PCP - General 08/30/00 01/18/[address] [place] [address] documented as of this encounter
--- OUTSIDE RECORDS SUMMARY | 2022-05-05 09:14 | XMS_ITS | Encounter Summary ---
:1955 Author Organization [facility] Address [address] [place] [address] Care Team Providers Name Role Phone Colette Verma PA-C Primary Care Provider Encounter Details Date Type Department Care Team Description 02/15/2018 Lab Visit [facility] Type 2 diabetes mellitus [address] [address] without complication, [place] [address] without long-term current [phone] use of insulin (HRC) Social History Tobacco [...] 02/15/2018 5:49 PM CDT Performed at [facility] [address] [facility], [place] [address] CLIA number [id number] Colette Verma PA-C LAB_1 Performing Organization Address City/State/ZIP Code Phon e Number PN SOFT [address] [place] [address] [phone] documented in this encounter Visit Diagnoses Diagnosis Type 2 diabetes mellitus without complic ation, without long-term current use of insulin (HRC) documented in this encounter Care Teams Interactive Media Specialist Relationship Specialty Start Date End Date Colette Verma PA-C PCP - General Physician Finishing Frame Runner 01/19/18 [address] [place] [address] documented as of this encounter
--- OUTSIDE RECORDS SUMMARY | 2022-05-05 09:14 | XMS_ITS | Encounter Summary ---
:1955 Author Organization [facility] Address [address] [place] [address] Care Team Providers Name Role Phone Unavailable Primary Care Provider Unavailable Encounter Details Date Type Department Care Team Description 08/03/2020 Immunization Urgent Care, [facility] Rolando Cevallos En counter For COVID-19 [place], in [place]min Deras M.D. Vaccine Immunization [place], [place] [address] [place] [address] Social History Tobacco Use Types Packs/Day Years Used Date Smoking Tobacco: Never Assessed Sex Assigned at Date Recorded Not on file documented as of this encounter Plan of Treatment Not on filedocumented as of this encounter Visit Diagnoses Diagnosis Encounter For COVID-19 Vaccine Immunizat ion documented in this encounter
--- OUTSIDE RECORDS SUMMARY | 2022-05-05 09:14 | XMS_ITS | Encounter Summary ---
:1955 Author Organization [facility] Address [address] [place] [address] Care Team Providers Name Role Phone Unavailable Primary Care Provider Unavailable Encounter Details Date Type Department Care Team Description 02/12/2021 Orders Only [facility] PCP TH Sa pat Maldonado M.D. [address] [place], [place] [phone] (Wo rk) Social History Tobacco Use Types Packs/Day Years Used Date Smoking Tobacco: Never Assessed Sex Assigned at Date Recorded Not on file documented as of this encounter Plan of Treatment Not on filedocumented as of this encounter Visit Diagnoses Not on filedocumented in this encounter
--- OUTSIDE RECORDS SUMMARY | 2022-05-05 09:14 | XMS_ITS | Clinical Summary ---
:1955 Author Organization [facility] Address [address] [place] [address] Care Team Providers Name Role Phone Unavailable Primary Care Provider Unavailable Source Comments Patient records contain information from all sites at [facility]. For routine questions regarding patient records, call [phone] during business hours, M-F 8:00 AM - 5:00 PM Central Time. Record requests for emergency care only can be directed to [phone] at any time.[facility] Immunizations Name Administration Dates Next Due Influenza [...] Phone Address Typ e / Group Dates [facility] CHOICE [id number] 2020-Pres [phone] [address] [address] PPO PLUS ent [address] [place] [phone] (Home) [place] [address]
--- OUTSIDE RECORDS SUMMARY | 2022-05-05 09:14 | XMS_ITS | Encounter Summary ---
:1955 Author Organization [facility] Address [address] [place] [address] Care Team Providers Name Role Phone Bayron Colette Pagan PA-C Primary Care Provider Encounter Details Date Type Department Care Team Description 01/27/2018 Surgery [facility] Pablito Luque MD RIGHT knee arthroscopy [address] [facility] [address] [facility] [address] [address] partial medial [place], [place] [address] [place], [place] meniscectomy, [address] chondroplasty [phone] (Wo rk) Social History Tobacco Use Types [...] to rash under 60 g 5 01/25 [id number] UNIT/GM breasts bid prn creamIndications: Edwige infection [...] 12:00 PM CDT NAME: ADEOLA HECTOR MR#: [id number] CSN: [id number] AUTHENTICATING CLINICIAN: Pablito Luque MD CONFIRM #: [id number] LOC: 725 OPERATIVE REPORT DATE OF OPERATION: 01/27/2018 : 1955 SURGEON: Pablito Luque MD PREOPERATIVE DIAGNOSIS: Right knee medial meniscus tear. POSTOPERATIVE DIAGNOSIS: Right knee medial meniscus tear along with chondromalacia of the patella, trochlea, and medial femoral condyle. FIRST NEEDLEWORKER: Va Crabtree PA-C ANESTHESIA: Spinal and local. [...] in the usual sterile fashion. After a xxksm-xqy-kez-cause, a standard superolateral, inferolateral, and inferomedial portals [...] the nursing staff. KJA:MEDQ C: R:02/01/18 11:43 CONFIRM#:[id number] documented in this encounter Plan of Treatment [...] 1435 (Given - Provider: Margaux Thornton APRN, METHODS ANALYST DATA PROCESSING) 2 g, Intravenous, Administer over 30 Min [...] ropivacaine (NAROPIN) injection 1502 (Given - Provider: aV Crabtree PA-C) ONCE PRN, Starting Thu01/27/18 at 1502, Intra-op documented in this encounter Care Teams Dial Mounter Relationship Specialty Start Date End Date Colette Verma PA-C PCP - General Physician Gunner'S Mate 01/19/18 [address] [place] [address] documented as of this encounter
--- OUTSIDE RECORDS SUMMARY | 2022-05-05 09:14 | XMS_ITS | Encounter Summary ---
:1955 Author Organization [employer] Address [address] [place] [address] Care Team Providers Name Role Phone Colette Verma PA-C Primary Care Provider Encounter Details Date Type Department Care Team Description 01/25/2018 Lab Visit [facility] Preoperative examination; [address] [address]. Type 2 diabetes mellitus wit hout complication, without long-term current use of insulin (HRC) [place] [address] Social History Tobacco Use [...] - 01/25/2018 11:00 PM CDT Performed at [facility], [facility] [place] [address] CLIA number [id number] Colette Verma PA-C LAB_1 Performing Organization Address City/State/ZIP Code Phon e Number PN SOFT [address] [place] [phone] (ABNORMAL) Comp Metabolic Panel (01/25/2018 2:25 PM CDT) [facility] gist Method Time Signature Aspartate 33 [...] - 01/25/2018 5:36 PM CDT Performed at [facility], [address] [place] [address] CLIA number [id number] Colette Verma PA-C LAB_1 Performing Organization Address [facility] Phon e Number PN SOFT [address] [place] [address] (ABNORMAL) Complete Blood Count-No Diff (01/25/2018 2:25 PM CDT) [facility] gist Method Time Signature White Blood [...] - 01/25/2018 2:27 PM CDT Performed at [facility], [address] [place] [address] CLIA number [id number] Colette R Bayron PA-C LAB_1 Performing Organization Address City/State/ZIP Code Phon e Number PN SOFT [address] [place] [address] [phone] documented in this encounter Visit Diagnoses Diagnosis Preoperative examination Preoperative examination, unspecified Type 2 diabetes mellitus without complic ation, without long-term current use of insulin (HRC) documented in this encounter Care Teams Roll Bucker Relationship Specialty Start Date End Date Colette Verma PA-C PCP - General Physician Undercutter 01/19/18 [address] [place] [address] documented as of this encounter
--- OUTSIDE RECORDS SUMMARY | 2022-05-05 09:14 | XMS_ITS | Encounter Summary ---
:1955 Author Organization [facility] Address [address], [place] [address] Care Team Providers Name Role Phone Bayron Colette Pagan PA-C Primary Care Provider Reason for Visit Reason Comments Knee Pain or Injury right Encounter Details Date Type Department Care Team Description 03/09/2018 Office Visit [facility] Pablito Luque, S/P rig ht knee arthroscopy (Primary Dx); CENTER Aftercare following surgery of the [facility] 8[address] [facility] [address] [place] [address] [place] [address] [phone] Social History Tobacco Use Types Packs/Day Years Used Date Smoking Tobacco: Former Cigarettes Quit : 01/25/2015 Smokeless Tobacco: Never Alcohol Use Standard Drinks/Week Comments Yes 0 (1 standard drink = 0.6 oz pure alcoho l) rare Sex Assigned at Date Recorded Not on file documented as of this encounter Patient Instructions Patient InstructionsFátima Forbes, ATC - 03/09/2018 11:[address] Pabilto Luque MD Orthopaedic Surgeon Covering Machine Tender: Karis Zaragoza Please contact Karis for all administrative questions at [phone] Physician Restrike Hammer Operator: Va Crabtree PA-C Nurse: Randi Schultz Please contact Randi for any medical questions at [phone] Medication Requests: Prescriptions are not filled on [...] postprocedural status Aftercare following surgery of the [facility]care [facility] documented in this encounter Care Teams Cat Sitter Relationship Specialty Start Date End Date Colette Verma PA-C PCP - General Physician Restrike Hammer Operator 01/19/18 [address] [place] [address] documented as of this encounter
--- OUTSIDE RECORDS SUMMARY | 2022-05-05 09:14 | XMS_ITS | Encounter Summary ---
:1955 Author Organization [facility] Address [address] [place] [address] Care Team Providers Name Role Phone Colette Verma PA-C Primary Care Provider Encounter Details Date Type Department Care Team Description 07/21/2018 Notes/Orders [facility] [address] [address] [address] [place], [place] [address]- [address] [place] [address] [phone] (Wo rk) Social History Tobacco Use Types [...] on filedocumented in this encounter Care Teams Rug Setter [place] Relationship Specialty Start Date End Date Colette Verma PA-C PCP - General Physician Church Worker 01/19/18 [address] [place] [address] documented as of this encounter
--- OUTSIDE RECORDS SUMMARY | 2022-05-05 09:14 | XMS_ITS | Encounter Summary ---
:1955 Author Organization [facility] Address [address] [place] [address] Care Team Providers Name Role Phone Colette Verma PA-C Primary Care Provider Reason for Referral Therapies (Routine) - Closed Specialty Diagnoses / Procedures Referred By Contact Refer red To Contact Diagnoses Right knee pain, unspecified chronicity Pablito Luque MD [address]100 [facility] [place]AL [place] [address]43 1 Referral ID Status Reason Start Date Expiration Date Visits Requ ested Visits Authorized [id number] Closed 02/03/2018 04/04/2018 1 1 Scheduling Instructions [...] TER Pablito Luque MD QUESTIONS, GENERAL 8100 [facility] [address] [place] [address] CR[place]STAL [place] [address] [place] [address] [phone] (Wo rk) Social History Tobacco Use Types [...] 02/03/2018 12:34 PM CDT Valerie Valdez, nurse high risk case manager from [facility] called for operative report from 01/27/[address] Luque and for an outside order for PT so she can go closer to [place]. Order placed, and op note from 01/27/18 and order faxed to Valerie at F#[phone]. documented in this encounter Plan of Treatment Scheduled Referrals Name Type Priority Associated Diagnoses Order S chedule Physical Therapy Referral Routine Right knee pain, unspeci fied Ordered: 02/03/2018 chronicity documented as of this encounter Visit Diagnoses Diagnosis Right knee pain, unspecified chronicity - Primary documented in this encounter Care Teams Food Service Cashier Relationship Specialty Start Date End Date Colette Verma PA-C PCP - General Physician Freelance Copywriter 01/19/18 [address] [place] [address] documented as of this encounter
--- OUTSIDE RECORDS SUMMARY | 2022-05-05 09:14 | XMS_ITS | Encounter Summary ---
:1955 Author Organization [employer] Address [address] [place] [address] Care Team Providers Name Role Phone Colette Verma PA-C Primary Care Provider Reason for Visit Reason Comments Preop Exam 01/27/2018 DOROTHY Luque Encounter Details Date Type Department Care Team Description 01/25/2018 Pre-Op Visit [facility] Colette Verma, Preoper ative examination (Primary Dx); Medicine PA-Bill Tear of medial meniscus of right knee, c urrent, unspecified tear type, initial encounter; [address] Type 2 diabetes mellitus without complic ation, without long-term current use of insulin (HRC); [place], [place] Morbid obesit y with BMI of 40.0-44.9, adult (HRC); [address] Lucy infection of flexural skin [phone] Social History Tobacco Use Types Packs/Day Years [...] PA-C Primary care physician: Colette Verma PA-C [phone] CHIEF COMPLAINT Pre-Operative Evaluation ANTICIPATED PROCEDURE Pt will be having R knee arthroscopy with Dr. Pablito Luque on 01/27/18 at [facility]. HISTORY OF PRESENT ILLNESS Pt was working in the [employer] room in October and twisted her R knee and torn the meniscus. She waited to do the surgery until they moved up here from [place], [place]. They moved here in November to [...] a day with meals. ??? nystatin (MYCOSTATIN) 299976 UNIT/GM cream Apply to rash under breasts [...] Performed at [facility], [address] [place] [address] CLIA number [id number] Colette Verma PA-C LAB_1 Performing Organization Address City/State/[facility] Phon e Number PN SOFT [address] [place] [phone] (ABNORMAL) Comp Metabolic Panel (01/25/2018 2:25 PM CDT) [facility] gist Method Time Signature Aspartate 33 [...] - 01/25/2018 5:36 PM CDT Performed at [facility], [address] [place] [address] CLIA number [id number] Colette Verma PA-C LAB_1 Performing Organization Address City/State/[facility] Code Phon e Number PN SOFT [address] [place] [address] (ABNORMAL) Complete Blood Count-No Diff (01/25/2018 2:25 PM CDT) [facility] gist Method Time Signature White Blood [...] - 01/25/2018 2:27 PM CDT Performed at [facility], [address] [place] [address] CLIA number [id number] Colette Verma PA-C LAB_1 Performing Organization Address City/[facility]/ZIP Code Phon e Number PN SOFT [address] [place] [address] ECG 12 Lead Outpatient (01/25/2018 1:37 PM CDT) P athologist Signature Ventricular Rate 69 BPM MUSE GHP Atrial Rate 69 BPM MUSE GHP P-R Interval 130 ms MUSE GHP QRS Duration 84 ms MUSE GHP QT 390 ms MUSE GHP QTc 417 ms MUSE GHP P [place] 11 degrees MUSE GHP R [place] -7 degrees MUSE GHP T [place] 28 degrees MUSE GHP Specimen (Source) Anatomical [...] PA-C PN ECG ORDERABLES Performing Organization Address [facility] Phon e Number MUSE GHP [address] [place] [address] documented in this encounter Visit Diagnoses Diagnosis [...] (HRC) documented in this encounter Care Teams Hot Stone Setter Relationship Specialty Start Date End Date Colette Verma PA-C PCP - General Physician Dobby Loom Chain Pegger 01/19/18 [address] [place] [address] documented as of this encounter
--- OUTSIDE RECORDS SUMMARY | 2022-05-05 09:14 | XMS_ITS | Encounter Summary ---
:1955 Author Organization [facility] Address [address] [place] [address] Care Team Providers Name Role Phone Colette Verma PA-C Primary Care Provider Reason for Referral Procedure/Equipment (Routine) - Incomplete Specialty Diagnoses / Procedures Referred By Contact Refer red To Contact Diagnoses Surgery, elective Pablito Luque MD Procedures YASMEEN Arthroscopy Knee Rt [address] [place] [address] 1 Referral ID Status Reason Start Date Expiration Date Visits V isits Requested Authorized [id number] Incomplete 01/25/2018 04/26/2019 1 1 Encounter Details Date Type Department Care Team Description 01/25/2018 Notes/Orders [facility] Pablito Luque MD Surgery, elective CENTER [address] [place] [address] (Primary Dx) [address] [place], [place] [address] [phone] (Wo rk) Social History Tobacco Use Types [...] states documented in this encounter Care Teams Commercial Helicopter Pilot Relationship Specialty Start Date End Date Colette Verma PA-C PCP - General Physician [employer] 01/19/18 [address] [place] [address] documented as of this encounter
--- OUTSIDE RECORDS SUMMARY | 2022-05-05 09:14 | XMS_ITS | Encounter Summary ---
:1955 Author Organization [facility] Address [address] [facility] [place] [address] Care Team Providers Name Role Phone Colette Verma PA-C Primary Care Provider Reason for Visit Reason Comments LAB RESULTS Encounter Details Date Type Department Care Team Description 01/26/2018 Telephone [facility] Colette Romero PA-C LAB RESULTS [address] [address] [place] [address] [place], [place] [phone] (Wo rk) Social History Tobacco Use Types [...] on filedocumented in this encounter Care Teams Lens Grinder Relationship Specialty Start Date End Date Colette Verma PA-C PCP - General Physician Field Geologist 01/19/18 [address] [place] [address] documented as of this encounter
--- OUTSIDE RECORDS SUMMARY | 2022-05-05 09:14 | XMS_ITS | Encounter Summary ---
:1955 Author Organization [facility] Address [address] [place] [address] Care Team Providers Name Role Phone Colette Verma PA-C Primary Care Provider Reason for Visit Reason Onset Date Comments Refill 07/02/2018 Encounter Details Date Type Department Care Team Description 07/02/2018 Refill [facility] Colette Romero PA-C Refill [address]. [address] [place] [address] [place], [place] [phone] (Wo rk) Social History Tobacco Use Types [...] Provider: COLETTE VERMA Ordering User: MONSERRAT GREGG STRY ANALYST documented in this encounter Plan of Treatment Not on filedocumented as of this encounter Visit Diagnoses Not on filedocumented in this encounter Care Teams Dispatcher Ship Pilot Relationship Specialty Start Date End Date Colette Verma, PADebiC PCP - General Physician Summer Child Caregiver 01/19/18 [address] [place] [address] documented as of this encounter
--- OUTSIDE RECORDS SUMMARY | 2022-05-05 09:14 | XMS_ITS | Encounter Summary ---
:1955 Author Organization [facility] Address [address] [place] [address] Care Team Providers Name Role Phone Colette Verma PA-C Primary Care Provider Encounter Details Date Type Department Care Team Description 01/27/2018 Hospital Encounter [facility] Pablito Luque MD 8100 [facility] Ricardo e 8100 [facility] [place], [place] [address] [place], [place] [phone] (Wo rk) Social History Tobacco Use Types [...] to rash under 60 g 5 01/25 573847 UNIT/GM breasts bid prn creamIndications: Edwige infection [...] 12:00 PM CDT NAME: ADEOLA HECTOR MR#: [id number] CSN: [id number] AUTHENTICATING CLINICIAN: Pablito Luque MD CONFIRM #: [id number] LOC: 725 OPERATIVE REPORT DATE OF OPERATION: 01/27/2018 : 1955 SURGEON: Pablito Luque MD PREOPERATIVE DIAGNOSIS: Right knee medial meniscus tear. POSTOPERATIVE DIAGNOSIS: Right knee medial meniscus tear along with chondromalacia of the patella, trochlea, and medial femoral condyle. FIRST SMOKE CONTROL SUPERVISOR: Va Crabtree PA-C ANESTHESIA: Spinal and [...] in the usual sterile fashion. After a aeqxz-bfw-feq-cause, a standard superolateral, inferolateral, and inferomedial portals [...] the nursing staff. CONI:BECKY C: R:02/01/18 11:43 CONFIRM#:[id number] documented in this encounter Plan of Treatment [...] 1435 (Given - Provider: Margaux Thornton APRN, HEAT TREAT SUPERVISOR) 2 g, Intravenous, Administer over 30 Min [...] Intra-op documented in this encounter Care Teams Software Intern Relationship Specialty Start Date End Date Colette Verma PA-C PCP - General Physician Digital Business Analyst 01/19/18 [address] [place] [address] documented as of this encounter
--- OUTSIDE RECORDS SUMMARY | 2022-05-05 09:14 | XMS_ITS | Encounter Summary ---
:1955 Author Organization [facility] Address [address] [facility] [facility] [place] [address] Care Team Providers Name Role Phone Colette Verma PA-C Primary Care Provider Reason for Visit Reason Comments Refill losartan (COZAAR) 25 MG tabl et [Pharmacy Med Name: LOSARTAN POTASSIUM 25 MG TAB] Encounter Details Date Type Department Care Team Description 08/04/2018 Refill [facility] Colette Verma, Refill (losartan Medicine CARLOS (COZAAR) 25 MG [address] [address] [facility] [address] [Pharmacy Med Name: [place], [place] [address] LOSARTAN POTASSIUM 25 MG [id number] TAB]) [phone] Social History Tobacco Use Types Packs/Day Years [...] TAKE 1 TABLET BY MOUTH EVERY DAY ARCH CHEF Interface, Out Surescripts Prov Query - 08/04/2018 [...] K: 4.4 mEq/L on 01/25/2018 Powered by [employer], Reference: [id number], 08/04/2018 2:16:26 AM KATIE, Ayad: FOREST REFILL ([id number]) ARCH CHEF documented in this encounter Plan of Treatment Not on filedocumented as of this encounter Visit Diagnoses Diagnosis Essential hypertension (HRC) Unspecified essential hypertension documented in this encounter Care Teams Managed Care Coordinator Relationship Specialty Start Date End Date Colette Verma PA-C PCP - General Physician Optical Goods Drill Operator 01/19/18 [address] [place], [place] [address] documented as of this encounter
--- OUTSIDE RECORDS SUMMARY | 2022-05-05 09:14 | XMS_ITS | Encounter Summary ---
:1955 Author Organization [facility] Address [address] [place] [address] Care Team Providers Name Role Phone Bayron Colette Pagan PA-C Primary Care Provider Encounter Details Date Type Department Care Team Description 01/27/2018 Anesthesia Event [facility] Nasrin Carlton MD [address] [place], [place] [address] 8100 [facility] Yossi Allen MD [address] [place], [place] [address] [place], [place] [address] Anesthesia Record Procedure Summary Procedure Name Responsible Anesthesia Start Anesthesia Stop Anesthesiologist Time Time RIGHT knee arthroscopy Nasrin Carlton 01/27/18 1431 01/27/18 1516 jose Pagan MD meniscectomy, chondroplasty (Right: Knee) Events Date Time Event Comment 01/27/2018 1326 IV plmt Shima diaz APRN, DROP HAMMER SETTER UP 1333 IV Plmt Comp IV was placed [...] CLEO Lares CRNA Pre-existing: No; Inserted by?: DROP HAMMER SETTER UP; Orientation: Right; Site Prep: Alcohol; Local Anesthetic: [...] 1440 documented in this encounter Care Teams Tub Operator Relationship Specialty Start Date End Date Colette Verma PA-C PCP - General Physician Flight Attendant 01/19/18 [address] [place] [address] documented as of this encounter
--- OUTSIDE RECORDS SUMMARY | 2022-05-05 09:14 | XMS_ITS | Encounter Summary ---
:1955 Author Organization [facility] Address [address] [place] [address] Care Team Providers Name Role Phone Unavailable Primary Care Provider Unavailable Reason for Referral Specialty Diagnoses / Procedures Referred By Contact Refer red To Contact Trace Renee M.D. [facility] [address] [place] [address] Referral ID Status Reason Start Date Expiration Date Visits Requ ested Visits Authorized R AND WASHER MECHANIC Encounter Details Date Type Department Care Team Description 06/29/[address] [facility] PCP [facility] Trace Renee Jr., M.D. [address] [place] [address] [facility] [address] [place] [phone] (Wo rk) Social History [...]
--- OUTSIDE RECORDS SUMMARY | 2022-05-05 09:14 | XMS_ITS | Encounter Summary ---
:1955 Author Organization [facility] Address [address] [place] [address] [place] [address] Care Team Providers Name Role Phone aByron Colette Pagan PA-C Primary Care Provider Reason for Visit Reason Comments Knee Problem Right Knee Encounter Details Date Type Department Care Team Description 02/08/2018 Office Visit [facility] Va Salvador, Postop check (Primary CENTER CARLOS Dx) [address] [place] [address] [place], [place] [phone] (Wo rk) Social History Tobacco Use Types [...] AM CDT Va Crabtree PA-C, ATC Physician Field Technical Assistant Please contact the nurse line for all medical related questions at [phone] Medication Requests: Prescriptions are not filled on [...] as a 3/10 in severity. She discontinued [place] and takes ibuprofen as needed with relief. This is a workman's comp injury and she has not returned to work since surgery. Physical therapy is scheduled to start next week in [place]. She denies any fever, chills or shortness [...] is e-prescribed to her [facility] in [place]. We discussed concerning signs of a deep [...] surgery documented in this encounter Care Teams Fitness Instructor Relationship Specialty Start Date End Date Colette Verma PA-C PCP - General Physician Field Technical Assistant 01/19/18 [address] [place] [address] documented as of this encounter
--- OUTSIDE RECORDS SUMMARY | 2022-05-05 09:14 | XMS_ITS | Encounter Summary ---
:1955 Author Organization [facility] Address [address] [address] Care Team Providers Name Role Phone Bayron Colette Pagan PA-C Primary Care Provider Reason for Visit Reason Comments Knee Pain or Injury right Encounter Details Date Type Department Care Team Description 05/11/2018 Office Visit [facility] Pablito Luque MD S/P arthroscopic partial medial meniscec ej (Primary Dx); CENTER [address] [place] [address] Follow-up examination after [facility] [address] [place], [place] [address] [phone] (Wo rk) Social History Tobacco Use Types Packs/Day Years Used Date Smoking Tobacco: Former Cigarettes Quit : 01/25/2015 Smokeless Tobacco: Never Alcohol Use Standard Drinks/Week Comments Yes 0 (1 standard drink = 0.6 oz pure alcoho l) rare Sex Assigned at Date Recorded Not on file documented as of this encounter Patient Instructions Patient InstructionsFátima oFrbes, ATC - 05/11/2018 11:[address] Pabliot Luque MD Orthopaedic Surgeon Reading Coach: Karis Zaragoza Please contact Karis for all administrative questions at [phone] Physician Balance Staff Staker: Va Crabtree PA-C Nurse: Randi Schultz Please contact Randi for any medical questions at [phone] Medication Requests: Prescriptions are not filled on Weekends or on Weekdays after 3:00PM For all medication refills: Request a refill using onefinestayt or contact your Pharmacy [employer] documented in this encounter Progress Notes Pablito [...] (b) the recordis accurate. Pablito Luque MD [employer] documented in this encounter Plan of Treatment Not on filedocumented as of this encounter Visit Diagnoses Diagnosis S/P arthroscopic partial medial meniscec ej - Primary Follow-up examination after orthopedic s urgery Follow-up examination, following other s urgery documented in this encounter Care Teams Parts Clerk Relationship Specialty Start Date End Date Colette Verma PA-C PCP - General Physician Balance Staff Staker 01/19/18 [address] [place] [address] documented as of this encounter
--- OUTSIDE RECORDS SUMMARY | 2022-05-05 09:14 | XMS_ITS | Encounter Summary ---
:1955 Author Organization [facility] Address [address] [place] [address] Care Team Providers Name Role Phone Colette Verma PA-C Primary Care Provider Reason for Visit Reason Onset Date Comments Medication Questions 05/12/2018 Encounter Details Date Type Department Care Team Description 05/12/2018 Telephone [facility] Colette Verma, Medicat ion Questions Medicine CARLOS [address] [address] [place], [place] [id number] [phone] Social History Tobacco Use Types Packs/Day Years [...] strips she uses. States she moved to [place] the end of November. Has a One Touch Verio, is almost out of strips. Requested Prescriptions Signed Prescriptions Disp Refills ??? blood glucose (ONETOUCH VERIO) test strip 100 Strip 1 Sig: Use to test daily. Use as directed. Pharmacy dispense brand based on insurance. Authorizing Provider: COLETTE VERMA Ordering User: HARITHA JAIME OV 02/15/18 DIVER Mai Roman - 05/12/2018 10:12 AM CST Further assistance needed to complete refill request Reason: Clarification for medication regimen needed. Pharmacy asking for specific directions, for insurance billing purposes. Next Steps: Triage to complete refill as appropriate. CURRENT PRESCRIPTION: Drug Name/Strength: blood glucose test strip Sig: Use ??to test as needed for Blood Sugar >. Use as directed. Pharmacy dispense brand based oninsurance. DIVER documented in this encounter Plan of Treatment Not on filedocumented as of this encounter Visit Diagnoses Not on filedocumented in this encounter Care Teams 911 Emergency Dispatcher Relationship Specialty Start Date End Date Colette Verma PA-C PCP - General Physician Oil Dispatcher 01/19/18 [address] [place] [address] documented as of this encounter
--- OUTSIDE RECORDS SUMMARY | 2022-05-05 09:14 | XMS_ITS | Encounter Summary ---
:1955 Author Organization [email or web address] Address [address] [address] Care Team Providers Name Role Phone Colette Verma PA-C Primary Care Provider Reason for Referral Consult/Transfer Care (Routine) - Closed Specialty Diagnoses / Procedures Referred By Contact Refer red To Contact Diagnoses Type 2 diabetes mellitus without complication, without long-term current use of insulin (HRC) Colette Verma PA-C [address] [place] [address] Referral ID Status Reason Start Date Expiration Date Visits Requ ested Visits Authorized [id number] Closed 02/15/2018 05/17/2019 1 1 Scheduling Instructions Your provider has recommended an appoint ment with Terri Conway. You may call [phone] to schedule your appoi ntment. If you do not schedule an appointment within the next 1 to 3 business days, we will call you to help arrange your appointment. We suggest you call your [employer] insurance Quote Roller about your coverage and benefits for this appointment. Reason for Visit Reason Comments MEDICATION CHECK Encounter Details Date Type Department Care Team Description 02/15/2018 Office Visit [facility] Gibson Colette Verma, Type 2 diabetes mellitus without complication, without long-term current use of insulin (HRC) (Primary Dx); Medicine PA-C Essential hypertension; [address] [address] [facility] Gastroesophageal reflux disease without esophagitis; [place], [place] Screen for ST D (sexually transmitted disease) [id number] [phone] Social History Tobacco Use Types Packs/Day Years [...] Allergies and Medications reviewed and updated in [facility] today. Review of Systems: Review of [...] Name Type Priority Associated Diagnoses [facility] Referral Routine Type 2 diabetes Ordered: [...] [facility], [address] [place] [address] CLIA number [id number] Colette Verma PA-C LAB_1 Performing Organization Address City/State/ZIP Code [facility] e Number PN SOFT [address] [place] [address] documented in this encounter Visit Diagnoses Diagnosis [...] (HRC) documented in this encounter Care Teams Tube Trailer Filler Relationship Specialty Start Date End Date Colette Verma PA-C PCP - General Physician Sparmaker 01/19/18 [address] [place] [address] documented as of this encounter
--- OUTSIDE RECORDS SUMMARY | 2022-05-05 09:14 | XMS_ITS ---
[...] nformation not available Bladder 04/14/2022 CT, Urogram [facility] Radiology Department [address] [place] [address] (Work Place) Results Lab Results Date Name Specimen Result Interpretation Description Value Range Status Address ? 04/14/2022 Culture, UR ABNORMAL Final microbiology ? Fin saul [place] U[facility]: [address], [place] 04/14/2022 Urinalysis, ? Color-S Yellow ? ? [...] Daniel Pires MD: [address], [place] [address], Ph. Social History Tobacco Smoking Status Former [...]
--- OUTSIDE RECORDS SUMMARY | 2022-05-05 09:14 | XMS_ITS | Encounter Summary ---
:1955 Author Organization [facility] Address [address] [place] [address] Care Team Providers Name Role Phone Unavailable Primary Care Provider Unavailable Reason for Referral Specialty Diagnoses / Procedures Referred By Contact Refer red To Contact [facility] [address] [place] [phone] Referral ID Status Reason Start Date Expiration Date Visits Requ ested Visits Authorized TENDER Encounter Details Date Type Department Care Team Description 07/13/2020 Immunization Urgent Care, [address], in [facility] (Primary Dx) [address] [place] [phone] Social History Tobacco Use Types [...]
--- OUTSIDE RECORDS SUMMARY | 2022-05-05 09:15 | XMS_ITS | Encounter Summary ---
[...] available. Plan of Care Reminders Provider Appointments [place] [address] 05/06/2022 9:00AM Daniel Pires MD Lab Urinalysis, Dipstick 04/14/2022 [facility] ? Culture, Urine 04/14/2022 [place] [facility] Lab Referral None recorded. ? ? Procedures None recorded. ? ? Surgeries None recorded. ? ? Imaging CT, Urogram 04/14/2022 [facility] Radiology Depart ment Medications Name Start Date [...] UR ABNORMAL Final microbiology ? Dany hughes [place] U[facility] [place]: [address], [place] 04/14/2022 Urinalysis, ? Color-S Yellow ? ? [...] nformation not available Bladder 04/14/2022 CT, Urogram [facility] Radiology Department [address] [place] [address] (Work Place) Vaccine List Vaccine [...] Daniel Pires MD: [address], [place] [address], Ph. History of Present Illness Note: <div>66 [...] lt;/div><div>- s/p TUR-BT (05/26/12) - LG Ta ([place])</div><div>
</div><div>- UA - trace blood - moderate [...]
[2022-05-05 14:22] LABS: SARS PCR* Negative SARS-CoV-2 (Negative)
== END 2022-05-05 09:12 | disposition home or self-care (01) ==
LOC: LONREF 09:11
PROVIDERS: PCP Family Medicine; Visit Provider Family Medicine
DX: Z20.822 Contact with and (suspected) exposure to COVID-19 (principal); Z01.818 Encounter for other preprocedural examination
CPT/HCPCS: 87635

== ENCOUNTER 2023-01-02 09:12 | Outpatient (CLI) | payer MEDICARE, BC, SELFPAY | END 2023-01-02 09:13 | disposition home or self-care (01) | PROVIDERS: PCP Family Medicine; Visit Provider Family Medicine | DX: E78.5 Hyperlipidemia, unspecified (principal); I10 Essential (primary) hypertension; E66.01 Morbid (severe) obesity due to excess calories | CPT/HCPCS: 80048; 80061 ==

== ENCOUNTER 2023-01-19 12:54 | Outpatient (CLI) | payer MEDICARE, BC, SELFPAY ==
--- NOTE | 2023-01-19 13:40 | CRLHL7_ITS ---
For Patients: As a result of the Cures Act, medical imaging exams and procedure reports are released immediately into your electronic medical record. You may view this report before your referring provider. If you have questions, please contact your health care provider. BILATERAL SCREENING MAMMOGRAM WITH COMPUTER-AIDED DETECTION AND TOMOSYNTHESIS TECHNIQUE: CC and MLO views were obtained. These mammographic images have been obtained using full-field digital technique. These mammographic images were interpreted with the benefit of computer-aided detection. Breast tomosynthesis was used in this interpretation. COMPARISON FILM: 01/07/22, 12/21/20, 12/21/19. FINDINGS: There are scattered areas of fibroglandular density. IMPRESSION: There is no radiographic evidence for malignancy. ASSESSMENT: BI-RADS Category 2: Benign RECOMMENDATION: Routine screening mammogram in 1 year. A lay language report of this examination will be provided to the patient. BEN BENEDICT M.D. Diagnostic Radiologist [email or web address] Transcribed: 01/20/2023, 6:[address]/Dictated by: Ben Benedict MD @ 01/20/2023 9:18:00 AM (Electronically Signed)
== END 2023-01-19 12:55 | disposition home or self-care (01) ==
LOC: MAMMO 12:55
PROVIDERS: PCP Family Medicine; Visit Provider Family Medicine
DX: Z12.31 Encounter for screening mammogram for malignant neoplasm of breast (principal)
CPT/HCPCS: 77063; 77067

== ENCOUNTER 2023-01-26 11:15 | Outpatient (RCR) | payer MEDICARE, BC, SELFPAY ==
--- NOTE | 2023-01-05 09:49 | PT.OPEX ---
PT [place] Outpatient Eval PT [facility] Outpatient Eval Start: 01/05/23 08:47 Freq: Status: Active Protocol: Document 01/05/23 08:47 KLBridget (Rec: 01/05/23 09:47 KLV [id number]) E-signed By Mikki Fischer, PT Physical Therapy Outpatient Evaluation Insurance Information Recert Due Date 04/01/23 Insurance Name Medicare B,Blue Cross/Blue Shield Medical Diagnosis Right greater trochanteric bursitis Treating Diagnosis Right hip pain, limited hip ROM, gross R LE weakness Referring Pramod Laird Subjective Subjective Adeola reports to PT with primary complaint of R hip pain with initial gradual and insidious onset about 5-6 years. Pain is located on lateral aspect of the hip. Does not radiate down the leg. She notes previous R knee injury with scope in 2018 however her hip was bothering her prior to this. Also of note is bladder cancer which she has subsequently been following up on. She has been prescribed celebrex but mainly manages pain with ibuprofen. She has tried heat. Was advised to try ice but has not tried this yet. 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 X-ray: mild-moderate osteoarthrosis right hip seen best on lateral radiograph anteriorly seen as joint space narrowing and subchondral sclerosis. On the AP pelvis radiograph the dip joint space appears well preserved. Otherwise, no acute fractures, avulsions, or intraosseous pathology. No signs of AVN. 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 Objective Other/Pertinent Objective LE ROM (R/L): no pain with PROM today -Hip Ext: 5/10 -Hip Flx: 100/100 -Hip ER: 45/45 -Hip IR: 10 Abran test: - Derek test: + R SL balance: more difficult R LE with trendelenburg Squat: genu valgus R, NBOS Sit to stand: genu valgus R LE LE Strength (R/L): -Hip Abd: R: 4/5, L: 5/5 -Hip Add: R: 5/5, L: 5/5 -Hip Ext: R: 4/5, L: 5/5 -Hip Flx: R: 5/5, L: 5/5 -Hip ER: R: 5/5, L: 5/5 Functional Test Performed & Score LEFS: 73/80 Assessment Assessment/Impression Patient is a 67 year old female presenting to physical therapy for evaluation and treatment of right hip pain. Patient presents with right hip pain, limited hip ROM (ITB restriction), gross R LE weakness (glut med). These impairments are limiting the patients ability to walk longer distances outside and stand for 8 hour work shift. Patient appears motivated to participate in PT and presents with good prognosis to improve mobility, strength, proprioception and return to functional activities with skilled physical therapy intervention. Primary Functional Limitations Walking >2 blocks outside, standing during 8 hour work shift Plan of Care Rehabilitation Potential Good Physical Therapy Goals In 6 weeks (02/16/23) Patient will be able to stand for >4 hours with <1/10 hip pain in order to improve 1/2 day work shift Pt will be able to walk >1/2 mile with <1/10 hip pain in order to walk for cardiovascular health In 12 weeks (03/30/23) Pt will exhibit 9 pt improvement in LEFS Outcome measure to demonstrate functional improvement and progress towards goals. Pt will demonstrate 5/5 strength MMT in glut max & glut med to improve dynamic control with SLS activities and gait. Patient will be able to stand for >8 hours with <1/10 hip pain in order to improve ability to stand for work shift Pt will be able to walk >1 mile with <1/10 hip pain in order to walk for cardiovascular health Treatment Plan/Direct Interventions Gait Training,Ice/Cold/ Vasopneumatic,Joint Mobilization,Manual Therapy, Neuromuscular Re-ed,Self-Care/ Home Management,Therapeutic Activities,Therapeutic Exercises Frequency/Duration 1x/wk for 4 weeks with additional 2-4 sessions prn based on progress Patient Will Be Discharged From Therapy Completion of LTG(s), Independent w/HEP, Independently Progressing Evaluation Billing Untimed Code Treatment Minutes 15 Complexity Low Certification Information Initial Certification Date 01/05/23 Ending Certification Date 04/01/23 Provider Signature Shows Agreement With POC & Medical Necessity Physician Signature & Date Requested Please Sign/Date Here Physician Comment/Change : Physician NPI Number #
== END 2023-05-26 23:59 | disposition home or self-care (01) ==
PROVIDERS: PCP Family Medicine; Visit Provider Physician Assistant Surgical
DX: M70.61 Trochanteric bursitis, right hip (principal); Z51.89 Encounter for other specified aftercare
CPT/HCPCS: 77063; 77067; 97110; 97140; 97161

== ENCOUNTER 2023-07-15 12:06 | Outpatient (CLI) | payer MEDICARE, BC, SELFPAY ==
--- OUTSIDE RECORDS SUMMARY | 2023-07-15 12:09 | XMS_ITS | Clinical Summary ---
Author Name Unknown Organization [facility] Address [address] [place] [address] Care Team Providers Care Cruise Agent Name Role Phone Colette Verma PA-C Primary Care Provider [phone] Source Comments You are receiving this document as you are listed as the primary care provider,follow-up provider, or the patient has been referred to you for consultation.This is in compliance with the Medicare and[facility] EHR Incentive Program,which states Providers who transition their patient to another setting of careor provider of care or refers their patient to another provider of care shouldprovide summary care record for each transition of care or referral. [facility] Allergies No known active allergies Medications Medication Sig Dispensed Refills Start Date End Date Status aspirin, enteric-coated 81 MG enteric coated tablet Take 81 mg by mouth daily. 0 Active Adalimumab (HUMIRA) 40 MG/0.4ML PSKT 1 shot twice a month 0 Active nystatin (MYCOSTATIN) 492999 UNIT/GM creamIndications:Cand katya infection of flexural skin Apply to rash under breasts bid prn 60 g 5 01/25/2018 Active blood glucose (ACCU-CHEK CARLY PLUS) test strip Use to test daily. ICD 10 - E11.9 100 Strip 3 07/02/2018 Active ACCU-CHEK CARLY PLUS meter Use to test daily. DX CODE: E11.9 1 Each 0 07/02/2018 Active lancets (ACCU-CHEK FASTCLIX) Use to test daily. ICD 10 - E11.9 100 Each 3 07/02/2018 Active metFORMIN (GLUCOPHAGE) 1000 MG tabletIndications:Typ e 2 diabetes mellitus without complication, without long-term current use of insulin (HRC) TAKE 2 TABS BY MOUTH TWICE DAILY WITH FOOD 360 Tablet 0 08/09/2018 Active rosuvastatin (CRESTOR) 10 MG tabletIndications:Typ e 2 diabetes mellitus without complication, without long-term current use of insulin (HRC) Take 1 Tablet by mouth daily. 30 Tablet 0 11/05/2018 Active omeprazole (PRILOSEC) 20 MG capsuleIndications:Ga stroesophageal reflux disease without esophagitis Take 1 Capsule by mouth daily. Take 1 hour before a meal. 90 Capsule 1 11/08/2018 Active losartan (COZAAR) 25 MG tabletIndications:Ess ential hypertension (HRC) Take 1 Tablet by mouth daily. 30 Tablet 0 11/05/2018 Active Active Problems Problem Noted Date Diagnosed Date Type 2 diabetes mellitus wit hout complication, without long-term current use of insulin 01/25/2018 Morbid obesity with BMI of 40.0-44.9, adult 12/29 Psoriasis 01/25/2018 Gastroesophageal reflux disease without esophagi tis 01/25/2018 Hx of bladder cancer 01/25/2018 Essential hypertension 01/25/2018 Edwige infection of flexural skin 01/25/2018 Family History Medical History Relation Name Comments Diabetes Father Heart Disease Father Alzheimer's Mother No Known Problems Son Natanael Relation Name Status Comments Father Mother Alive Son Natanael Alive Social History Tobacco Use Types Packs/Day Years Used Date Smoking Tobacco: Former Cigarettes Q uit: 01/25/2015 Smokeless Tobacco: Never Alcohol Use Standard Drinks/Week Comments Yes 0 (1 standard drink = 0.6 oz pur e alcohol) rare Sex and Gender Information Value Date Recorded Sex Assigned at Not on file Gender Identity Not on file Sexual Orientation Not on file Last Filed Vital Signs [...] 163.8 cm (5' 4.49) 01/27/2018 1:00 PM CD T Body Mass Index 41.59 01/27/2018 1:00 PM CDT Plan of Treatment Health Maintenance Due Date Last Done Comments Colon Cancer Screening Plan Due 1955 Diabetes: Eye Exam 1955 Diabetes: Foot Exam 1955 Diabetes: Lipid Panel 1955 Hep C Screening (Preventive Services) 1955 COVID-19 Vaccine (#1) 01/17/1956 Adult Preventive Visit 1973 Zoster/Shingles (1 of 2) 2005 Diabetes: HGBA1C 04/27/2018 01/25/2018 Mammogram 05/12/2018 05/12/2017 (Completed) Diabetes: Creatinine 01/25/2019 01/25/2018 Diabetes: Urine Microalbumin 02/15/2019 02/15/2018 Pneumococcal 65+ Yrs (2 - PCV) 09/28/2021 09/28/2020 Influenza (#1) 2023 04/17/2020, 1012/2018, 06/01/2017, Additional history exists DTaP/Tdap/Td (2 - Tdap) 06/09/2024 06/09/2014 HepA Aged Out No longer eligi ble based on patient's age to complete this topic HepB Aged Out No longer eligi ble based on patient's age to complete this topic Hib Aged Out No longer eligi ble based on patient's age to complete this topic IPV (Polio) Aged Out No longer eligi ble based on patient's age to complete this topic MCV4 Aged Out No longer eligi ble based on patient's age to complete this topic Care Teams Cruise Agent Relationship Specialty Start Date End Date Colette Verma PA-C [address] [place] [address] PCP - General Physician Punch Press Operator Helper 01/19/18
--- OUTSIDE RECORDS SUMMARY | 2023-07-15 12:10 | XMS_ITS | Clinical Summary ---
Author Name Unknown Organization [facility] Address [place], [place] [address] Care Team Providers Care Rehabilitation Engineer Name Role Phone Kevin Rueda MD Primary Care Provider [phone] Allergies Active Allergy Reactions Criticality Noted Date Comments Cephalexin Diarrhea 12/27/2015 Nausea; vomiting Lisinopril Cough 08/13/2016 Medications Medication Sig Dispensed Refills Start Date End Date Status metFORMIN (GLUCOPHAGE) 1,000 mg tablet Take 1,000 mg by mouth two times daily with meals. 0 02/12/2022 Active omeprazole (PRILOSEC) 20 mg Delayed-Release capsule Take 20 mg by mouth. 0 03/05/2022 Acti ve aspirin (ECOTRIN) 81 mg enteric coated tablet Take 81 mg by mouth. 0 A ctive losartan (COZAAR) 25 mg tablet Take 25 mg by mouth once daily. 0 04/12/2022 Active rosuvastatin (CRESTOR) 10 mg tablet Take 10 mg by mouth once daily. 0 04/12/2022 Active glipiZIDE extended-release (GLUCOTROL XL) 5 mg Extended-Release tablet Take 5 mg by mouth. 0 01/30/2022 Activ e risankizumab-rzaa (Skyrizi) 150mg/1.66mL(75 mg/0.83 mL x2) sykt Skyrizi 150 mg/1.66 mL(75 mg/0.83 mL x 2) subcutaneous syringe kit Inject by subcutaneous route. 0 Active oxyCODONE-acetamin ophen (PERCOCET) 5-325 mg per tabletIndications: Post-operative state Take 1-2 Tablets by mouth every 6 hours if needed for Pain. Max acetaminophen dose: 4000mg in 24 hrs. 10 Tablet 0 05/06/2022 Active Social History Tobacco Use Types Packs/Day Years Used Date Smoking Tobacco: Never Assessed Sex and Gender Information Value Date Recorded Sex Assigned at Not on file Gender Identity Not on file Sexual Orientation Not on file Last Filed Vital Signs Vital Sign Reading Time Taken Comments Blood Pressure 151/71 05/06/2022 12:00 PM CHANNEL CEMENTER Pulse 55 05/06/2022 12:00 PM CHANNEL CEMENTER Temperature 35.6 ??C (96.1 ??F) 05/06/2022 1 2:00 PM CHANNEL CEMENTER Respiratory Rate 16 05/06/2022 12:0 0 PM CHANNEL CEMENTER Oxygen Saturation 95% 05/06/2022 12: 00 PM CHANNEL CEMENTER Inhaled Oxygen Concentration - - Weight 108.8 kg (239 lb 12.8 oz) 05/06/2022 8:30 AM CHANNEL CEMENTER Height 162.6 cm (5' 4) 05/06/2022 8:30 AM CHANNEL CEMENTER Body Mass Index 41.16 05/06/2022 8:30 AM CHANNEL CEMENTER Plan of Treatment Health Maintenance Due Date Last Done Comments Tdap 1966 Depression screening for age 12+ 1967 BMI (ht and wt on same day) for age 18+ 1973 Hepatitis C screening for age 18-79 1973 Tetanus booster 1975 Colonoscopy through age 75 2000 Lipids for age 45-75 2000 Mammogram for age 45-75 2000 Zoster (shingles) series for age 50+ (1 of 2) 2005 DEXA/DXA scan for age 65+ 2020 Pneumococcal series for age 65+ (1 of 1 - PCV) 2020 COVID-19 vaccine series (2022-24 season) 2023 08/03/2020, 07/13/2020 Influenza for age 65+ 02/27/2023 Medical Devices Implanted Type Area Heat Treat Supervisor Device Identifier Shelf Expiration Date Model / Serial / Lot Stent Uret [id number] Contour - [id number] Implanted:Qty: 1 on 05/06/2022 by Daniel Pires MD at [facility] Left: Ureter [facility] Urology 02/21/2025 [id number] / / [id number] Advance Directives Latest Code Status on File Code Status Date Activated Date Inactivated Comments Full Code 05/06/2022 7:58 AM 05/06/2022 3:51 PM Question Answer Comments Code Status Discussion: Unable to Assess Preferences, Provider to review later Care Teams Rehabilitation Engineer Relationship Specialty Start Date End Date Kevin Rueda MD PCP - General Family Practice 04/30/22
== END 2023-07-15 12:07 | disposition home or self-care (01) ==
LOC: LKVREF 12:07
PROVIDERS: PCP Family Medicine; Visit Provider Family Medicine
DX: C67.9 Malignant neoplasm of bladder, unspecified (principal); Z13.89 Encounter for screening for other disorder
CPT/HCPCS: 87086

== ENCOUNTER 2023-10-19 08:55 | Outpatient (CLI) | payer MEDICARE, BC, SELFPAY ==
--- OUTSIDE RECORDS SUMMARY | 2023-10-19 08:58 | XMS_ITS | Clinical Summary ---
Author Name Unknown Organization [facility] Address [address] [facility] [place] [address] Care Team Providers Care Liquid Waste Treatment Plant Operator Name Role Phone Colette Verma PA-C Primary Care Provider + [phone] Source Comments You are receiving this document as you are listed as the primary care provider,follow-up provider, or the patient has been referred to you for consultation.This is in compliance with the Medicare and[facility] EHR Incentive Program,which states Providers who transition their patient to another setting of careor provider of care or refers their patient to another provider of care shouldprovide summary care record for each transition of care or referral. [facility] Allergies No known active allergies Medications Medication Sig Dispensed Refills Start Date End Date Status aspirin, enteric-coated 81 MG enteric coated tablet Take 81 mg by mouth daily. Active Adalimumab (HUMIRA) 40 MG/0.4ML PSKT 1 shot twice a month Active nystatin (MYCOSTATIN) 722657 UNIT/GM creamIndications:Cand katya infection of flexural skin Apply to rash under breasts bid prn 60 g 5 01/25/2018 Active blood glucose (ACCU-CHEK CARLY PLUS) test strip Use to test daily. ICD 10 - E11.9 100 Strip 3 07/02/2018 Active ACCU-CHEK CARLY PLUS meter Use to test daily. DX CODE: E11.9 1 Each 07/02/2018 Active lancets (ACCU-CHEK FASTCLIX) Use to test daily. ICD 10 - E11.9 100 Each 3 07/02/2018 Active metFORMIN (GLUCOPHAGE) 1000 MG tabletIndications:Typ e 2 diabetes mellitus without complication, without long-term current use of insulin (HRC) TAKE 2 TABS BY MOUTH TWICE DAILY WITH FOOD 360 Tablet 08/09/2018 Active rosuvastatin (CRESTOR) 10 MG tabletIndications:Typ e 2 diabetes mellitus without complication, without long-term current use of insulin (HRC) Take 1 Tablet by mouth daily. 30 Tablet 11/05/2018 Active omeprazole (PRILOSEC) 20 MG capsuleIndications:Ga stroesophageal reflux disease without esophagitis Take 1 Capsule by mouth daily. Take 1 hour before a meal. 90 Capsule 1 11/08/2018 Active losartan (COZAAR) 25 MG tabletIndications:Ess ential hypertension (HRC) Take 1 Tablet by mouth daily. 30 Tablet 11/05/2018 Active Active Problems Problem Noted Date [...] Father Alzheimer's Mother No Known Problems Son Servandoophdiane Relation Name Status Comments Father Mother Alive [...] 1955 Hep C Screening (Preventive Services) 1955 Adult Preventive Visit 1973 Zoster/Shingles (1 of 2) 2005 Diabetes: HGBA1C 04/27/2018 01/25/2018 Mammogram 05/12/2018 05/12/2017 (Completed) Diabetes: Creatinine 01/25/2019 01/25/2018 Diabetes: Urine Microalbumin 02/15/2019 02/15/2018 Pneumococcal 65+ Yrs (2 - PCV) 09/28/2021 09/28/2020 COVID-19 Vaccine (3 - 2022- season) 2023 08/03/2020, 07/13/2020 Influenza (#1) 2023 04/17/2020, 10/0 12/2018, 06/01/2017, Additional history exists DTaP/Tdap/Td (2 - [...] on patient's age to complete this topic Procedures Procedure Name Priority Date/Time Associated Diagnosis Comments ALBUMIN/CREAT RATIO Routine 02/15/2018 2 :40 PM CDT Type 2 diabetes mellitus without complication, without long-term current use of insulin (HRC) COMPREHENSIVE METABOLIC PANEL Routine 01/25/2018 2:25 PM CDT Type 2 diabetes mellitus without complication, without long-term current use of insulin (HRC) HGB A1C Routine 01/25/2018 2:25 PM CDT Type 2 diabetes mellitus without complication, without long-term current use of insulin (HRC) from Last 3 Months or Most Recently Relevant to Health Maintenance Results * Microalb/Creat Ratio (02/15/2018 2:40 PM CDT) Microalbumin Urine 29.7 mg/L [place] [facility] U Creat Random 121 mg/dL [place] [facility] Microalbumin/Crea tinine Ratio 24.5 0.0 - 30.0 [facility] Urine specimen (specimen) 02/15/2018 2:40 PM CDT 02/15/2018 4:52 PM CDT Narrative [place] [facility] - 02/15/2018 5:49 PM CDT Performed at [facility], [address] [place] [address] CLIA number [id number] Colette Verma PA-C LAB_1 Performing Organization Address City/State/[facility] Co de Phone Number [place] SOFT [email or web address] [place], [place] [address] * (ABNORMAL) Comp Metabolic Panel (01/25/2018 2:25 PM CDT) Aspartate Aminotransferase 33 10 - 40 U/L [facility] Lab Glucose 108(H) 70 - 100 mg/dL [place] [facility] Comment: The stated glucose range is for the fasting state. Non-fasting glucose range is 70-180 mg/dL Bilirubin Total 0.9 0.2 - 1.2 mg/dL [...] Serum 8.1 6.4 - 8.3 g/dL [facility] Creatinine Serum 0.70 0.55 - 1.02 mg/dL [facility] Est GFR Am >60 >60 mL/min/1. 73m2 [facility] Est GFR Non-Afr Am >60 >60 mL/min/1. 73m2 PN [facility]FT Comment: Normal>60, moderate decrease 30 - 59, severe decrease 15 - 29, renal failure <15 mL/min/1.73 m2 NOTE: ??Choose the eGFR result above appropriate for the race of the patient. Alanine Aminotransferase 31 9 - 55 U/L [facility] CO2 26 22 - 31 mmol/L [place] [facility] 01/25/2018 2:25 PM CDT 01/25/2018 4:51 PM CDT Narrative [place] [facility] - 01/25/2018 5:36 PM CDT Performed at [facility], [address] [place] [address] CLIA number [id number] Colette Verma PA-C LAB_1 Performing Organization Address [facility] Co de Phone Number PN SOFT [address] [place] [address] * (ABNORMAL) Hgb A1c (01/25/2018 2:25 PM CDT) [facility] HGB A1C 7.1(H) 4.0 - 5.6 % [place] [facility] 01/25/2018 2:25 PM CDT 01/25/2018 6:21 PM CDT Narrative [place] [facility] - 01/25/2018 11:00 PM CDT Performed at [address] [address] CLIA number [id number] Colette Verma PA-C LAB_1 Performing Organization Address [facility] Co de Phone Number PN SOFT [address] [place] [address] from Last 3 Months or Most Recently Relevant to Health Maintenance Care Teams Liquid Waste Treatment Plant Operator Relationship Specialty Start Date End Date Colette Verma, PADebiC [address] [place] [address] PCP - General Physician Cash Reconciliation Specialist 01/19/18
--- OUTSIDE RECORDS SUMMARY | 2023-10-19 08:58 | XMS_ITS | Clinical Summary ---
Author Name Unknown Organization [employer] [facility] Address [place], [place] [address] Care Team Providers Care Public Relations Professional Name Role Phone Kevin Rueda MD Primary Care Provider [phone] Allergies Active Allergy Reactions Criticality Noted Date Comments Cephalexin Diarrhea 12/27/2015 Nausea; vomiting Lisinopril Cough 08/13/2016 Medications Medication Sig Dispensed Refills Start Date End Date Status metFORMIN (GLUCOPHAGE) 1,000 mg tablet Take 1,000 mg by mouth two times daily with meals. 02/12/2022 Active omeprazole (PRILOSEC) 20 mg Delayed-Release capsule Take 20 mg by mouth. 03/05/2022 Acti ve aspirin (ECOTRIN) 81 mg enteric coated tablet Take 81 mg by mouth. A ctive losartan (COZAAR) 25 mg tablet Take 25 mg by mouth once daily. 04/12/2022 Active rosuvastatin (CRESTOR) 10 mg tablet Take 10 mg by mouth once daily. 04/12/2022 Active glipiZIDE extended-release (GLUCOTROL XL) 5 mg Extended-Release tablet Take 5 mg by mouth. 01/30/2022 Activ e risankizumab-rzaa (Skyrizi) 150mg/1.66mL(75 mg/0.83 mL x2) sykt Skyrizi 150 mg/1.66 mL(75 mg/0.83 mL x 2) subcutaneous syringe kit Inject by subcutaneous route. Active oxyCODONE-acetamin ophen (PERCOCET) 5-325 mg per tabletIndications: Post-operative state Take 1-2 Tablets by mouth every 6 hours if needed for Pain. Max acetaminophen dose: 4000mg in 24 hrs. 10 Tablet 05/06/2022 Active Social History Tobacco Use Types Packs/Day Years Used Date Smoking Tobacco: Never Assessed Sex and Gender Information Value Date Recorded Sex Assigned at Not on file Gender Identity Not on file Sexual Orientation Not on file Last Filed Vital Signs Vital Sign Reading Time Taken Comments Blood Pressure 151/71 05/06/2022 12:00 PM ELECTRICAL WIRER Pulse 55 05/06/2022 12:00 PM ELECTRICAL WIRER Temperature 35.6 ??C (96.1 ??F) 05/06/2022 1 2:00 PM ELECTRICAL WIRER Respiratory Rate 16 05/06/2022 12:0 0 PM ELECTRICAL WIRER Oxygen Saturation 95% 05/06/2022 12: 00 PM ELECTRICAL WIRER Inhaled Oxygen Concentration - - Weight 108.8 kg (239 lb 12.8 oz) 05/06/2022 8:30 AM ELECTRICAL WIRER Height 162.6 cm (5' 4) 05/06/2022 8:30 AM ELECTRICAL WIRER Body Mass Index 41.16 05/06/2022 8:30 AM ELECTRICAL WIRER Plan of Treatment Health Maintenance Due Date [...] 1 - PCV) 2020 COVID-19 vaccine series (3 - 2022-24 season) 2023 08/03/2020, 07/13/2020 Influenza for age 65+ 02/28/2024 Medical Devices Implanted Type Area Home Based Assistant Device Identifier Shelf Expiration Date Model / Serial / Lot Stent Uret [id number] Contour - [id number] Implanted:Qty: 1 on 05/06/2022 by Daniel Pires MD at [facility] Left: Ureter [facility] 02/21/2025 [id number] / / [id number] Advance Directives * Full Code (Latest Code Status on File) Date Activated Date Inactivated Comments 05/06/2022 7:58 AM 05/06/2022 3:51 PM Question Answer Comments Code Status Discussion: Unable to Assess Preferences, Provider to review later Care Teams Public Relations Professional Relationship Specialty Start Date End Date Kevin Rueda MD PCP - General Family Practice 04/30/22
== END 2023-10-19 08:56 | disposition home or self-care (01) ==
PROVIDERS: PCP Family Medicine; Visit Provider Family Medicine
DX: E78.2 Mixed hyperlipidemia (principal); E11.59 Type 2 diabetes mellitus with other circulatory complications
CPT/HCPCS: 80048; 80061

== ENCOUNTER 2024-01-27 08:55 | Outpatient (CLI) | payer MEDICARE, BC, SELFPAY ==
--- OUTSIDE RECORDS SUMMARY | 2024-01-27 08:58 | XMS_ITS | Data Portability ---
Author Organization [place] [facility], [facility] Address [address] [place] [address] Assessment No assessment recorded. Plan of Treatment Reminders Order Date Submit Date Provider Last Modified By Organization Details Last Modified Time Details Appointments None recorded. Lab urinalysis , dipstick 2021 [facility], [address], [place], [address], 11:08:04 culture, urine 2021 [facility], [address], [address], [place], [address], 12:12:58 kidney stone, 24-hour urine panel 2021 [email or web address], [address], [place], [address], 11:26:58 Referral None recorded. Procedures None recorded. Surgeries None recorded. Imaging CT, urogram - CT A/P with and without contrast 2021 [email or web address] 30 [facility], [address] [facility], [place], [address], 08:57:20 Medication Orders Diflucan 150 mg tablet 2021 [facility], [address] , [place], [address], 10:05:31 Patient TargetsNo targets recorded. Patient InstructionsNo instructions recorded. Reason for Referral None Reported. Results Created Date Observation Date Name Description Value Unit Range Abnormal Flag LastModifiedBy Organization Detail LastModifiedTime 04/14/2004/14/2022 URINE CULTU RE final report MICROB IOLOGY RESULT S abnormal Not Available [facility] [address], [place], [address], 04/16/2022 12:12:58 04/14/2004/14/2022 urina lysis , dipst ick Color-Status Yellow Not Available [facility] [address], [place], [address], 04/14/2022 11:07:08 04/14/2004/14/2022 urina lysis , dipst ick pH-Status 6.0 Not Available [facility] [address], [place], [address], 04/14/2022 11:07:08 04/14/2004/14/2022 urina lysis , dipst ick Nitrates-Sta tus negati ve Not Available [facility] [address], [place], [address], 04/14/2022 11:07:08 04/14/2004/14/2022 urina lysis , dipst ick Blood-Status Trace Not Available [facility] [address], [place], [address], 04/14/2022 11:07:08 04/14/2004/14/2022 urina lysis , dipst ick Leuko-Status Modera te Not Available [facility] [address], [place], [address], 04/14/2022 11:07:08 04/24/20 22 04/24/2022 CT, urogr am No observ ation record ed. [email or web address] [facility] [address] [place], [address], 04/25/2022 15:11:09 Result Notes None recorded. Procedures Surgical History Date Name Laterality Status Provider Name and Address Organization Details Recorded Time 05/13/20 Cystoscopy with foreign body/stent removal completed Daniel Pires MD [address] [place] [address],[address], [place], [address], [facility] 05/12/2022 19:29:28 05/13/20 22 [facility] 09:50:42 04/14/20 22 Cystoscopy- female completed Daniel Pires MD [address] [place] [address],[address], [place], [address], [facility] 04/14/2022 21:30:10 04/14/20 22 Keflex [facility] 04/14[facility]22 11:47:13 transurethral excision of neoplasm of urinary bladder completed Daniel Pires MD [address] [place] [address],[address], [place], [address], [facility] 04/14/2022 11:06:03 Imaging Results Imaging Date Name Status LastModified by Organiz ation Details LastModified Time 04/24/2022 CT, urogram completed [facility] [address] [place], [address], 04/25/2022 15:11:09 Procedure Notes None recorded. Medical Equipment None Reported. Allergies Allergen ID Allergen Name Allergen Category Reaction Reaction Severity Criticality Documentation Date Start Date Code Code System Note Provider Name and Address Organization Details Recorded Time 364417 Keflex medicatio n diarrhea Not available Not available 04/17/2022 7 RxNorm Tran aguirre [facility] 2 15:14:19 899614 Cipro medicatio n Not available Not available Not available 05/13/202208473 3 RxNorm Tran aguirre [facility] 09:50:23 775457 lisinopri l medicatio n Not available Not available Not available 05/13/2022 22400 RxNorm [facility] 09:50:28 Medications Name Sig Start Date Stop Date Status Note LastModified by Organization Details LastModified Time celecoxib 200 mg capsule TAKE ONE CAPSULE BY MOUTH ONCE DAILY 04/14 completed Not Available Not Available Not Available fluconazole 150 mg tablet TAKE 1 TABLET BY MOUTH NEEDED active Not Available Not Available No t Available glipizide ER 10 mg tablet, extended release 24 hr TAKE ONE TABLET BY MOUTH ONCE DAILY active Not Available Not Available No t Available betamethaso ne, augmented 0.05 % topical cream APPLY TO BOTH LOWER LEGS TWO TIMES A DAY FOR 2-3 WEEKS, THEN TWICE DAILY NEEDED FOR FLARES active Not Available Not Available No t Available glipizide ER 5 mg tablet, extended release 24 hr TAKE ONE TABLET BY MOUTH ONCE DAILY 04/14 completed Not Available Not Available Not Available sulfamethox azole 800 mg-trimetho prim 160 mg tablet TAKE ONE TABLET BY MOUTH TWICE A DAY 05/13 completed Not Available Not Available Not Available oxycodone-a cetaminophe n 5 mg-325 mg tablet active Not Available Not Available No t Available triamcinolo ne acetonide 0.025 % topical cream APPLY TOPICAL ROUTE TO THE EAR TWO TIMES A DAY FOR 2-3 WEEKS , THEN 2 DAYS A WEEK AFTER. 04/14 completed Not Available Not Available Not Available metformin 1,000 mg tablet TAKE ONE TABLET BY MOUTH TWICE A DAY WITH MEALS active Not Available Not Available No t Available losartan 25 mg tablet TAKE ONE TABLET BY MOUTH ONCE DAILY active Not Available Not Available No t Available omeprazole 20 mg capsule,del ayed release TAKE ONE CAPSULE BY MOUTH ONCE DAILY active Not Available Not Available No t Available cefuroxime axetil 500 mg tablet TAKE ONE TABLET BY MOUTH EVERY 12 HOURS FOR 7 DAYS 05/13 completed Not Available Not Available Not Available ketoconazol e 2 % topical cream APPLY TO THE LOWER ABDOMEN ONCE DAILY 04/14 completed Not Available Not Available Not Available rosuvastati n 10 mg tablet TAKE ONE TABLET BY MOUTH ONCE DAILY active Not Available Not Available No t Available Januvia 100 mg tablet TAKE ONE TABLET BY MOUTH ONCE DAILY 04/14 completed Not Available Not Available Not Available Contour Next Test Strips USE DIRECTED ONCE DAILY active Not Available Not Available No t Available Contour Next One Meter USE DIRECTED ONCE DAILY active Not Available Not Available No t Available Skyrizi 150 mg/1.66 mL(75 mg/0.83 mL x 2) subcutaneou s syringe kit Inject by subcutane ous route. active Not Available Not Available No t Available Vitals Date Recorded Body height Body weight Provider Name and Address Organization Details Last Updated DateTime 04/14/2022 162.56 cm 559197.58 g Daniel Pires MD [address] [place] [address],[address], [address] [place] [address] Urology 04/14/2022 11:03:33 Date Recorded Body height Body mass index (BMI) Body weight Provider Name and Address Organization Details Last Updated DateTime 05/13/2022 162.56 cm 40.3 kg/m2 234715.21 g Tran Gallardo [facility] 05/13/2022 09:49:52 Social History Question Answer Notes LastModified by Organizat ion Details LastModified Time Tobacco Smoking Status Former Smoker Daniel Pires MD [address] [place] [address],[address], [address] 04/14/2022 11:05:48 What Is Your Level Of Alcohol Consumption? Moderate Information not available 04/14/2022 What Is Your Level Of Caffeine Consumption? Occasional Information not available 04/14/2022 When Did You Quit Smoking? 6-10yearssince lastcigarette Information not available 04/14/2022 What Was The Date Of Your Most Recent Tobacco Screening? 05/13/2022 [email or web address] Information not available 05/13/2022 Do You Use Any Illicit Or Recreational Drugs? No Information not available 04/14/2022 Sex: Unknown Functional Status None recorded. Mental Status None recorded. Family History Relationship Description Onset Age of this Age Resolved Age Notes Father No current problems or disability Mother No current problems or disability Medical History Condition Response Diabetes Y Cancer Y Gynecological HistoryNo gynecological history recorded. Obstetrics History GPAL:G 0 P 0 0 0 0 Immunizations Vaccine Type Date Status Provider Name and Address Organization Details Recorded Time pneumococcal polysaccharide PPV23 09/28/2020 completed Daniel Pires MD [address] [facility],[address], [place], [address], [facility] 04/14/2022 11:03:41 Past Encounters Encounter ID Performer Location Encounter Start Date Encounter Closed Date Diagnosis/Indication Diagnosis SNOMED-CT Code [id number] Daniel Pires MD [facility] [address] [place] [address] 04/14/2022 10:39:50 04/17/2022 16:54:03 History of malignant neoplasm of bladder 509966287 Microscopic hematuria 19 [id number] Melissa Bimari [facility] [address] [place] [address] 05/13/2022 09:36:28 05/16/2022 13:57:18 History of malignant neoplasm of bladder 774922317 Microscopic hematuria 19 1148471 Ureteric stone 79339377 Candidiasis of vagina 72 425400 Health Concerns Section Related Observation LastModified by Organization Detai ls LastModified Time None Recorded Concern Status LastModified by Organization Details LastModified Time None Recorded Advance Directives Directive None Recorded Payers Encounter Date Sequence Insurance Name Policy Number Policy Anton Covered Member ID Anton Member ID Guarantor Name 04/14/2022 1 [employer] [id number] Adeola Hector [id number] Adeola Hector 05/13/2022 1 [place] (MEDICARE REPLACEMENT HMO) [id number] Adeola Hector [id number] Adeola Hector Notes Date Note Type Note Provider Name and Address Organization Details Recorded Time 04/14/2022 text/html HPI Notes: 66 yo female with history of Bladder cancer, plaque psoriasis, HTN, DM (type 2), hyperlipidemia, and obesity. She reports 2 UTIs in the past year. Her recent UAs have shown microscopic hematuria and pyuria - UCx have been negative. She voids every 2-3 hours during the day and 2x/night. She has occasional urgency - denies hesitancy, slow stream, or dysuria. - s/p TUR-BT (05/26/12) - LG Ta ([place]) - UA - trace blood - moderate LE Daniel Pires MD [address] [facility],[address], [place], [address], [facility] 04/14/2022 21:32:47 05/13/2022 text/html HPI Notes: 66 yo female with history of Bladder cancer, kidney stone (05/06/22 - 100% CaOx monohydrate), plaque psoriasis, HTN, DM (type 2), hyperlipidemia, and obesity. She reports 2 UTIs in the past year. Her recent UAs have shown microscopic hematuria and pyuria - UCx have been negative. She voids every 2-3 hours during the day and 2x/night. She has occasional urgency - denies hesitancy, slow stream, or dysuria. UCx (04/14/22) - E.coli ([place]-sensitive) - s/p TUR-BT (05/26/12) - LG Ta ([place]) - s/p Left URS / HLL - (05/06/22) 05/13/22 - She presents for Left ureteral stent removal. She notes some bladder irritation - no flank pain. She does complain of vaginal itching. ____ CT Urogram (04/24/22) - Left - 1 cm stone (ureter - level of iliac vessels) - + hydronephrosis - Left - 1.5 cm adrenal nodule Daniel Pires MD [address] [facility],[address], [place], [address], [facility] 05/13/2022 10:37:42 OBGyn Episode No OBEpisode recorded.
--- OUTSIDE RECORDS SUMMARY | 2024-01-27 08:58 | XMS_ITS | Clinical Summary ---
Author Organization [facility] Address [place], [place] [address] Care Team Providers Care Barrel Loader Name Role Phone Kevin Rueda MD Primary Care Provider [phone] Allergies Active Allergy Reactions Criticality Noted Date [...] in 24 hrs. 10 Tablet 05/06/2022 Active Encounters Date Type Department Care Team Description 11/24/2023 Lab Requisition [facility] [phone] Kevin Rueda MD from Last 3 Months Social History Tobacco Use Types Packs/Day Years Used Date Smoking Tobacco: Never Assessed Sex and Gender Information Value Date Recorded Sex Assigned at Not on file Gender Identity Not on file Sexual Orientation Not on file Last Filed Vital Signs Vital Sign Reading Time Taken Comments Blood Pressure 151/71 05/06/2022 12:00 PM [employer] SUPERVISOR Pulse 55 05/06/2022 12:00 PM [employer] SUPERVISOR Temperature 35.6 ??C (96.1 ??F) 05/06/2022 1 2:00 PM [employer] SUPERVISOR Respiratory Rate 16 05/06/2022 12:0 0 PM [employer] SUPERVISOR Oxygen Saturation 95% 05/06/2022 12: 00 PM [employer] SUPERVISOR Inhaled Oxygen Concentration - - Weight 108.8 kg (239 lb 12.8 oz) 05/06/2022 8:30 AM [employer] AND [employer] SUPERVISOR Height 162.6 cm (5' 4) 05/06/2022 8:30 AM [employer] AND [employer]AT [employer] SUPERVISOR Body Mass Index 41.16 05/06/2022 8:30 AM [employer] AND HAT [employer]ODUCTION SUPERVISOR Plan of Treatment Health Maintenance Due Date [...] PCV) 2020 COVID-19 vaccine series (3 - 2022- season) 2023 08/03/2020, 07/13/2020 Influenza for age 65+ 02/28/2024 Medical Devices Implanted Type Area Draughtsman Device Identifier Shelf Expiration Date Model / Serial / Lot Stent Uret [id number] Contour - [id number] Implanted:Qty: 1 on 05/06/2022 by Daniel Pires MD at [facility] Left: Ureter [facility] 02/21/2025 [id number] / / [id number] Procedures Procedure Name Priority Date/Time Associated Diagnosis Comments QFT MITOGEN PERFORMABLE Routine 11/24/2023 10:05 AM CDT QFT TB2 PERFORMABLE Routine 11/24/2023 1 0:05 AM CDT QFT TB1 PERFORMABLE Routine 11/24/2023 1 0:05 AM CDT QUANTIFERON TB GOLD PLUS Routine 11/24/2023 10:05 AM CDT QUANTIFERON TB GOLD PLUS Routine 11/24/2023 10:05 AM CDT from Last 3 Months Results * QFT MITOGEN PERFORMABLE (11/24/2023 10:05 AM CDT) MITOGEN 10.00 IU/mL 11/26/2023 10:37 AM CDT [facility] Blood BLOOD SPECIMEN / Unknown Client Collect / Unknown 11/24/2023 10:05 AM CDT 11/24/2023 3:30 PM CDT Kevin Rueda MD CHEMISTRY [facility] [address] * QFT TB2 PERFORMABLE (11/24/2023 10:05 AM CDT) TB2 0.04 IU/mL 11/26/2023 10:23 AM CDT [facility] Blood BLOOD SPECIMEN / Unknown Client Collect / Unknown 11/24/2023 10:05 AM CDT 11/24/2023 3:30 PM CDT Kevin Rueda MD CHEMISTRY [facility] [address] [place] [address], [place] * QFT TB1 PERFORMABLE (11/24/2023 10:05 AM CDT) TB1 0.04 IU/mL 11/26/2023 10:23 AM CDT [facility] Blood BLOOD SPECIMEN / Unknown Client Collect / Unknown 11/24/2023 10:05 AM CDT 11/24/2023 3:30 PM CDT Kevin Rueda MD CHEMISTRY [facility] [address] [place] [id number], [place] * QUANTIFERON TB GOLD PLUS (11/24/2023 10:05 AM CDT) QFTP NIL 0.04 11/26/2023 11:08 AM CDT [facility] TB1 0.04 IU/mL 11/26/2023 11:08 AM CDT [facility] TB2 0.04 IU/mL 11/26/2023 11:08 AM CDT [facility] MITOGEN 10.00 IU/mL 11/26/2023 11:08 AM CDT [facility] QFTP TB AG1 - NIL 0.00 024 11:08 AM CDT [facility] TB1-NIL % OF NIL 0 % 11/26/19 24 11:08 AM CDT [facility] QFTP TB AG2 - NIL 0.00 024 11:08 AM CDT [facility] TB2-NIL % OF NIL 0 % 11/26/19 24 11:08 AM CDT [facility] QFTP MITOGEN - NIL 9.96 2023 11:08 AM CDT [facility] QFTP QUANTIFERON INTERPRETATION Negative Negative 11/26/2023 11:08 AM CDT [facility] Blood BLOOD SPECIMEN / Unknown Client Collect / Unknown 11/24/2023 10:05 AM CDT 11/24/2023 3:30 PM CDT Narrative [facility] - 11/26/2023 11:08 AM CDT M. tuberculosis infection not likely, but cannot be excluded in cases of immunosuppression. CAUTION: The performance of QuantiFERON-TB Gold Plus has not been evaluated in specimens from: - Individuals with impaired or altered immune factors (HIV infections, transplant patients, those receieving immunosuppressive drugs such as corticosteroids) and those with other clinical conditions (e.g., diabetes, hematological disorders). - Individuals younger than 17 years old. ??Refer to CDC website for testing recommendations in children 6-17 years old. - women Kevin Rueda MD CHEMISTRY [facility] [address] [place] [address], from Last 3 Months Advance Directives * Full Code (Latest Code Status on File) Date Activated Date Inactivated Comments 05/06/2022 7:58 AM 05/06/2022 3:51 PM Question Answer Comments Code Status Discussion: Unable to Assess Preferences, Provider to review later Care Teams Barrel Loader Relationship Specialty Start Date End Date Kevin Rueda MD PCP - General Family Practice 04/30/22
--- OUTSIDE RECORDS SUMMARY | 2024-01-27 08:58 | XMS_ITS | Clinical Summary ---
Author Organization [facility] Address [address] [address] Care Team Providers Care Plate Glass Grinder Name Role Phone Colette Verma PA-C Primary Care Provider + [phone] Source Comments You are receiving this document as you are listed as the primary care provider,follow-up provider, or the patient has been referred to you for consultation.This is in compliance with the Medicare and[facility] EHR Incentive Program,which states Providers who transition their patient to another setting of careor provider of care or refers their patient to another provider of care shouldprovide summary care record for each transition of care or referral. [facility] No known active allergies Medications Medication Sig Dispensed Refills Start Date End Date Status aspirin, enteric-coated 81 MG enteric coated tablet Take 81 mg by mouth daily. Active Adalimumab (HUMIRA) 40 MG/0.4ML PSKT 1 shot twice a month Active nystatin (MYCOSTATIN) 575927 UNIT/GM creamIndications:Cand katya infection of flexural skin [...] complication, without long-term current use of insulin (C) TAKE 2 TABS BY MOUTH TWICE DAILY [...] PCV) 09/28/2021 09/28/2020 COVID-19 Vaccine (3 - season) 2023 08/03/2020, 07/13/2020 Influenza (#1) 2024 04/17/2020, 1012/2018, 06/01/2017, Additional history exists DTaP/Tdap/Td [...] - 02/15/2018 5:49 PM CDT Performed at [facility], [address] [place] [address] CLIA number [id number] Colette Verma PA-C LAB_1 Performing Organization Address City/State/[facility] Co de Phone Number PN SOFT [address] [place] [address] * (ABNORMAL) Comp Metabolic Panel (01/25/2018 2:25 [...] - 01/25/2018 5:36 PM CDT Performed at [facility], [address] [place] [address] CLIA number [id number] Colette Verma PA-C LAB_1 Performing Organization Address [facility] Co de Phone Number PN SOFT [address] [place] [address] * (ABNORMAL) Hgb A1c (01/25/2018 2:25 PM CDT) [facility] HGB A1C 7.1(H) 4.0 - 5.6 % PN SOFT 01/25/2018 2:25 PM CDT 01/25/2018 6:21 PM CDT Narrative PN SOFT - 01/25/2018 11:00 PM CDT Performed at [facility], [address] [place] [address] CLIA number [id number] Colette Verma PA-C LAB_1 Performing Organization Address [facility] Co de Phone Number PN SOFT [address] [place] [address] from Last 3 Months or Most Recently Relevant to Health Maintenance Care Teams Plate Glass Grinder Relationship Specialty Start Date End Date Colette Verma, PADebiC [address] [place] [address] PCP - General Physician Chief Embalmer 01/19/18
--- NOTE | 2024-01-27 09:15 | CRLHL7_ITS ---
For Patients: As a result of the Century Cures Act, medical imaging exams and procedure reports are released immediately into your electronic medical record. You may view this report before your referring provider. If you have questions, please contact your health care provider. BILATERAL SCREENING MAMMOGRAM WITH COMPUTER-AIDED DETECTION AND TOMOSYNTHESIS TECHNIQUE: CC and MLO views were obtained. These mammographic images have been obtained using full-field digital technique. These mammographic images were interpreted with the benefit of computer-aided detection. Breast Tomosynthesis was used in this interpretation. COMPARISON FILM: 08/06/18, 07/21/17, 07/22/14. FINDINGS: The breasts are almost entirely fatty. IMPRESSION: There is no radiographic evidence for malignancy. ASSESSMENT: BI-RADS Category 1: Negative RECOMMENDATION: Routine screening mammogram in 1 year. A lay language report of this examination will be provided to the patient. Ben Neville M.D. Diagnostic Radiologist [email or web address] SP/Dictated by: Ben Neville MD @ 01/28/2024 11:07:00 AM (Electronically Signed)
== END 2024-01-27 08:56 | disposition home or self-care (01) ==
LOC: MAMMO 08:56
PROVIDERS: PCP Family Medicine; Visit Provider Family Medicine
DX: Z12.31 Encounter for screening mammogram for malignant neoplasm of breast (principal)
CPT/HCPCS: 77063; 77067

== ENCOUNTER 2024-09-02 08:54 | Outpatient (CLI) | payer MEDICARE, BC, SELFPAY | END 2024-09-02 08:55 | disposition home or self-care (01) | PROVIDERS: PCP Family Medicine; Visit Provider Family Medicine | DX: E11.65 Type 2 diabetes mellitus with hyperglycemia (principal); I15.2 Hypertension secondary to endocrine disorders; E78.5 Hyperlipidemia, unspecified; Z11.1 Encounter for screening for respiratory tuberculosis | CPT/HCPCS: 80048; 80061; 86480 ==

== ENCOUNTER 2025-01-27 08:55 | Outpatient (CLI) | payer MEDICARE, BC, SELFPAY ==
--- NOTE | 2025-01-27 09:15 | CRLHL7_ITS ---
For Patients: As a result of the Century Cures Act, medical imaging exams and procedure reports are released immediately into your electronic medical record. You may view this report before your referring provider. If you have questions, please contact your health care provider. INDICATION: BILATERAL SCREENING MAMMOGRAM, ASYMPTOMATIC 69 Y/O FEMALE COMPARISON: 01/27/2024, 01/19/2023, 01/07/2022 TECHNIQUE: Digital mammogram in CC and MLO projections including computer-aided detection (CAD) and tomosynthesis. BREAST COMPOSITION: The breasts are almost entirely fatty. FINDINGS: No suspicious findings. ASSESSMENT: BI-RADS 2 Benign RECOMMENDATION: Annual screening mammogram. A lay language report of this examination will be provided to the patient. Dictated by: Ben Neville MD @ 01/30/2025 10:08:44 (Electronically Signed)
== END 2025-01-27 08:56 | disposition home or self-care (01) ==
LOC: MAMMO 08:56
PROVIDERS: PCP Family Medicine; Visit Provider Family Medicine
DX: Z12.31 Encounter for screening mammogram for malignant neoplasm of breast (principal)
CPT/HCPCS: 77063; 77067

== ENCOUNTER 2025-03-06 09:28 | Outpatient (CLI) | payer MEDICARE, BC, SELFPAY | END 2025-03-06 09:29 | disposition home or self-care (01) | LOC: LKVREF 09:30 | PROVIDERS: PCP Family Medicine; Visit Provider Family Medicine | DX: Z13.21 Encounter for screening for nutritional disorder (principal) | CPT/HCPCS: 82607 ==